=== PATIENT | female | born 1995 | race Hispanic/Latino ===

== ENCOUNTER 2019-11-06 07:25 | Outpatient (CLI) | payer MEDICAID, SELFPAY ==
[2016-07-11 04:05] VITALS: BMI 31.0
[2019-11-06 07:37] VITALS: BMI 28.8
--- NOTE | 2019-11-06 08:10 | PCM.HP.OB ---
- Problem List (1) 37 weeks gestation of Status: Acute (2) Multiparous Status: Acute History Date of Admission: 11/06/19 Final APURVA: 11/27/19 Final APURVA Source: US <20 weeks Gestational age: 37 Weeks and 0 Days History of this : This is a 24 year-old, who presents at 37 wks for scheduled version. Baby was breech and then transverse on prior ultrasounds. No ctx, vb, lof. Good FM. Medical History: Medical History (Last Updated 11/06/19 @ 08:13 by Mercedez Wall DO) History of drug use Z87.898 History of hepatitis C Z86.19 History of depression Z87.59, Z86.59 Tobacco use Z72.0 Allergies No Known Allergies Allergy (Verified 07/11/16 04:12) Home Medications: Home Medications Vits [Prenatabs FA ] 1 tablet PO DAILY 06/20/14 Oxycodone HCl/Acetaminophen [Percocet 5-325] 1 - 2 tablet PO Q4H PRN PRN #20 tablet 06/21/14 Naproxen [Naprosyn] 250 - 500 mg PO Q8H PRN PRN #30 tablet 07/11/16 Oxycodone HCl/Acetaminophen [Percocet 5-325] 2 tablet PO Q4H PRN PRN #10 tablet 07/13/16 Smoking Status: Former smoker Number of Fetus(es): 1 NST - FHR Rate Baby A Baseline: 130 Variability:: Moderate Accelerations:: 15 x 15 Decelerations:: None NST Reactive:: Yes Uterine Activity:: Irritability History Past Pregnancies: Past Pregnancies Delivery Date Name GA/ Weeks Outcome Route Wt Sex Labor Length Anesthesia Delivery Location Provider FOB Physical Exam General: Alert, No apparent distress HEENT: Atraumatic Abdomen: Soft, Non Tender, Gravid Extremities:: No edema Neurological: Neuro grossly intact Estimated gestational size: Appropriate for gestational size Assessment/Plan All Active Problems 37 weeks gestation of (Acute) Multiparous (Acute) This is a 24 year-old, who presents at 37 wks for scheduled version. - NST reactive - TAUS performed and baby is now vertex presentation - No version needed at this time - RTO this week for weekly OB visit in the office
== END 2019-11-06 08:30 | disposition home or self-care (01) ==
LOC: WPOUT 07:35 → WP 07:36
PROVIDERS: Referring Provider Obstetrics & Gynecology; Visit Provider Obstetrics & Gynecology
DX: Z34.83 Encounter for supervision of other normal pregnancy, third trimester (principal)
CPT/HCPCS: 36415; 59025; 76815

== ENCOUNTER 2019-12-04 07:10 | Inpatient (IN) | payer MEDICAID, SELFPAY ==
[2019-12-04 07:38] VITALS: BMI 28.8
[2019-12-04] MEDS: Lactated Ringers 1,000 ML 50 ML IV (07:50)
[2019-12-04] MEDS: Oxytocin 30 units/NS 500 ml 30 UNITS/500 ML IV.SOLN IV (08:00)
[2019-12-04 08:11] LABS: Absolute Lymphocyte Count 2.04 X10^3/uL (0.83-4.51); Absolute Neutrophil Count 4.6 X10^3/uL (2.0-7.7); Basophil# 0.03 X10^3/uL; Basophil% 0.4 % (0-1); Eosinophil# 0.11 X10^3/uL; Eosinophils% 1.5 % (0-5); Hematocrit 36.6 % (37-47); Hemoglobin 12.6 g/dL (12.0-15.0); Lymphocyte # 2.04 X10^3/ul (4.0); Lymphocyte % 27.3 % (19-41); Mean Corp Hgb Conc 34.4 g/dL (32-36); Mean Corpuscular Hgb 30.9 pg (27.0-32.0); Mean Corpuscular Volume 89.7 fL (81-99); Mean Platelet Vol. 8.9 fl (6.2-12.0); NRBC Flagged by Analyzer 0 % (0-5); Neutrophil % 61.5 % (47-70); Platelet Count 236 K/mm3 (150-450); RBC Distribution Width SD 42.4 fl (35.1-43.9); Red Blood Count 4.08 M/mm3 (4.2-5.4); White Blood Count 7.5 K/mm3 (4.4-11.0)
[2019-12-04 08:25] LABS: Amphetamine Urine VISTA NEGATIVE (<1000 ng/mL); Barbiturate Urine VISTA NEGATIVE (< 200 ng/mL); Benzodiazepine Urine VISTA NEGATIVE (< 200 ng/mL); Cocaine Urine VISTA NEGATIVE (< 300 ng/mL); Ecstacy Urine VISTA NEGATIVE (< 500 ng/mL); Methadone Urine VISTA NEGATIVE (< 300 ng/mL); PCP Urine VISTA NEGATIVE (< 25 ng/mL); THC Urine VISTA POSITIVE (< 50 ng/mL); Vista UDS pH Range 6
--- NOTE | 2019-12-04 13:08 | PCM.HP.OB ---
History Date of Admission: 12/04/19 Final APURVA: 11/27/19 Final APURVA Source: US <20 weeks Gestational age: 41 Weeks and 0 Days History of this : This is a 24 year-old, G [], P [], at 41 weeks gestational age. Medical History: Medical History (Last Updated 11/06/19 @ 08:13 by Mercedez Wall DO) History of drug use Z87.898 History of hepatitis C Z86.19 History of depression Z87.59, Z86.59 Tobacco use Z72.0 Allergies No Known Allergies Allergy (Verified 12/04/19 07:39) Smoking Status: Former smoker Alcohol: None Substance Use Type: Marijuana Number of Fetus(es): 1 NST - FHR Rate Baby A Baseline: normal Variability:: Moderate Accelerations:: 15 x 15 Decelerations:: None NST Reactive:: Appropriate for gestational age FHR Category:: Category I Uterine Activity:: irreg ctxs History Past Pregnancies: Past Pregnancies Delivery Date Name GA/ Weeks Outcome Route Wt Sex Labor Length Anesthesia Delivery Location Provider FOB Expected Infant Delivery Method: Spontaneous Vaginal Review of Systems Constitutional: Denies: Chills, Fever Eyes: Denies: Blurred vision Cardiovascular: Denies: Chest Pain Respiratory: Denies: Cough, Shortness of Breath Gastrointestinal: Denies: Abdominal Pain, Nausea, Vomiting Genitourinary: Denies: Dysuria Gynecological: Denies: Vaginal discharge, Vaginal itching Skin: Denies: Rash Neurological: Denies: Blurred vision, Change in Speech, Slurred speech Physical Exam General: Alert, Cooperative, No apparent distress Cardiovascular: Regular rate Lungs: Normal air movement Abdomen: Soft, Non-Distended, Gravid, Appropriate for Gestational Age Extremities:: No edema Neurological: Cranial nerves II-XII grossly intact. 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 Risk benefits alternatives to induction been discussed with the patient. Her questions were answered to her satisfaction she desires to proceed. We will proceed with Pitocin artificial rupture membranes for induction. May have epidural or IV pain meds or nitrous oxide as needed for pain control. Estimated weight is less than 4000 g and pelvis clinically adequate to expect vaginal delivery.
[2019-12-04] MEDS: Oxytocin 30 units/NS 500 ml 30 UNITS/500 ML IV.SOLN 334 UNITS IV (17:10)
--- NOTE | 2019-12-04 17:40 | PCM.OPRPT ---
Report of Operation Date of Procedure: 12/04/19 Pre-Operative Diagnosis: labor Post-Operative Diagnosis: same Vaginal Delivery Maternal Presentation: Medically Indicated Induction Method of Induction: Pitocin, Amniotomy Medical Reason for Induction: - - 41 weeks Amniotic Membrane Rupture Type: Artificial Amniotic Fluid Description: Clear Final APURVA: 11/27/19 Final APURVA Source: US <20 weeks Gestational age: 41 Weeks and 0 Days Date of Procedure: 12/04/19 Pre-Operative Diagnosis: labor Post-Operative Diagnosis: same Surgery/ Procedure Performed: Spontaneous Vaginal Delivery Type of Anesthesia: None Description of Procedure: A vigorous female infant was delivered TAYLOR over intact perineum. The remainder the infant was delivered with maternal pushing and gentle traction only in less than 15 seconds. The Pitocin infusion was initiated for active management of the third stage. The cord was clamped and cut after 1 minute. The was attended to by the waiting nursing staff. The placenta was delivered spontaneously and intact. The placenta somewhat ragged but appeared intact. A brief ultrasound was done that confirmed the endometrial stripe and no evidence of retained products was noted. The cervix and vagina were intact. Sponge and needle counts were correct. A vaginal sweep was completed by me. Presentation: TAYLOR Placental Delivery Description: Spontaneous Placenta Disposition: [facility] Cord Vessel Description: 3 Vessels Cord Entanglement: None Drain: - - none Estimated Blood Loss: 300 Infant A gender: Female (1 minute): 8 (5 minute): 9 Episiotomy Description: None Laceration: None Medications given after delivery: IV Pitocin Complications: None
[2019-12-04] MEDS: Naproxen 250 MG Tablet 500 MG PO (19:18)
[2019-12-04] MEDS: Acetaminophen 500 MG Tablet 1000 MG PO (21:36)
[2019-12-04 23:49] VITALS: BP 115/75; PULSE 68; RESP 17; TEMP 36.3
[2019-12-05 04:29] VITALS: BP 94/55; PULSE 78; RESP 17; TEMP 36.4
[2019-12-05 08:00] VITALS: BP 119/83; PULSE 61; RESP 16; TEMP 36.3
[2019-12-05] MEDS: Naproxen 250 MG Tablet 500 MG PO (08:08)
--- NOTE | 2019-12-05 08:33 | PN.OBGYN_ITS ---
Subjective: Pt doing well. Pain controlled. Lochia normal. Denies lightheadedness, dizziness, CP, SOB, leg pain. Tolerating reg diet w/o N/V. Urinating w/o diff iculty. Ambulating w/o difficulty. - Physical Exam Vitals/I&O's: Vital Signs Temp Pulse Resp BP 97.3 F L 61 16 119/83 H 12/05/19 08:00 12/05/19 08:00 12/05/19 08:00 12/05/19 08:00 Oxygen Delivery Method Room Air Weight: 173 lb 4.533 oz Body Mass Index (BMI) 28.8 Intake and Output for Last 24 Hours 12/03/19 12/04/19 12/05/19 23:59 23:59 23:59 Intake Total 1514.23 / 1514.23 Output Total 2350 / 2350 Balance -835.77 / -835.77 General: Alert, No apparent distress HEENT: Atraumatic Abdomen: Soft, Non Tender, - - FF@U-1 Extremities: No edema, No Calf Tenderness Skin: No rashes Neurological: Neuro grossly intact Psych/Mental Status: Normal Affect, Appropriate Laboratory Results 12/04/19 07:50: Blood Type A POSITIVE, Antibody Screen NEGATIVE Current Medications Acetaminophen (Tylenol) 1,000 mg PO Q8H PRN PRN PRN Reason: Pain Score 1-3/10 Last Admin: 12/04/19 21:36 Dose: 1,000 mg Documented by: Bisacodyl (Dulcolax) 10 mg RECTAL UD PRN PRN Reason: If no BM Dibucaine (Dibucaine) 1 applic TOPICAL TID PRN PRN; Protocol PRN Reason: Discomfort Hydrocortisone (Hytone) 1 applic TOPICAL TID PRN PRN; Protocol PRN Reason: Discomfort Methylergonovine Maleate (Methergine) 0.2 mg IM X1 PRN PRN Reason: Excess bleeding/uterine atony Naproxen (Naprosyn) 500 mg PO Q8H PRN PRN PRN Reason: Pain Score 1-3/10 Last Admin: 12/05/19 08:08 Dose: 500 mg Documented by: Ondansetron HCl (Zofran) 4 mg IV Q4H PRN PRN PRN Reason: Nausea Senna/Docusate Sodium (Senokot-S, Sada-Colace) 1 - 2 tablet PO DAILY PRN PRN PRN Reason: Constipation Simethicone (Mylicon) 80 mg PO PCHS PRN PRN Reason: Indigestion/Stomach pain Sodium Chloride () 5 - 15 ml IV UD PRN PRN Reason: SALINE FLUSH Medical Necessity - Tobacco Use Smoking Status: Former smoker Assessment/Plan All Active Problems (Last Updated 11/06/19 @ 08:13 by Mercedez Wall DO) 37 weeks gestation of (Acute) Multiparous (Acute) PPD#1 s/p - Doing well - - PPBC: Desires [place] at 6 wks - UDS positive for marijuana on admission. To meet with social work today - Dispo: Pt desires to go home today. Discharge instructions reviewed. Discussed may d/c home at least 24 hrs after delivery and after meeting with social work, if baby is okay for discharge
--- NOTE | 2019-12-05 08:37 | DCINST_ITS ---
Discharge Diet: No Restrictions Discharge Activity: May Shower, May Take a Tub Bath May resume sexual activity in: 6 weeks Weight Bearing Status: Weight bearing as tolerated Lifting Restrictions: None Call your doctor if you observe: Fever of 101 or Higher, Inability to urinate, Inability to have a bowel movement, Using more than one pad per hour, Shortness of breath, Dizziness, Chest pain, Increased palpitations (irregular heartbeat), Calf discomfort, Uncontrolled pain Cleanse incision/area with: Soap & Water Instructions: After a Vaginal Additional Instructions: If you experience any of the following, contact your healthcare provider. * Bleeding that soaks a pad every hour for 2 hours * Fever 100.4 or higher * Unrelieved incision or abdominal pain * Swelling, redness, discharge or bleeding from your incision or episiotomy site * Your incision begins to separate * Problems urinating (including inability to urinate or burning while urinating). * Visual changes * Severe headache * Flu-like symptoms * Pain or redness in one of both of your breasts * Pain, warmth, tenderness or swelling in your legs, especially the calf area * Frequent nausea and vomiting * Symptoms of depression or anxiety If you experience any of the following, call 911 or go to the nearest Emergency Room. * Chest pain * Problems breathing * Seizure activity * Partial or complete paralysis of a body part, slurred speech, weakness or drooping of the face, or a sudden inability to walk or hold your balance Allergies/Adverse Reactions: Allergies No Known Allergies Allergy (Verified 12/04/19 07:39) Please Follow Up With: Tena Rooney MD When: 1 week and 6 weeks. Primary Care Physician: Care Physician,No Primary [Primary Care Provider] - Test Results: Test results from this visit will be discussed in further detail at your follow- up appointment, if applicable. Proposed Discharge Date: 12/05/19
--- NOTE | 2019-12-05 08:37 | PCM.DCVAG ---
Discharge Diet: No Restrictions Discharge Activity: May Shower, May Take a Tub Bath May resume sexual activity in: 6 weeks Weight Bearing Status: Weight bearing as tolerated Lifting Restrictions: None Call your doctor if you observe: Fever of 101 or Higher, Inability to urinate, Inability to have a bowel movement, Using more than one pad per hour, Shortness of breath, Dizziness, Chest pain, Increased palpitations (irregular heartbeat), Calf discomfort, Uncontrolled pain Cleanse incision/area with: Soap & Water Instructions: After a Vaginal Additional Instructions: If you experience any of the following, contact your healthcare provider. Bleeding that soaks a pad every hour for 2 hours Fever 100.4 or higher Unrelieved incision or abdominal pain Swelling, redness, discharge or bleeding from your incision or episiotomy site Your incision begins to separate Problems urinating (including inability to urinate or burning while urinating). Visual changes Severe headache Flu-like symptoms Pain or redness in one of both of your breasts Pain, warmth, tenderness or swelling in your legs, especially the calf area Frequent nausea and vomiting Symptoms of depression or anxiety If you experience any of the following, call 911 or go to the nearest Emergency Room. Chest pain Problems breathing Seizure activity Partial or complete paralysis of a body part, slurred speech, weakness or drooping of the face, or a sudden inability to walk or hold your balance Allergies/Adverse Reactions: Allergies No Known Allergies Allergy (Verified 12/04/19 07:39) Please Follow Up With: Tena Rooney MD When: 1 week and 6 weeks. Primary Care Physician: Care Physician,No Primary [Primary Care Provider] - Test Results: Test results from this visit will be discussed in further detail at your follow-up appointment, if applicable. Proposed Discharge Date: 12/05/19
[2019-12-05 12:00] VITALS: BP 124/81; PULSE 76; RESP 16; TEMP 36.4
[2019-12-05 15:54] VITALS: BP 129/82; PULSE 70; RESP 15; TEMP 36.6
== END 2019-12-05 19:30 | disposition home or self-care (01) | DRG 560 ==
PROVIDERS: Admitting Provider Obstetrics & Gynecology; Referring Provider Obstetrics & Gynecology; Visit Provider Obstetrics & Gynecology
DX: O48.0 Post-term pregnancy (principal); Z3A.41 41 weeks gestation of pregnancy; Z37.0 Single live birth; Z87.891 Personal history of nicotine dependence; Z86.19 Personal history of other infectious and parasitic diseases; Z87.59 Personal history of other complications of pregnancy, childbirth and the puerperium; Z86.59 Personal history of other mental and behavioral disorders
CPT/HCPCS: 59025; 59050; 76815; 80307; 85025; 86850; 86900; 86901; 99218; J7120; G0378

== ENCOUNTER → 2022-07-22 | Outpatient (CLI) | payer MEDICAID, SELFPAY ==
[2022-07-22 16:00] LABS: Absolute Lymphocyte Count 1.52 X10^3/uL (0.83-4.51); Absolute Neutrophil Count 3.7 X10^3/uL (2.0-7.7); Basophil# 0.04 X10^3/uL; Basophil% 0.7 % (0-1); Eosinophil# 0.12 X10^3/uL; Hematocrit 40.7 % (37-47); Lymphocyte # 1.52 X10^3/ul (0.83-4.51); Lymphocyte % 25.9 % (19-41); Mean Corp Hgb Conc 34.4 g/dL (32-36); Mean Corpuscular Hgb 32.2 pg (27.0-32.0); Mean Corpuscular Volume 93.6 fL (81-99); Mean Platelet Vol. 8.5 fl (6.2-12.0); Monocyte# 0.44 X10^3/uL; Monocyte% 7.5 % (0-10); NRBC Flagged by Analyzer 0 % (0-5); Neutrophil # 3.72 X10^3/uL (2.7-7.7); Neutrophil % 63.4 % (47-70); Platelet Count 303 K/mm3 (150-450); RBC Distribution Width CV 12.6 % (11.6-14.6); RBC Distribution Width SD 43.5 fl (35.1-43.9); Red Blood Count 4.35 M/mm3 (4.2-5.4); White Blood Count 5.9 K/mm3 (4.4-11.0)
[2022-07-22 16:10] LABS: Prothrombin Time (Protime)PT. 12.3 SECONDS (11.7-14.9)
[2022-07-22 16:17] LABS: Erythrocyte Sedimentation Rate 10 mm/hr (0-30)
[2022-07-22 16:48] LABS: Hemoglobin A1c 4.9 % (3.8-5.6)
[2022-07-22 16:50] LABS: ALB/GLOB Ratio 0.9 RATIO (0.9-2.4); AST(SGOT) 46 U/L (15-37); Alanine Aminotransfer ALT/SGPT 98 U/L (13-56); Alkaline Phosphatase 51 U/L (45-117); Anion Gap 5 (5-15); BUN 15 mg/dL (7-18); BUN/Creat Ratio 27.8 RATIO (10-20); CRP < 2.90 mg/L (0.0-3.0); Calcium,Total 9.1 mg/dL (8.5-10.1); Chloride 101 mmol/L (98-107); Creatinine, Serum 0.54 mg/dL (0.55-1.02); EST Glomerular Filtration Rate 143 mL/min (>60); Est Glom Filt Rate - Afr Amer 173 mL/min (>60); Ferritin 43 ng/mL (8-252); Globulin 4.6 g/dL (2.2-4.2); Glucose 93 mg/dL (74-106); LDH 246 U/L (84-246); Potassium 3.6 mmol/L (3.5-5.1); Protein, Total 8.6 g/dL (6.4-8.2); Sodium Level 138 mmol/L (136-145)
[2022-07-26 13:07] LABS: Anti-Centromere B Ab <0.2 AI (0.0-0.9); Anti-Chromatin <0.2 AI (0.0-0.9); Anti-Jo <0.2 AI (0.0-0.9); Anti-Scleroderma-70 AB <0.2 AI (0.0-0.9); RNP Ab 0.3 AI (0.0-0.9); SJOGREN'S Anti-SS-A test 0.2 AI (0.0-0.9); SJOGREN'S Anti-SS-B test < 0.2 AI (0.0-0.9); Smith Ab <0.2 AI (0.0-0.9)
[2022-07-27 15:23] LABS: Anti-Mitochondrial AB <20.0 Units (0.0-20.0); Anti-dsDNA Ab 1 IU/mL (0-9)
== END | disposition home or self-care (01) ==
LOC: LAB 14:53
PROVIDERS: Visit Provider Nurse Practitioner Adult Health
DX: R74.8 Abnormal levels of other serum enzymes (principal); B19.20 Unspecified viral hepatitis C without hepatic coma
CPT/HCPCS: 36415; 80053; 82105; 82140; 82164; 82390; 82525; 82728; 83010; 83036; 83516; 83615; 85025; 85610; 85652; 86140; 86225; 86235; 86256; 87522; 87902

== ENCOUNTER → 2022-07-29 | Outpatient (CLI) | payer MEDICAID, SELFPAY ==
--- NOTE | 2022-07-29 08:37 | CT_ITS ---
STUDY: CT ABDOMEN AND PELVIS WITH CONTRAST REASON FOR EXAM: Female, 27 years old. Hepatitis C RADIATION DOSAGE (If Supplied By Facility): CTDIvol = ( 7.03 ) mGy, DLP = ( 565.45 ) mGycm TECHNIQUE: Transaxial images were obtained from the dome of the diaphragm to the symphysis pubis with oral contrast. Oral and amp; IV Readi-CAT and amp; 100mL Isovue-300 was administered. Sagittal and coronal images were reconstructed. Individualized dose optimization techniques were used for this CT. COMPARISON: None. FINDINGS: The visualized lung bases are unremarkable. The visualized portions of the heart are within normal limits. Normal liver. Normal gallbladder and extrahepatic biliary system. Normal spleen. Normal pancreas. Normal bilateral adrenal glands. Normal right kidney. Normal left kidney. Normal visualized stomach. Normal small intestine. There are scattered colonic diverticula consistent with diverticulosis. Moderate amount of fecal material is seen in the colon. The appendix is visualized and appears normal. Normal abdominal aorta. Normal inferior vena cava. Normal retroperitoneum. Normal urinary bladder. IUD is seen within the uterus. Normal abdominal wall. Normal osseous structures. CT/Abdomen/Pelvis WITH Contrast IMPRESSION: Normal enhanced CT of the abdomen and pelvis. Electronically Signed: Domingo Crowley MD at 10:42 EDT ,
== END | disposition home or self-care (01) ==
LOC: CT 08:36
PROVIDERS: Referring Provider Nurse Practitioner Adult Health; Visit Provider Nurse Practitioner Adult Health
DX: B19.20 Unspecified viral hepatitis C without hepatic coma (principal)
CPT/HCPCS: 74177; Q9967

== ENCOUNTER 2023-05-31 18:49 | Inpatient (IN) | payer MEDICAID, SELFPAY ==
[2023-05-31 18:51] VITALS: BP 146/101; PULSE 128; RESP 18; TEMP 36.7; O2SAT 93; BMI 27.1
--- NOTE | 2023-05-31 19:04 | EX.ED.DYSGE1 ---
HPI History of Present Illness Chief Complaint: Flank Pain Detail of Chief Complaint: Flank pain, dysuria, desire for detox Informant: patient Narrative Narrative: Patient presents with 4-day history of left-sided flank pain and dysuria. She had subjective fevers at home. She reports some nausea. She denies history of kidney stone but does report a history of kidney infections. Patient also is requesting help with alcohol detox. She has been drinking 2 bottles of gas station vodka every night. She states she does not want to drink anymore and is interested in inpatient treatment for detox. She denies ever having a seizure from alcohol withdrawal in the past. She denies any other drug use. [facility] Medical History History of drug use History of hepatitis C History of depression Multiparous Tobacco use Home Medications buprenorphine 8 mg-naloxone 2 mg sublingual film 1 film buccal DAILY 06/11/22 [History Last Taken Unknown] Allergy/AdvReac Type Severity Reaction Status Date / Time No Known Allergies Allergy Verified 05/31/23 18:50 Family History Mother Diabetes Hypertension Thyroid disorder Social History Smoking Status: Current every day smoker tobacco type: cigarettes alcohol intake: current alcohol intake frequency: a few times a week substance use type: marijuana ROS ROS ED Constitutional Constitutional ED: Reports fever(s) and subjective Eyes Eyes: Denies change in vision or discharge from eye(s) ENT ENT ED: Denies discharge from eye(s), rhinorrhea or sore throat Cardiovascular Cardiovascular: Denies chest pain or palpitations Respiratory/Chest Respiratory/Chest: Denies cough or dyspnea Gastrointestinal Gastrointestinal: Reports abdominal pain and nausea; Denies diarrhea or vomiting Genitourinary Genitourinary ED: Reports dysuria and urinary frequency Musculoskeletal Musculoskeletal: Reports back pain; Denies extremity pain Integumentary Denies Abrasions or rash Neurologic Neurologic: Denies headache(s) or weakness Psychiatric Psychiatric: Denies anxiety or depression Allergic/Immunologic Allergic/Immunologic ED: Denies lip swelling or urticaria EXAM Physical Exam Const Vital Signs: 05/31/23 18:51 05/31/23 19:26 Temperature 98.1 F Temperature Source Temporal Pulse Rate 128 H Respiratory Rate 18 Respiratory Effort Normal Non-Labored Respiratory Pattern Normal Blood Pressure 146/101 H Blood Pressure Mean 116 Pulse Ox 93 Oxygen Delivery Method Room Air Positive well nourished and well developed General Appearance ED: well developed HEENT Reports normocephalic and head/scalp atraumatic Eyes PERRL and EOMs intact bilaterally Neck supple Chest Wall inspection of chest normal and palpation of chest normal Resp normal respiratory effort and clear to auscultation bilaterally Cardio regular rhythm Rate: tachycardic GI non-tender Palpation: soft Back/Spine General Back: CVA tenderness left Extremity normal to inspection Neuro oriented x3 and no sensory deficits noted Sensorium / Orientation: alert Motor Exam: strength 5/5 throughout Psych mental status grossly normal Skin no rashes or lesions noted MDM MDM MDM Narrative Medical decision making narrative: Lab work for the detox program is obtained. Urinalysis obtained due to concern for UTI/pyelonephritis and urine culture is sent. Patient is given IV fluids. Requirements of the detox program are reviewed with the patient and she has signed the form. Lab Data Attestation: I reviewed the patient's lab results. Labs: Laboratory Results - last 24 hr 05/31/23 05/31/23 19:15 19:20 WBC 11.5 H RBC 4.06 L Hgb 13.3 Hct 37.3 MCV 91.9 MCH 32.8 H MCHC 35.7 RDW Std Deviation 42.2 RDW Coeff of [place] 12.5 Plt Count 104 L MPV 9.1 Immature Gran % (Auto) 1.100 H Neut % (Auto) 84.1 H Lymph % (Auto) 3.5 L [place] % (Auto) 11.0 H Eos % (Auto) 0.1 Baso % (Auto) 0.2 Absolute Neuts (auto) 9.7 H Absolute Lymphs (auto) 0.40 L Nucleated RBC % 0 Differential Comment SEE COMMENT Platelet Estimate MOD DEC RBC Morphology N CHROM Anisocytosis RARE Macrocytosis RARE Sodium 131 L Potassium 3.0 L Chloride 95 L Carbon Dioxide 28.0 Anion Gap 8 BUN 11 Creatinine 0.92 Estim Creat Clear Calc 81.92 Est GFR (MDRD) Af Amer 93 Est GFR (MDRD) Non-Af 77 BUN/Creatinine Ratio 12.0 Glucose 122 H Calcium 8.6 Total Bilirubin 1.10 H AST 65 H ALT 101 H Alkaline Phosphatase 79 Total Protein 7.9 Albumin 2.8 L Globulin 5.1 H Albumin/Globulin Ratio 0.5 L Serum , Qual NEGATIVE Urine Color Yellow Urine Clarity Clear Urine pH 7.0 Ur Specific [place] 1.010 Urine Protein 100 H Urine Glucose (UA) Normal Urine Ketones Negative Urine Occult Blood 250 H Urine Nitrite Negative Urine Bilirubin Negative Urine Urobilinogen 4 H Ur Leukocyte Esterase 500 H Urine RBC 0-5 SEEN Urine WBC 0-5 SEEN Ur Squamous Epith Cells 0-5 SEEN Urine Bacteria 1+ Urine Mucus 0 SEEN Urine Opiates Screen NEGATIVE Urine Methadone Screen NEGATIVE Ur Barbiturates Screen NEGATIVE Ur Phencyclidine Scrn NEGATIVE Ur Amphetamines Screen NEGATIVE MDMA (Ecstasy) Screen NEGATIVE U Benzodiazepines Scrn NEGATIVE Urine Cocaine Screen NEGATIVE U Cannabinoids Screen POSITIVE H Ur Drug Screen Comment Ethyl Alcohol < 3.0 Additional Tests and Interventions Additional Tests or Interventions: CBC was a white count 11.5 with 84% neutrophils. Hemoglobin normal at 13.3. Chemistry studies reveal a sodium of 133 and a potassium of 3.0. This is replaced orally. IV fluids are being given. Renal function is normal. LFTs reveal a total bili of 1.1, AST of 65, ALT of 101. test is negative. Urinalysis does reveal signs of infection with 1+ bacteria, 500 leukocyte esterase. Urine tox screen is positive for cannabinoids. EtOH is less than 3. On repeat evaluation patient's reporting some nausea and cramping. She also feels anxious. She will be given Toradol and Zofran at this time. I will speak with hospitalist regarding admission. Discharge Plan Triage Chief Complaint: Flank Pain ED Provider: Carmen Lee Dx/Rx/DC Orders Clinical Impression: UTI (urinary tract infection), Desire for detoxification, ETOH abuse Prescriptions: No Action buprenorphine-naloxone 8-2 mg film 1 film buccal DAILY Primary Care Provider: Care Physician,No Primary Referrals: Care Physician,No Primary [Primary Care Provider] - Disposition Disposition: Acute Care Hospital [facility]
[2023-05-31] MEDS: 0.9% Normal Saline 1,000 ML 150 ML IV (19:21)
[2023-05-31 19:27] LABS: Mucous, Urine 0 SEEN /hpf (<or=2+)
[2023-05-31 19:29] LABS: Absolute Neutrophil Count 9.7 X10^3/uL (2.0-7.7); Basophil# 0.02 X10^3/uL; Basophil% 0.2 % (0-1); Eosinophil# 0.01 X10^3/uL; Eosinophils% 0.1 % (0-5); Hematocrit 37.3 % (37-47); Hemoglobin 13.3 g/dL (12.0-15.0); Lymphocyte % 3.5 % (19-41); Mean Corp Hgb Conc 35.7 g/dL (32-36); Mean Corpuscular Hgb 32.8 pg (27.0-32.0); Mean Corpuscular Volume 91.9 fL (81-99); Mean Platelet Vol. 9.1 fl (6.2-12.0); Monocyte# 1.27 X10^3/uL; NRBC Flagged by Analyzer 0 % (0-5); Neutrophil % 84.1 % (47-70); POSITIVE DIFFERENTIAL YES; POSITIVE MORPHOLOGY YES; Platelet Count 104 K/mm3 (150-450); RBC Distribution Width CV 12.5 % (11.6-14.6); RBC Distribution Width SD 42.2 fl (35.1-43.9); Red Blood Count 4.06 M/mm3 (4.2-5.4); White Blood Count 11.5 K/mm3 (4.4-11.0)
[2023-05-31 19:43] LABS: Internal QC Validated? YES +Cl - CLEAR BKGD; Pregnancy, Serum, hCG Quali. NEGATIVE Negative
[2023-05-31 19:43] LABS: Amphetamine Urine VISTA NEGATIVE (<1000 ng/mL); Barbiturate Urine VISTA NEGATIVE (< 200 ng/mL); Benzodiazepine Urine VISTA NEGATIVE (< 200 ng/mL); Cocaine Urine VISTA NEGATIVE (< 300 ng/mL); Ecstacy Urine VISTA NEGATIVE (< 500 ng/mL); Methadone Urine VISTA NEGATIVE (< 300 ng/mL); PCP Urine VISTA NEGATIVE (< 25 ng/mL); THC Urine VISTA POSITIVE (< 50 ng/mL); Vista UDS pH Range 7
[2023-05-31 19:46] LABS: Color, Urine Yellow (Yellow); Glucose, Dipstick Normal (Normal); Ketone-Dipstick Negative (Negative); Leukocyte Esterase-Dipstick 500 /ul (Negative); Nitrite-Dipstick Negative (Negative); Occult Blood-Urine 250 /ul (Negative); Protein-Dipstick 100 mg/dl (Negative); Urine Bilirubin Dipstick Negative (Negative); Urine Clarity Clear (Clear); Urine Urobilinogen 4 mg/dl (Normal)
[2023-05-31 19:46] LABS: ALB/GLOB Ratio 0.5 RATIO (0.9-2.4); AST(SGOT) 65 U/L (15-37); Alanine Aminotransfer ALT/SGPT 101 U/L (13-56); Albumin, Serum 2.8 g/dL (3.2-5.0); Alkaline Phosphatase 79 U/L (45-117); Anion Gap 8 (5-15); BUN 11 mg/dL (7-18); Calcium,Total 8.6 mg/dL (8.5-10.1); Chloride 95 mmol/L (98-107); Creatinine, Serum 0.92 mg/dL (0.55-1.02); EST Glomerular Filtration Rate 77 mL/min (>60); Est Glom Filt Rate - Afr Amer 93 mL/min (>60); Estimated Creatinine Clearance 81.92 ml/min; Globulin 5.1 g/dL (2.2-4.2); Glucose 122 mg/dL (74-106); Protein, Total 7.9 g/dL (6.4-8.2); Sodium Level 131 mmol/L (136-145)
[2023-05-31 19:48] LABS: Alcohol, Blood (Medical)-Serum < 3.0 mg/dL
[2023-05-31 19:54] LABS: Differential Indicated SCAN CRITERIA MET
[2023-05-31 20:09] LABS: Squamous Epithelial Cells - UA 0-5 SEEN /hpf (5-10); White Blood Cells 0-5 SEEN /hpf (0-5)
[2023-05-31 20:10] LABS: Bacteria 1+ /hpf (None Seen); Red Blood Cells-Urine 0-5 SEEN /hpf (0-5)
[2023-05-31] MEDS: Potassium Chloride Oral Tablet 20 MEQ 40 MEQ PO (20:30)
[2023-05-31] MEDS: Ceftriaxone 1 GM/50 ML BAG IV (20:31)
[2023-05-31 20:34] LABS: Platelet Estimate MOD DEC (ADEQ)
[2023-05-31 20:35] LABS: Anisocytosis RARE; Macrocytosis RARE; Red Cell Morphology N CHROM NORMAL (NORM C&C)
[2023-05-31 20:41] VITALS: BP 121/63; PULSE 109; RESP 18; O2SAT 95
[2023-05-31] MEDS: Ketorolac 30 MG/ML Syringe IV (20:46)
[2023-05-31] MEDS: Ondansetron 4 MG/2 ML Vial IV (20:47)
--- NOTE | 2023-05-31 21:18 | PCM.HP.STD ---
[facility] - General General Date of Admission: 05/31/23 Date of Service: 05/31/23 Chief Complaint: left side abdominal pain; desire to detox from alcohol HPI Narrative TRES MERIDA, is a 27 F with a significant history of hepatitis C who presents to the emergency department with abdominal pain and a desire for alcohol detoxification. Abdominal pain: She reports pain at the left lumbar area. She rated pain as 8-9 on a scale of 1-10. The pain is sharp. The pain is persistent and it has been worsening. The pain began in the last 3 to 4 days. The pain radiates to her back. The pain increases with coughing. The pain decreases with lying on the same side. Associated with her symptoms is dysuria. Also she reports polyuria and polydipsia. Alcoholism: Patient has been drinking for about the past 2 years. For the past 2 years see has been drinking 1 bottle of vodka each day. However in the past 2 months has been drinking about 2 bottles of vodka each day. She reports nausea; and feeling hot and cold. She reports headache and back pain with coughing. She thinks that she is beginning to withdraw from alcohol. Last time she drank was a day before presentation. [facility] Medical History History of drug use History of hepatitis C History of depression Multiparous Tobacco use Home Medications buprenorphine 8 mg-naloxone 2 mg sublingual film 1 film buccal DAILY detox 06/11/22 [History Last Taken Unknown] Allergy/AdvReac Type Severity Reaction Status Date / Time No Known Allergies Allergy Verified 05/31/23 18:50 Family History Mother Diabetes Hypertension Thyroid disorder no surgical history Social History Smoking Status: Current every day smoker tobacco type: cigarettes alcohol intake: current alcohol intake frequency: a few times a week substance use type: marijuana ROS ROS Narrative Pertinent positives and pertinent negatives as noted in HPI. All other systems were reviewed and are negative Vital Signs Vital Signs Vital Signs: 05/31/23 18:51 05/31/23 19:26 05/31/23 20:41 Temperature 98.1 F Temperature Source Temporal Pulse Rate 128 H 109 H Respiratory Rate 18 18 Respiratory Effort Normal Non-Labored Respiratory Pattern Normal Blood Pressure 146/101 H 121/63 H Blood Pressure Mean 116 82 Pulse Ox 93 95 Oxygen Delivery Method Room Air Room Air Weight Weight: 74 kg Body Mass Index (BMI) 27.1 Physical Exam Narrative Physical exam: General: Well-nourished, well-developed. Head: Normocephalic, atraumatic, no tenderness Eyes: Vision is grossly intact. EOMI ENT, no trauma, moist mucous membranes, no rhinorrhea Neck: Nontender, No thyromegaly. CVS: Regular rate and rhythm. S1-S2 present. No murmur, gallop or rub. Respiratory : clear to auscultation bilaterally, chest wall nontender Abdomen: Soft, nontender, nondistended, normal bowel sounds, no masses : Deferred Back: Nontender, no CVA tenderness, no midline spinal tenderness, deformities, step-offs Extremities: Nontender full range of motion, no trauma Skin: Normal color, no trauma, abrasions Neuro: Alert, oriented, cranial nerves II through XII grossly intact. Psychiatry: Normal mood. Normal affect. Not depressed. Not anxious. Results Lab / Micro Data 05/31/23 19:20 05/31/23 19:20 Labs: Laboratory Results - last 24 hr 05/31/23 19:15: Urine Color Yellow, Urine Clarity Clear, Urine pH 7.0, Ur Specific [place] 1.010, Urine Protein 100 H, Urine Glucose (UA) Normal, Urine Ketones Negative, Urine Occult Blood 250 H, Urine Nitrite Negative, Urine Bilirubin Negative, Urine Urobilinogen 4 H, Ur Leukocyte Esterase 500 H, Urine RBC 0-5 SEEN, Urine WBC 0-5 SEEN, Ur Squamous Epith Cells 0-5 SEEN, Urine Bacteria 1+, Urine Mucus 0 SEEN, Urine Opiates Screen NEGATIVE, Urine Methadone Screen NEGATIVE, Ur Barbiturates Screen NEGATIVE, Ur Phencyclidine Scrn NEGATIVE, Ur Amphetamines Screen NEGATIVE, MDMA (Ecstasy) Screen NEGATIVE, U Benzodiazepines Scrn NEGATIVE, Urine Cocaine Screen NEGATIVE, U Cannabinoids Screen POSITIVE H, Ur Drug Screen Comment 05/31/23 19:20: WBC 11.5 H, RBC 4.06 L, Hgb 13.3, Hct 37.3, MCV 91.9, MCH 32.8 H, MCHC 35.7, RDW Std Deviation 42.2, RDW Coeff of [place] 12.5, Plt Count 104 L, MPV 9.1, Immature Gran % (Auto) 1.100 H, Neut % (Auto) 84.1 H, Lymph % (Auto) 3.5 L, [place] % (Auto) 11.0 H, Eos % (Auto) 0.1, Baso % (Auto) 0.2, Absolute Neuts (auto) 9.7 H, Absolute Lymphs (auto) 0.40 L, Nucleated RBC % 0, Differential Comment SEE COMMENT, Platelet Estimate MOD DEC, RBC Morphology N CHROM, Anisocytosis RARE, Macrocytosis RARE, Sodium 131 L, Potassium 3.0 L, Chloride 95 L, Carbon Dioxide 28.0, Anion Gap 8, BUN 11, Creatinine 0.92, Estim Creat Clear Calc 81.92, Est GFR (MDRD) Af Amer 93, Est GFR (MDRD) Non-Af 77, BUN/Creatinine Ratio 12.0, Glucose 122 H, Calcium 8.6, Total Bilirubin 1.10 H, AST 65 H, ALT 101 H, Alkaline Phosphatase 79, Total Protein 7.9, Albumin 2.8 L, Globulin 5.1 H, Albumin/Globulin Ratio 0.5 L, Serum , Qual NEGATIVE, Ethyl Alcohol < 3.0 Assessment & Plan Assessment/Plan (1) CARLA (acute kidney injury): (2) Desire for detoxification: (3) ETOH abuse: (4) UTI (urinary tract infection): QUALIFIERS: Hematuria presence: without hematuria Urinary tract infection type: acute cystitis Qualified Code(s): N30.00 - Acute cystitis without hematuria PLAN: Plan UTI Urinalysis is remarkable for leukocyte esterase; occult blood. However nitrite is negative. Urine WBC is normal 0-5 and urine bacteria is 1+. Ceftriaxone ordered. White count is mildly elevated at 11,500, trend. Noted to have bandemia of 1.1%; and neutrophilia; monocytosis but with lymphopenia. Blood culture was obtained from emergency department with results pending. CARLA Possibly mild CARLA Creatinine presentation was 0.92. Her creatinine on 07/22/2022 was 0.54. Gentle IV fluids. Trend. Hypokalemia Potassium 3.0 on presentation. Replacement ordered at the ED. Also normal saline with potassium ordered. Will trend BMP. Hyponatremia Sodium is 131. Likely secondary to alcoholism. Trend CMP. Counselled. Alcohol dependence and desire for detoxification Patient be started on phenobarbital and other adjunctive medications: Gabapentin as needed; dicyclomine as needed; Vistaril as needed; Imodium as needed; trazodone as needed; Zofran as needed; scheduled thiamine; and schedule folic acid. Monitor CIWA score Tobacco abuse Counseled Nicotine patch prescribed. DVT prophylaxis Low risk Encourage to ambulate Time spent in the patient's overall evaluation,decision-making process, review of diagnostic data, adjustment of management, discussion with other providers, nursing nursing and ancillary staff involved in patient's care documentation, 60 minutes. Charges/Coding Visit Charges Inpatient E&M: 19066 Init Hosp L3
[2023-05-31 21:41] VITALS: BP 123/76; PULSE 105; RESP 18; TEMP 37.4; O2SAT 96
[2023-05-31 21:42] VITALS: BP 123/76; PULSE 105; RESP 18; TEMP 37.4; O2SAT 96
[2023-05-31 22:25] VITALS: BMI 27.3
[2023-05-31 22:40] VITALS: BP 115/65; PULSE 94; RESP 18; TEMP 37.4; O2SAT 97
[2023-05-31] MEDS: traZODone 100 MG Tablet PO (22:55)
[2023-05-31] MEDS: Phenobarbital 32.4 MG Tablet PO (22:55)
[2023-05-31] MEDS: Gabapentin 300 MG Capsule PO (22:55)
[2023-05-31] MEDS: Potassium Chloride 40 MEQ in 0.9% Normal Saline 1,000 ML 150 MEQ IV (22:59)
[2023-06-01] MEDS: Phenobarbital 32.4 MG Tablet PO ×6 (02:50→21:49)
[2023-06-01] MEDS: Potassium Chloride 40 MEQ in 0.9% Normal Saline 1,000 ML 150 MEQ IV ×3 (05:48→21:42)
[2023-06-01 05:50] VITALS: BP 116/64; PULSE 115; RESP 18; TEMP 37.6; O2SAT 94
[2023-06-01 06:03] VITALS: TEMP 38.5
--- NOTE | 2023-06-01 06:22 | CT_ITS ---
INDICATION: Kidney stone EXAMINATION: CT ABDOMEN AND PELVIS WITHOUT CONTRAST - CT Abdomen And Pelvis W/O Contrast Injection TECHNIQUE: Helically acquired images were obtained of the abdomen and pelvis without oral or IV contrast. A radiation dose optimization technique was used for this scan. IV Contrast dosage and agent: None. Oral contrast: None. RADIATION DOSAGE (If Supplied By Facility): CTDIvol = ( 8.00 ) mGy, DLP = ( 401.67 ) mGycm COMPARISON: IV contrast enhanced CT abdomen and pelvis July 29, 2022 FINDINGS: LOWER CHEST: Lung bases are clear. No cardiomegaly or pericardial effusion. LIVER: Homogeneous but diffusely decreased attenuation of the liver parenchyma consistent with hepatic steatosis. There is an incompletely defined zone of even further decreased attenuation in the anterior left lobe of the liver lateral to the falciform ligament, consistent with a focus of more significant fatty infiltration. Right lobe of liver is 21.5 cm in height. Portal vein diameter is 15.5 mm. No focal mass. GALLBLADDER AND BILIARY TREE: No calcified gallstones. No gallbladder distension or wall edema. No intra- or extrahepatic biliary ductal dilation. PANCREAS: No focal cystic or solid mass. SPLEEN: Normal size without focal cystic or solid mass. ADRENAL GLANDS: No nodules. KIDNEYS AND URETERS: The right kidney is mildly rotated on its horizontal axis. Left kidney appears increased in size compared to the right, and there is ill-defined stranding in the perirenal soft tissues, consistent with congestive or inflammatory change. No stone is seen. No hydronephrosis. PERITONEUM: No ascites or free air. No other fluid collection. BOWEL: The appendix is not clearly visualized, but there is no evidence of acute appendicitis. No stomach or bowel distension. No focal inflammatory change. LYMPH NODES: No enlarged mesenteric or retroperitoneal lymph nodes. VESSELS: Aorta is non-dilated. URINARY BLADDER: Unremarkable. REPRODUCTIVE ORGANS: No pelvic masses. A T-shaped IUD is present in the endometrial cavity. ABDOMINAL WALL: No discrete abdominal or pelvic wall hernia. BONES: No lytic or blastic abnormality. Mild degenerative change seen at the left sacroiliac joint. CT/Abdomen/Pelvis without Cont IMPRESSION: 1. Left renal swelling with perinephric edema, suggesting pyelonephritis. No stone or hydronephrosis is seen at this time. In the right clinical setting, a stone that was causing obstruction but has recently passed might also give this appearance. 2. Hepatomegaly with steatosis. 3. IUD again noted in the endometrial cavity. Electronically Signed: Tutu Stevens MD at 8:34 EDT Reading Location ID and State: [id number] / Unknown , Service support ,
[2023-06-01 06:36] LABS: Absolute Lymphocyte Count 0.38 X10^3/uL (0.83-4.51); Absolute Neutrophil Count 6.9 X10^3/uL (2.0-7.7); Basophil# 0.08 X10^3/uL; Basophil% 0.9 % (0-1); Differential Indicated SCAN CRITERIA MET; Eosinophil# 0.02 X10^3/uL; Eosinophils% 0.2 % (0-5); Hematocrit 34.3 % (37-47); Lymphocyte # 0.38 X10^3/ul (0.83-4.51); Lymphocyte % 4.5 % (19-41); Mean Corpuscular Hgb 32.9 pg (27.0-32.0); Mean Platelet Vol. 9.1 fl (6.2-12.0); Monocyte# 1.05 X10^3/uL; Monocyte% 12.4 % (0-10); NRBC Flagged by Analyzer 0 % (0-5); Neutrophil # 6.87 X10^3/uL (2.7-7.7); Neutrophil % 81.4 % (47-70); POSITIVE COUNT YES; POSITIVE DIFFERENTIAL YES; POSITIVE MORPHOLOGY YES; Platelet Count 98 K/mm3 (150-450); RBC Distribution Width SD 44.8 fl (35.1-43.9); Red Blood Count 3.65 M/mm3 (4.2-5.4); White Blood Count 8.5 K/mm3 (4.4-11.0)
[2023-06-01] MEDS: 0.9% Saline Lock 10 ML Syringe IV ×4 (06:56→21:41)
[2023-06-01] MEDS: Ketorolac 15 MG/ML Vial IV ×3 (06:56→21:41)
[2023-06-01] MEDS: Ondansetron 8 MG Tablet PO ×2 (07:00→18:13)
[2023-06-01 07:06] LABS: ALB/GLOB Ratio 0.5 RATIO (0.9-2.4); AST(SGOT) 74 U/L (15-37); Alanine Aminotransfer ALT/SGPT 89 U/L (13-56); Albumin, Serum 2.3 g/dL (3.2-5.0); Alkaline Phosphatase 74 U/L (45-117); Anion Gap 5 (5-15); BUN 14 mg/dL (7-18); BUN/Creat Ratio 14.7 RATIO (10-20); Calcium,Total 7.7 mg/dL (8.5-10.1); Chloride 103 mmol/L (98-107); Creatinine, Serum 0.96 mg/dL (0.55-1.02); EST Glomerular Filtration Rate 74 mL/min (>60); Est Glom Filt Rate - Afr Amer 89 mL/min (>60); Estimated Creatinine Clearance 78.51 ml/min; Globulin 4.4 g/dL (2.2-4.2); Glucose 143 mg/dL (74-106); Potassium 3.5 mmol/L (3.5-5.1); Protein, Total 6.7 g/dL (6.4-8.2); Sodium Level 132 mmol/L (136-145)
[2023-06-01 07:12] LABS: Differential Comment SCANNED
[2023-06-01 07:13] LABS: Platelet Estimate SLT DEC (ADEQ)
--- NOTE | 2023-06-01 08:18 | PN.HOSP_ITS ---
Reason for Visit Reason for Visit: Diagnoses Alcohol abuse, uncomplicated (05/31/23) Acute kidney failure, unspecified (05/31/23) Acute cystitis without hematuria (05/31/23) Subjective Subjective Reports feeling better than she did yesterday, still has the sharp left-sided abdominal pain and reports it hurts when she takes deep breaths symptoms forward. Objective Data Objective Data Vital Signs: Vital Signs Temp Pulse Resp BP Pulse Ox O2 Del Method 101.3 F H 115 H 18 116/64 94 Room Air 06/01/23 06:03 06/01/23 05:50 06/01/23 05:50 06/01/23 05:50 06/01/23 05:50 06/01/23 07:48 Oxygen Delivery Method Room Air Weight: 74.6 kg Body Mass Index (BMI) 27.3 Intake & Output: Intake and Output for Last 24 Hours 05/30/23 05/31/23 06/01/23 23:59 23:59 23:59 Intake Total 585 / 585 1020 / 1020 Balance 585 / 585 1020 / 1020 Lab / Micro Data 06/01/23 06:25 06/01/23 06:25 Labs: Laboratory Results - last 24 hr 05/31/23 19:15: Urine Color Yellow, Urine Clarity Clear, Urine pH 7.0, Ur Specific [place] 1.010, Urine Protein 100 H, Urine Glucose (UA) Normal, Urine Ketones Negative, Urine Occult Blood 250 H, Urine Nitrite Negative, Urine Bilirubin Negative, Urine Urobilinogen 4 H, Ur Leukocyte Esterase 500 H, Urine RBC 0-5 SEEN, Urine WBC 0-5 SEEN, Ur Squamous Epith Cells 0-5 SEEN, Urine Bacteria 1+, Urine Mucus 0 SEEN, Urine Opiates Screen NEGATIVE, Urine Methadone Screen NEGATIVE, Ur Barbiturates Screen NEGATIVE, Ur Phencyclidine Scrn NEGATIVE, Ur Amphetamines Screen NEGATIVE, MDMA (Ecstasy) Screen NEGATIVE, U Benzodiazepines Scrn NEGATIVE, Urine Cocaine Screen NEGATIVE, U Cannabinoids Screen POSITIVE H, Ur Drug Screen Comment 05/31/23 19:20: WBC 11.5 H, RBC 4.06 L, Hgb 13.3, Hct 37.3, MCV 91.9, MCH 32.8 H , MCHC 35.7, RDW Std Deviation 42.2, RDW Coeff of [place] 12.5, Plt Count 104 L, MPV 9.1, Immature Gran % (Auto) 1.100 H, Neut % (Auto) 84.1 H, Lymph % (Auto) 3.5 L, [place] % (Auto) 11.0 H, Eos % (Auto) 0.1, Baso % (Auto) 0.2, Absolute Neuts (auto) 9.7 H, Absolute Lymphs (auto) 0.40 L, Nucleated RBC % 0, Differential Comment SEE COMMENT, Platelet Estimate MOD DEC, RBC Morphology N CHROM, Anisocytosis RARE, Macrocytosis RARE, Sodium 131 L, Potassium 3.0 L, Chloride 95 L, Carbon Dioxide 28.0, Anion Gap 8, BUN 11, Creatinine 0.92, Estim Creat Clear Calc 81.92, Est GFR (MDRD) Af Amer 93, Est GFR (MDRD) Non-Af 77, BUN/Creatinine Ratio 12.0, Glucose 122 H, Calcium 8.6, Total Bilirubin 1.10 H, AST 65 H, ALT 101 H, Alkaline Phosphatase 79, Total Protein 7.9, Albumin 2.8 L, Globulin 5.1 H, Albumin/Globulin Ratio 0.5 L, Serum , Qual NEGATIVE, Ethyl Alcohol < 3.0 06/01/23 06:25: WBC 8.5, RBC 3.65 L, Hgb 12.0, Hct 34.3 L, MCV 94.0, MCH 32.9 H, MCHC 35.0, RDW Std Deviation 44.8 H, RDW Coeff of [place] 13.0, Plt Count 98 L, MPV 9.1, Immature Gran % (Auto) 0.600, Neut % (Auto) 81.4 H, Lymph % (Auto) 4.5 L, [place] % (Auto) 12.4 H, Eos % (Auto) 0.2, Baso % (Auto) 0.9, Absolute Neuts (auto) 6.9, Absolute Lymphs (auto) 0.38 L, Nucleated RBC % 0, Differential Comment SCANNED, Platelet Estimate SLT DEC, Sodium 132 L, Potassium 3.5, Chloride 103, Carbon Dioxide 24.0, Anion Gap 5, BUN 14, Creatinine 0.96, Estim Creat Clear Calc 78.51, Est GFR (MDRD) Af Amer 89, Est GFR (MDRD) Non-Af 74, BUN/Creatinine Ratio 14.7, Glucose 143 H, Calcium 7.7 L, Total Bilirubin 1.00, AST 74 H, ALT 89 H, Alkaline Phosphatase 74, Total Protein 6.7, Albumin 2.3 L, Globulin 4.4 H, Albumin/Globulin Ratio 0.5 L Physical Exam Narrative General: Alert, oriented HEENT: Atraumatic, normocephalic Eyes: Anicteric, normal conjunctiva, extraocular movements grossly intact Neck: Supple Respiratory: Clear to auscultation bilaterally, normal respiratory effort Cardiovascular: Regular rate and rhythm GI: Soft, nondistended, somewhat tender on left side of abdomen Extremities: No edema Musculoskeletal: Moving all extremities Neuro: No overt focal neurological deficits Skin: No rashes appreciated Psych: Cooperative Assessment & Plan Assessment/Plan (1) Pyelonephritis: (2) UTI (urinary tract infection): QUALIFIERS: Hematuria presence: without hematuria Urinary tract infection type: acute cystitis Qualified Code(s): N30.00 - Acute cystitis without hematuria (3) Desire for detoxification: (4) ETOH abuse: (5) CARLA (acute kidney injury): (6) Hepatitis C: PLAN: Plan #Acute UTI with left pyelonephritis -UA with occult blood, leuk esterase, 1+ urine bacteria -White count 11.5 with bandemia and neutrophilia -On Rocephin -Did spike temperature of 101.3 -Urine culture from ED pending, blood cultures ordered -Patient had associated left-sided flank/abdominal pain, CT abdomen/pelvis ordered which showed pyelonephritis with no stone/obstruction #ETOH abuse- desire for detox -Has been drinking for 2 years and drinks about 1 bottle of vodka a day and for the past 2 months has drank upwards of 2 bottles of vodka a day -EtOH level undetectable on presentation and cannabinoids screen positive -Patient be started on phenobarbital and other adjunctive medications: Gabap entin as needed; dicyclomine as needed; Vistaril as needed; Imodium as needed; trazodone as needed; Zofran as needed; scheduled thiamine; and schedule folic acid Monitor CIWA #Elevated liver enzymes -AST 65 and ALT 101 on presentation with AST 74 and ALT 80 9 in the AM, unclear significance, continue to trend and can pursue further work-up in the future if needed though may be associated with her alcohol use -CT abd/pelvis for unrelated reason w/ hepatomegaly with steotosis #Hx opioid use -Cont home suboxone #Increased creatinine -Last creatinine in 2021 was 0.54 with creatinine on presentation 0.92 and increased to 0.96 this a.m., unclear if this is her baseline now or for CARLA, receiving gentle hydration #Hypokalemia -Replaced -A.m. potassium 3.5 #Hx hepatitis C -Outpatient follow-up #Tobacco use -Advise cessation -Patient prescribed nicotine replacement #DVT ppx: Low risk, ambulatory Maria Elena Cespedes MD Time spent in the patient's overall evaluation,decision-making process, review of diagnostic data, adjustment of management, discussion with other providers, nursing nursing and ancillary staff involved in patient's care documentation, 40 minutes Charges/Coding Visit Charges Inpatient E&M: 73478 Subs Hosp L2
[2023-06-01] MEDS: Thiamine Hydrochloride 100 MG Tablet PO (09:00)
[2023-06-01] MEDS: Folic Acid 1 MG Tablet PO (09:00)
[2023-06-01] MEDS: Acetaminophen 325 MG Tablet 650 MG PO ×2 (09:00→18:13)
[2023-06-01] MEDS: BUPRENORPHINE HCL/NALOXONE HCL 1 EACH TAB.SUBL 2 EACH SL (10:45)
[2023-06-01 11:50] VITALS: BP 119/74; PULSE 109; RESP 16; TEMP 38.1; O2SAT 95
--- NOTE | 2023-06-01 12:27 | ADDICTION ---
This principal technical writer met with PT to conduct ASAM, MSE, AUDIT assessments and to plan for d/c. PT A+Ox4 and participated actively. All assessments completed and placed in PT's chart. PT plans to f/u with [facility] for follow-up treatment services. PT did not indicate a need for transportation post d/c from [facility].
[2023-06-01 17:50] VITALS: BP 114/72; PULSE 103; RESP 16; TEMP 37.3; O2SAT 96
[2023-06-01 21:31] VITALS: BP 118/84; PULSE 103; RESP 18; TEMP 37.1; O2SAT 97
[2023-06-01] MEDS: MELATONIN 3 MG TABLET PO (21:48)
[2023-06-01] MEDS: Ceftriaxone 1 GM/50 ML BAG IV (21:51)
[2023-06-02 02:10] VITALS: BP 143/92; PULSE 107; RESP 18; TEMP 36.9; O2SAT 97
[2023-06-02] MEDS: Phenobarbital 32.4 MG Tablet PO ×6 (02:13→21:10)
[2023-06-02] MEDS: Potassium Chloride 40 MEQ in 0.9% Normal Saline 1,000 ML 150 MEQ IV (04:53)
[2023-06-02 05:38] VITALS: BP 120/69; PULSE 103; RESP 18; TEMP 37.1; O2SAT 94
[2023-06-02] MEDS: Ketorolac 15 MG/ML Vial IV ×2 (05:48→21:27)
[2023-06-02] MEDS: 0.9% Saline Lock 10 ML Syringe IV ×3 (05:51→21:27)
[2023-06-02 06:52] LABS: Absolute Neutrophil Count 6.8 X10^3/uL (2.0-7.7); Basophil# 0.07 X10^3/uL; Basophil% 0.8 % (0-1); Eosinophil# 0.09 X10^3/uL; Hematocrit 33.8 % (37-47); Hemoglobin 11.4 g/dL (12.0-15.0); Lymphocyte % 5.8 % (19-41); Mean Corp Hgb Conc 33.7 g/dL (32-36); Mean Corpuscular Hgb 32.3 pg (27.0-32.0); Mean Corpuscular Volume 95.8 fL (81-99); Mean Platelet Vol. 9.9 fl (6.2-12.0); Monocyte# 1.07 X10^3/uL; Monocyte% 12.5 % (0-10); NRBC Flagged by Analyzer 0 % (0-5); Neutrophil # 6.78 X10^3/uL (2.7-7.7); Neutrophil % 79.1 % (47-70); POSITIVE DIFFERENTIAL YES; POSITIVE MORPHOLOGY YES; Platelet Count 103 K/mm3 (150-450); RBC Distribution Width CV 13.9 % (11.6-14.6); RBC Distribution Width SD 48.8 fl (35.1-43.9); Red Blood Count 3.53 M/mm3 (4.2-5.4); White Blood Count 8.6 K/mm3 (4.4-11.0)
[2023-06-02 06:55] LABS: Differential Indicated SCAN CRITERIA MET
[2023-06-02 07:14] LABS: Differential Comment SCANNED
[2023-06-02 07:22] LABS: ALB/GLOB Ratio 0.5 RATIO (0.9-2.4); AST(SGOT) 131 U/L (15-37); Alanine Aminotransfer ALT/SGPT 132 U/L (13-56); Albumin, Serum 2.1 g/dL (3.2-5.0); Alkaline Phosphatase 89 U/L (45-117); Anion Gap 6 (5-15); BUN 11 mg/dL (7-18); BUN/Creat Ratio 15.2 RATIO (10-20); Calcium,Total 7.9 mg/dL (8.5-10.1); Chloride 105 mmol/L (98-107); Creatinine, Serum 0.73 mg/dL (0.55-1.02); EST Glomerular Filtration Rate 101 mL/min (>60); Est Glom Filt Rate - Afr Amer 122 mL/min (>60); Estimated Creatinine Clearance 103.24 ml/min; Globulin 4.2 g/dL (2.2-4.2); Glucose 108 mg/dL (74-106); Protein, Total 6.3 g/dL (6.4-8.2); Sodium Level 133 mmol/L (136-145)
--- NOTE | 2023-06-02 07:23 | PCM.PN.HOSP ---
Reason for Visit Reason for Visit: Diagnoses Unspecified viral hepatitis C without hepatic coma (05/31/23) Alcohol abuse, uncomplicated (05/31/23) Tubulo-interstitial nephritis, not specified as acute or chronic (05/31/23) Acute kidney failure, unspecified (05/31/23) Acute cystitis without hematuria (05/31/23) Subjective Subjective Patient reporting she still having abdominal pain and still feels short of breath but feels slightly better when she is up leaning over her bed. Has a slight cough with some mucus Objective Data Objective Data Vital Signs: Vital Signs Temp Pulse Resp BP Pulse Ox O2 Del Method 98.8 F 103 H 18 120/69 94 Room Air 06/02/23 05:38 06/02/23 05:38 06/02/23 05:38 06/02/23 05:38 06/02/23 05:38 06/02/23 05:38 Oxygen Delivery Method Room Air Weight: 74.6 kg Body Mass Index (BMI) 27.3 Intake & Output: Intake and Output for Last 24 Hours 05/31/23 06/01/23 06/02/23 23:59 23:59 23:59 Intake Total 585 / 585 4070 / 4070 1820 / 1820 Balance 585 / 585 4070 / 4070 1820 / 1820 Lab / Micro Data 06/02/23 06:20 06/02/23 06:20 Labs: Laboratory Results - last 24 hr 06/02/23 06:20: WBC 8.6, RBC 3.53 L, Hgb 11.4 L, Hct 33.8 L, MCV 95.8, MCH 32.3 H, MCHC 33.7, RDW Std Deviation 48.8 H, RDW Coeff of [place] 13.9, Plt Count 103 L, MPV 9.9, Immature Gran % (Auto) 0.800, Neut % (Auto) 79.1 H, Lymph % (Auto) 5.8 L, [place] % (Auto) 12.5 H, Eos % (Auto) 1.0, Baso % (Auto) 0.8, Absolute Neuts (auto) 6.8, Absolute Lymphs (auto) 0.50 L, Nucleated RBC % 0, Differential Comment SCANNED, Sodium 133 L, Potassium 4.0, Chloride 105, Carbon Dioxide 22.0, Anion Gap 6, BUN 11, Creatinine 0.73, Estim Creat Clear Calc 103.24, Est GFR (MDRD) Af Amer 122, Est GFR (MDRD) Non-Af 101, BUN/Creatinine Ratio 15.2, Glucose 108 H, Calcium 7.9 L, Total Bilirubin 1.40 H, AST 131 H, ALT 132 H, Alkaline Phosphatase 89, Total Protein 6.3 L, Albumin 2.1 L, Globulin 4.2, Albumin/Globulin Ratio 0.5 L Micro: Microbiology 05/31/23 19:20 Urine, Clean Catch Urine Culture - Final Escherichia coli Radiography Diagnostic Testing: Radiology Impression Abdomen/Pelvis CT 06/01/23 06:22 IMPRESSION: 1. Left renal swelling with perinephric edema, suggesting pyelonephritis. No stone or hydronephrosis is seen at this time. In the right clinical setting, a stone that was causing obstruction but has recently passed might also give this appearance. 2. Hepatomegaly with steatosis. 3. IUD again noted in the endometrial cavity. Electronically Signed: Tutu Stevens MD at 8:34 EDT Reading Location ID and State: [facility] / Unknown , Service support , Physical Exam Narrative General: Alert, oriented HEENT: Atraumatic, normocephalic Eyes: Anicteric, normal conjunctiva, extraocular movements grossly intact Neck: Supple Respiratory: Clear to auscultation bilaterally, normal respiratory effort Cardiovascular: Regular rate and rhythm GI: Non distended Extremities: No edema Musculoskeletal: Moving all extremities Neuro: No overt focal neurological deficits Skin: No rashes appreciated Psych: Cooperative Assessment & Plan Assessment/Plan (1) Pyelonephritis: (2) UTI (urinary tract infection): QUALIFIERS: Hematuria presence: without hematuria Urinary tract infection type: acute cystitis Qualified Code(s): N30.00 - Acute cystitis without hematuria (3) Desire for detoxification: (4) ETOH abuse: (5) CARLA (acute kidney injury): (6) Hepatitis C: PLAN: Plan #Acute UTI with left pyelonephritis -UA with occult blood, leuk esterase, 1+ urine bacteria -White count 11.5 with bandemia and neutrophilia -On Rocephin -Did spike temperature of 101.3 -Urine culture from ED pending, blood cultures ordered -Patient had associated left-sided flank/abdominal pain, CT abdomen/pelvis ordered which showed pyelonephritis with no stone/obstruction -06/02: Leukocytosis resolved. Urine culture with E. coli sensitive to all but ampicillin, awaiting blood cultures. Patient not febrile today but did have 2 temperatures yesterday and has remained somewhat tachycardic though that may in part be d/t withdrawal. We will continue with IV antibiotics at this time. #Subjective shortness of breath -Patient not hypoxic, primarily short of breath when taking deep breaths however does have cough with some mucus, will obtain chest x-ray -Further management pending results #ETOH abuse- desire for detox -Has been drinking for 2 years and drinks about 1 bottle of vodka a day and for the past 2 months has drank upwards of 2 bottles of vodka a day -EtOH level undetectable on presentation and cannabinoids screen positive -Patient be started on phenobarbital and other adjunctive medications: Gabapentin as needed; dicyclomine as needed; Vistaril as needed; Imodium as needed; trazodone as needed; Zofran as needed; scheduled thiamine; and schedule folic acid Monitor CIWA -06/02: Continue on phenobarb detox #Elevated liver enzymes -AST 65 and ALT 101 on presentation with AST 74 and ALT 80 9 in the AM, unclear significance, continue to trend and can pursue further work-up in the future if needed though may be associated with her alcohol use -CT abd/pelvis for unrelated reason w/ hepatomegaly with steotosis -06/02: Increased today with an increase in bili, may be secondary overall to illness in conjunction with her underlying liver dysfunction, continue to monitor. We will check hepatitis panel and PT/INR for the a.m. also will change Tylenol to only for fever and not pain to minimize how often patient received this #Thrombocytopenia -Likely secondary to current illness as well as liver dysfunction, will need outpatient follow-up, has been stable since admission #Hx opioid use -Cont home suboxone #Increased creatinine -Last creatinine in 2021 was 0.54 with creatinine on presentation 0.92 and increased to 0.96 this a.m., unclear if this is her baseline now or for CARLA, receiving gentle hydration -06/02: Creatinine 0.73 today, continue current management. Due to limited options for pain patient is receiving Toradol as needed, continue monitor kidney function will resume fluids #Hypokalemia -Replaced -A.m. potassium 3.5 -06/02: Resolved, will DC her scheduled IV potassium replacement, potassium 4 today. Continue to monitor #Hyponatremia -Sodium 131 on admission and has trended up to 133, this continues to improve no further work-up necessary #Hx hepatitis C -Outpatient follow-up #Tobacco use -Advise cessation -Patient prescribed nicotine replacement #DVT ppx: Low risk, ambulatory Maria Elena Cespedes MD Time spent in the patient's overall evaluation,decision-making process, review of diagnostic data, adjustment of management, discussion with other providers, nursing nursing and ancillary staff involved in patient's care documentation, 41 minutes Charges/Coding Visit Charges Inpatient E&M: 06018 Subs Hosp L2
[2023-06-02 08:09] VITALS: O2SAT 95
[2023-06-02] MEDS: Ondansetron 8 MG Tablet PO (10:18)
[2023-06-02] MEDS: BUPRENORPHINE HCL/NALOXONE HCL 1 EACH TAB.SUBL 2 EACH SL (10:18)
[2023-06-02] MEDS: Acetaminophen 325 MG Tablet 650 MG PO ×2 (10:19→16:20)
[2023-06-02] MEDS: Gabapentin 300 MG Capsule PO ×2 (10:19→18:07)
[2023-06-02] MEDS: Folic Acid 1 MG Tablet PO (10:23)
[2023-06-02] MEDS: Thiamine Hydrochloride 100 MG Tablet PO (10:23)
--- NOTE | 2023-06-02 10:28 | RAD_ITS ---
INDICATION: SOB EXAMINATION/TECHNIQUE: X-RAY - XR Chest 2 Views COMPARISON: FINDINGS: LINES/DEVICES: None. LUNGS: No consolidation, edema or effusion. No pneumothorax. MEDIASTINUM AND CARDIOVASCULAR STRUCTURES: Cardiac silhouette not enlarged. Central airways and mediastinal contour are unremarkable. BONES AND SOFT TISSUES: Unremarkable. RAD/Chest PA and Lateral IMPRESSION: No radiographic evidence of acute cardiopulmonary disease. Electronically Signed: Jamaal Hall, at 10:53 EDT ,
[2023-06-02] MEDS: 0.9% Normal Saline 1,000 ML 75 ML IV (10:54)
[2023-06-02 10:58] VITALS: BP 120/92; PULSE 111; RESP 18; TEMP 37.8; O2SAT 95
--- NOTE | 2023-06-02 12:54 | CHAPLAIN ---
Type of Pastoral Visit _x__ Initial Visit ___ Follow-up Visit ___ On-call Visit ___ General Patient Visit ___ Spiritual Assessment ___ Family Conference ___ Bereavement ___ Rapid Response ___ Code Blue ___ Other (describe below) Pastoral Care Referral From _x__ Patient ___ Family ___ Nurse ___ Physician ___ City Solicitor ___ Engineering Geologist ___ Other (describe below) Sacrament/Intervention _x__ Active listening ___ Anointing ___ Mormonism ___ Bereavement ___ Communion _x__ Kimberly exploration ___ _x__ Life review _x__ Prayer ___ Reconciliation ___ Sacrament of Sick _x__ Supportive presence ___ Wedding ___ Other (describe below) Pastoral Comments patient is welcoming and gives life review, grief issues since of father, struggles with personalizing holiness and kimberly, anxiety over recovery efforts, and importance of being a Mom to her children; prayer and presence is welcomed and spoken of with appreciation
[2023-06-02] MEDS: hydrOXYzine PAM 25 MG Capsule 50 MG PO (14:12)
[2023-06-02 17:14] VITALS: BP 108/74; PULSE 101; RESP 18; TEMP 39.1; O2SAT 95
[2023-06-02 21:05] VITALS: BP 119/87; PULSE 103; RESP 18; TEMP 37.5; O2SAT 98
[2023-06-02] MEDS: MELATONIN 3 MG TABLET PO (21:09)
[2023-06-02] MEDS: Ceftriaxone 1 GM/50 ML BAG IV (21:10)
[2023-06-03] VITALS (10 sets, daily range): BP systolic 106–136; BP diastolic 64–82; PULSE 82–120; RESP 18–20; TEMP 37–39.4; O2SAT 95–100
[2023-06-03] MEDS: 0.9% Normal Saline 1,000 ML 75 ML IV (00:45)
[2023-06-03] MEDS: Phenobarbital 32.4 MG Tablet PO ×4 (01:59→18:07)
[2023-06-03] MEDS: Acetaminophen 325 MG Tablet 650 MG PO ×3 (02:05→18:14)
[2023-06-03 06:47] LABS: Absolute Lymphocyte Count 0.61 X10^3/uL (0.83-4.51); Absolute Neutrophil Count 6.2 X10^3/uL (2.0-7.7); Basophil# 0.04 X10^3/uL; Basophil% 0.5 % (0-1); Eosinophil# 0.08 X10^3/uL; Hematocrit 31.4 % (37-47); Hemoglobin 10.7 g/dL (12.0-15.0); Lymphocyte # 0.61 X10^3/ul (0.83-4.51); Lymphocyte % 7.4 % (19-41); Mean Corp Hgb Conc 34.1 g/dL (32-36); Mean Corpuscular Hgb 32.5 pg (27.0-32.0); Mean Corpuscular Volume 95.4 fL (81-99); Mean Platelet Vol. 9.8 fl (6.2-12.0); Monocyte# 1.25 X10^3/uL; Monocyte% 15.2 % (0-10); NRBC Flagged by Analyzer 0 % (0-5); Neutrophil # 6.15 X10^3/uL (2.7-7.7); Neutrophil % 74.4 % (47-70); POSITIVE MORPHOLOGY YES; Platelet Count 142 K/mm3 (150-450); RBC Distribution Width CV 14.4 % (11.6-14.6); RBC Distribution Width SD 50.4 fl (35.1-43.9); Red Blood Count 3.29 M/mm3 (4.2-5.4); White Blood Count 8.3 K/mm3 (4.4-11.0)
[2023-06-03 06:53] LABS: Differential Indicated SCAN CRITERIA MET
[2023-06-03 07:08] LABS: International Normalized Ratio 1.1; Prothrombin Time (Protime)PT. 14.6 SECONDS (11.7-14.9)
[2023-06-03 07:12] LABS: Differential Comment SCANNED
[2023-06-03 07:21] LABS: ALB/GLOB Ratio 0.5 RATIO (0.9-2.4); AST(SGOT) 88 U/L (15-37); Alanine Aminotransfer ALT/SGPT 119 U/L (13-56); Albumin, Serum 1.9 g/dL (3.2-5.0); Alkaline Phosphatase 83 U/L (45-117); Anion Gap 6 (5-15); BUN 9 mg/dL (7-18); Bilirubin, Direct 0.47 mg/dL (0.00-0.30); Calcium,Total 7.9 mg/dL (8.5-10.1); Chloride 104 mmol/L (98-107); Creatinine, Serum 0.75 mg/dL (0.55-1.02); EST Glomerular Filtration Rate 97 mL/min (>60); Est Glom Filt Rate - Afr Amer 117 mL/min (>60); Estimated Creatinine Clearance 100.49 ml/min; Globulin 4.1 g/dL (2.2-4.2); Glucose 90 mg/dL (74-106); Potassium 3.5 mmol/L (3.5-5.1); Sodium Level 135 mmol/L (136-145)
--- NOTE | 2023-06-03 07:44 | CT_ITS ---
HISTORY: Pyelo, spiking temps again and pain, stone vs infection, hepatitis C, ETOH abuse.. TECHNIQUE: Helically acquired images were obtained of the abdomen and pelvis before and after the intravenous administration of 100mL Isovue-300. A radiation dose optimization technique was used for this scan. 533 images. COMPARISON: 06/01/2023. FINDINGS: LOWER CHEST: Lung bases clear. BOWEL: Bowel including appendix nondilated. No focal pericolonic inflammatory change. LIVER: Fatty infiltration, heterogeneous adjacent to the falciform ligament. Enlarged. No enhancing mass. GALLBLADDER/BILIARY TREE: Moderate gallbladder wall edema. SPLEEN/PANCREAS/ADRENAL GLANDS: Homogeneous and nonenlarged. KIDNEYS: Left renal enlargement with wedge-shaped regions of diminished enhancement in the upper pole. Mild left perinephric stranding and left retroperitoneal lymphadenopathy measuring up to 1.9 cm. No nephrolithiasis, hydronephrosis, or obstructing ureteral calculus on either side. Normal enhancement of the right kidney. VESSELS: No abdominal aortic aneurysm or dissection. PELVIC ORGANS: Intrauterine device in place. Trace free fluid in the pelvis. ABDOMINAL WALL: Mild subcutaneous edema. BONES: Mild osteitis ilii condensans. CT/CT Abd/Pelvis W/WO Contrast IMPRESSION: Heterogeneous enhancement of the enlarged left kidney with perinephric stranding and mild retroperitoneal lymphadenopathy, compatible with the history of pyelonephritis. No hydronephrosis or stone. Trace free fluid in the pelvis. Gallbladder wall edema likely secondary to anasarca although acute cholecystitis could have a similar appearance. Hepatic steatosis with hepatomegaly. Electronically Signed: Shasta Falcon MD at 9:25 EDT ,
--- NOTE | 2023-06-03 07:45 | PCM.PN.HOSP ---
Reason for Visit Reason for Visit: Diagnoses Unspecified viral hepatitis C without hepatic coma (05/31/23) Alcohol abuse, uncomplicated (05/31/23) Tubulo-interstitial nephritis, not specified as acute or chronic (05/31/23) Acute kidney failure, unspecified (05/31/23) Acute cystitis without hematuria (05/31/23) Subjective Subjective Patient noted that she has an ulcer on the roof of her mouth which happened 1 time several years ago, it is painful and she is avoiding certain foods because of this. Patient having sweats and high temps overnight, still has left-sided pain and reports that she does feel somewhat better than she did yesterday however still having the left-sided pain front and back with worse pain on inspiration. She does feel her urination is burning less and her urine is clearing up however. Objective Data Objective Data Vital Signs: Vital Signs Temp Pulse Resp BP Pulse Ox O2 Del Method 98.6 F 101 H 20 H 132/72 H 99 Room Air 06/03/23 06:23 06/03/23 06:23 06/03/23 06:23 06/03/23 06:23 06/03/23 06:23 06/03/23 06:23 Oxygen Delivery Method Room Air Weight: 74.6 kg Body Mass Index (BMI) 27.3 Intake & Output: Intake and Output for Last 24 Hours 06/01/23 06/02/23 06/03/23 23:59 23:59 23:59 Intake Total 4070 / 4070 3720 / 3920 1200 / 1200 Balance 4070 / 4070 3720 / 3920 1200 / 1200 Lab / Micro Data 06/03/23 06:10 06/03/23 06:10 Labs: Laboratory Results - last 24 hr 06/03/23 06:10: WBC 8.3, RBC 3.29 L, Hgb 10.7 L, Hct 31.4 L, MCV 95.4, MCH 32.5 H, MCHC 34.1, RDW Std Deviation 50.4 H, RDW Coeff of [place] 14.4, Plt Count 142 L, MPV 9.8, Immature Gran % (Auto) 1.500 H, Neut % (Auto) 74.4 H, Lymph % (Auto) 7.4 L, [place] % (Auto) 15.2 H, Eos % (Auto) 1.0, Baso % (Auto) 0.5, Absolute Neuts (auto) 6.2, Absolute Lymphs (auto) 0.61 L, Nucleated RBC % 0, Differential Comment SCANNED, PT 14.6, INR 1.1, Sodium 135 L, Potassium 3.5, Chloride 104, Carbon Dioxide 25.0, Anion Gap 6, BUN 9, Creatinine 0.75, Estim Creat Clear Calc 100.49, Est GFR (MDRD) Af Amer 117, Est GFR (MDRD) Non-Af 97, BUN/Creatinine Ratio 12.0, Glucose 90, Calcium 7.9 L, Total Bilirubin 0.80, Direct Bilirubin 0.47 H, AST 88 H, ALT 119 H, Alkaline Phosphatase 83, Total Protein 6.0 L, Albumin 1.9 L, Globulin 4.1, Albumin/Globulin Ratio 0.5 L Micro: Microbiology 05/31/23 19:20 Urine, Clean Catch Urine Culture - Final Escherichia coli Radiography Diagnostic Testing: Radiology Impression Chest X-Ray 06/02/23 10:28 IMPRESSION: No radiographic evidence of acute cardiopulmonary disease. Electronically Signed: Jamaal Hall, at 10:53 EDT Reading Location ID and State: [id number] Tel , Service support , Physical Exam Narrative General: Alert, oriented, appears less distressed today HEENT: Atraumatic, normocephalic, does have shallow ulcer 0.25 x 0.5 inches on the roof of mouth on left side Eyes: Anicteric, normal conjunctiva, extraocular movements grossly intact Neck: Supple Respiratory: Clear to auscultation bilaterally, normal respiratory effort Cardiovascular: Regular rate and rhythm GI: Soft, no rebound, guarding, rigidity, slight tenderness on the left side, no tenderness on right side Extremities: No edema Musculoskeletal: Moving all extremities Neuro: No overt focal neurological deficits Skin: Ulcer in mouth as above Psych: Cooperative Assessment & Plan Assessment/Plan (1) Pyelonephritis: (2) UTI (urinary tract infection): QUALIFIERS: Hematuria presence: without hematuria Urinary tract infection type: acute cystitis Qualified Code(s): N30.00 - Acute cystitis without hematuria (3) Desire for detoxification: (4) ETOH abuse: (5) CARLA (acute kidney injury): (6) Hepatitis C: PLAN: Plan #Fever and chills -Patient initially febrile when she presented and had urinary tract infection was found to pyelonephritis, she was placed on Rocephin and urine culture grew E. coli that was sensitive to that. Fever improved however overnight she began spiking temperatures again with Tmax of 102.7 and was tachycardic. ESR, CRP, Pro-Marco obtained and ESR 65, CRP was 170 and procalcitonin is 1.31 -Due to original improvement and then subsequent worsening with above labs as well repeat blood cultures obtained, broad-spectrum antibiotics started, and abdomen rescan to assess for perinephric abscess. -CT abdomen pelvis with heterogenous enhancement of left kidney with perinephric stranding and mild retroperitoneal adenopathy compatible with Russell with no hydronephrosis or stone. There is trace free fluid in the pelvis and gallbladder wall edema which was presumed to be secondary to anasarca but acute cholecystitis could have similar appearance. Patient did have transient increase in total bilirubin 06/02 with slight bump in AST and ALT that have all since downtrended and patient does not nor has complained of right upper quadrant pain -CT abdomen and pelvis was obtained with and without IV contrast in part for expedition of exam due to the spiking high fevers, may need oral contrast and repeat scan pending clinical progress -Also of note, may be unrelated, but patient developed a shallow ulcer on the roof of her mouth overnight -We will consult infectious disease, appreciate input #Acute UTI with left pyelonephritis -UA with occult blood, leuk esterase, 1+ urine bacteria -White count 11.5 with bandemia and neutrophilia -On Rocephin -Did spike temperature of 101.3 -Urine culture from ED pending, blood cultures ordered -Patient had associated left-sided flank/abdominal pain, CT abdomen/pelvis ordered which showed pyelonephritis with no stone/obstruction -06/02: Leukocytosis resolved. Urine culture with E. coli sensitive to all but ampicillin, awaiting blood cultures. Patient not febrile today but did have 2 temperatures yesterday and has remained somewhat tachycardic though that may in part be d/t withdrawal. We will continue with IV antibiotics at this time. -06/03: As above #Subjective shortness of breath -Patient not hypoxic, primarily short of breath when taking deep breaths however does have cough with some mucus, will obtain chest x-ray -Further management pending results -06/03: Chest x-ray unrevealing, patient reports slightly better today and improves as the pain improves #ETOH abuse- desire for detox -Has been drinking for 2 years and drinks about 1 bottle of vodka a day and for the past 2 months has drank upwards of 2 bottles of vodka a day -EtOH level undetectable on presentation and cannabinoids screen positive -Patient be started on phenobarbital and other adjunctive medications: Gabapentin as needed; dicyclomine as needed; Vistaril as needed; Imodium as needed; trazodone as needed; Zofran as needed; scheduled thiamine; and schedule folic acid Monitor CIWA -06/02: Continue on phenobarb detox #Elevated liver enzymes -AST 65 and ALT 101 on presentation with AST 74 and ALT 80 9 in the AM, unclear significance, continue to trend and can pursue further work-up in the future if needed though may be associated with her alcohol use -CT abd/pelvis for unrelated reason w/ hepatomegaly with steotosis -06/02: Increased today with an increase in bili, may be secondary overall to illness in conjunction with her underlying liver dysfunction, continue to monitor. We will check hepatitis panel and PT/INR for the a.m. also will change Tylenol to only for fever and not pain to minimize how often patient received this -06/03: LFTs and bili down trended today, gallbladder did have some edema which was nonspecific and patient has no pain in that area though given spike in temperatures with elevated inflammatory markers if this is not improving may need to explore this as a possible contributor #Thrombocytopenia -Likely secondary to current illness as well as liver dysfunction, will need outpatient follow-up, has been stable since admission -06/03: Improving #Hx opioid use -Cont home suboxone #Increased creatinine -Last creatinine in 2021 was 0.54 with creatinine on presentation 0.92 and increased to 0.96 this a.m., unclear if this is her baseline now or for CARLA, receiving gentle hydration -06/02: Creatinine 0.73 today, continue current management. Due to limited options for pain patient is receiving Toradol as needed, continue monitor kidney function will resume fluids -06/03: Creatinine stable #Hypokalemia -Replaced -A.m. potassium 3.5 -06/02: Resolved, will DC her scheduled IV potassium replacement, potassium 4 today. Continue to monitor #Hyponatremia -Sodium 131 on admission and has trended up to 133, this continues to improve no further work-up necessary -06/03: Improving #Hx hepatitis C -Outpatient follow-up #Tobacco use -Advise cessation -Patient prescribed nicotine replacement #DVT ppx: Low risk, ambulatory Maria Elena Cespedes MD Time spent in the patient's overall evaluation,decision-making process, review of diagnostic data, adjustment of management, discussion with other providers, nursing nursing and ancillary staff involved in patient's care documentation, 53 minutes Charges/Coding Visit Charges Inpatient E&M: 18076 Subs Hosp L3
[2023-06-03 07:56] LABS: Erythrocyte Sedimentation Rate 65 mm/hr (0-30)
[2023-06-03 08:19] LABS: Procalcitonin 1.31 ng/mL (0.00-0.09)
[2023-06-03 09:05] LABS: Lactic Acid 1.2 mmol/L (0.4-1.9)
[2023-06-03] MEDS: Ondansetron 8 MG Tablet PO (09:32)
[2023-06-03] MEDS: Thiamine Hydrochloride 100 MG Tablet PO (09:33)
[2023-06-03] MEDS: Folic Acid 1 MG Tablet PO (09:33)
[2023-06-03] MEDS: BUPRENORPHINE HCL/NALOXONE HCL 1 EACH TAB.SUBL 2 EACH SL (09:54)
--- NOTE | 2023-06-03 10:52 | PCM.RX.CS ---
Consult Antibiotic Management Pharmacy has been consulted to manage selected antiobiotic: Vancomycin Type of Intervention Type of Consult: New start Suspected Infection Suspected Infection: Other (UNKNOWN/PYELO/UTI) Prior Doses of Antibiotics Prior Doses of Antibiotics Received/Current Regimen: 2000 MG LOADING DOSE GIVEN 06/03/23 @ 1025 PT CURRENTLY ON ZOSYN 3.375 G Q8H WHICH STARTED TODAY, PREVIOUSLY ON CEFTRIAXONE Labs Labs: Sodium 135 mmol/L (136-145) L 06/03/23 06:10 Potassium 3.5 mmol/L (3.5-5.1) 06/03/23 06:10 Chloride 104 mmol/L (98-107) 06/03/23 06:10 Carbon Dioxide 25.0 mmol/L (21.0-32.0) 06/03/23 06:10 Anion Gap 6 (5-15) 06/03/23 06:10 BUN 9 mg/dL (7-18) 06/03/23 06:10 Creatinine 0.75 mg/dL (0.55-1.02) 06/03/23 06:10 Est GFR (MDRD) Af Amer 117 mL/min (>60) 06/03/23 06:10 Est GFR (MDRD) Non-Af 97 mL/min (>60) 06/03/23 06:10 BUN/Creatinine Ratio 12.0 RATIO (10-20) 06/03/23 06:10 Glucose 90 mg/dL (74-106) 06/03/23 06:10 Microbiology Microbiology: Microbiology 05/31/23 19:20 Urine, Clean Catch Urine Culture - Final Escherichia coli Dosing Weight Weight used for dosin.6 kg Goal Trough Goal Trough: 15-20 mcg/mL Pharmacy Plan for Drug Dosing Pharmacy Plan for Drug Dosing: LOADING DOSE OF 2000 MG GIVEN 06/03/23 SUBSEQUENT DOSING 1000 MG Q8H BASED ON WEIGHT AND RENAL FUNCTION PLAN FOR TROUGH BEFORE 4TH DOSE Pharmacy Service will continue to monitor and adjust dosing as required. Follow-Up Labs Follow-Up Labs: Trough: Vancomycin Date/Time Labs Ordered Labs to be done on [date and time ordered]: 06/04/23 @ 1030 VANCOMYCIN TROUGH
--- NOTE | 2023-06-03 13:11 | PCM.CONS.GEN ---
Assessment & Plan Assessment/Plan (1) Pyelonephritis: PLAN: Ecoli pyelonephritis - improving. Ceftriaxone was effective against her ecoli, repeat CT shows no stone/abscess/hydro, cxs are being re-sent. It is possible new fever was related to etoh withdrawal (did also have some mild increases in BP around the same time which would not be consistent with uncontrolled infection). Will stop vanc, will cont zosyn. If no new organisms seen over next few days and fever does not return, plan would be for her to complete abx course with keflex 500mg tid with stop date 06/10/23. Will need outpt followup for hep C eval/treatment. Will follow, thank you (2) ETOH abuse: HPI Consult Data Date of Consult: 06/03/23 HPI Narrative Reason for Consultation: pyelo, fever HPI Narrative: TRES MERIDA, is a 27 F with h/o etoh abuse and hep C, presented 05/31 for detox. Reports about a week prior of dysuria, progressive L flank and LLQ pain associated with fever, chills. Admitted here, put on ceftriaxone, feeling better, but developed new fever to 102.3. Cxs sent, changed to vanc/zosyn. No fever since then. Did have some shakes and mild hallucinations here. Full ROS performed and neg except as noted above. Last drink was 05/30. [facility] Medical History History of drug use History of hepatitis C History of depression Multiparous Opioid use Tobacco use Home Medications buprenorphine 8 mg-naloxone 2 mg sublingual tablet 2 tab sublingual DAILY HX OPIOID ABUSE 06/01/23 [History Last Taken 05/31/23] Allergy/AdvReac Type Severity Reaction Status Date / Time No Known Allergies Allergy Verified 05/31/23 18:50 Family History Mother Diabetes Hypertension Thyroid disorder Surgical History no surgical history Social History Smoking Status: Current every day smoker tobacco type: cigarettes alcohol intake: current alcohol intake frequency: a few times a week substance use type: marijuana Physical Exam Const alert, oriented x3 and no apparent distress General Appearance: cooperative HEENT normocephalic and head/scalp atraumatic Eyes PERRL and EOMs intact bilaterally Neck supple and No nodes Resp normal air movement and clear to auscultation bilaterally Cardio regular rate and regular rhythm GI soft to palpation, non-tender and non-distended GI Narrative: no flank pain Extremity General Extremity: Negative for edema Skin no rashes or lesions noted Neuro CN's II-XII intact bilaterally Lab / Micro Data Attestation: I reviewed the patient's lab results. 06/03/23 06:10 06/03/23 06:10 Labs: Laboratory Results - last 24 hr 06/03/23 06:10: WBC 8.3, RBC 3.29 L, Hgb 10.7 L, Hct 31.4 L, MCV 95.4, MCH 32.5 H, MCHC 34.1, RDW Std Deviation 50.4 H, RDW Coeff of [place] 14.4, Plt Count 142 L, MPV 9.8, Immature Gran % (Auto) 1.500 H, Neut % (Auto) 74.4 H, Lymph % (Auto) 7.4 L, [place] % (Auto) 15.2 H, Eos % (Auto) 1.0, Baso % (Auto) 0.5, Absolute Neuts (auto) 6.2, Absolute Lymphs (auto) 0.61 L, Nucleated RBC % 0, Differential Comment SCANNED, ESR 65 H, PT 14.6, INR 1.1, Sodium 135 L, Potassium 3.5, Chloride 104, Carbon Dioxide 25.0, Anion Gap 6, BUN 9, Creatinine 0.75, Estim Creat Clear Calc 100.49, Est GFR (MDRD) Af Amer 117, Est GFR (MDRD) Non-Af 97, BUN/Creatinine Ratio 12.0, Glucose 90, Calcium 7.9 L, Total Bilirubin 0.80, Direct Bilirubin 0.47 H, AST 88 H, ALT 119 H, Alkaline Phosphatase 83, C-React Prot Ext Range 170.00 H, Total Protein 6.0 L, Albumin 1.9 L, Globulin 4.1, Albumin/Globulin Ratio 0.5 L, Procalcitonin 1.31 H 06/03/23 08:17: Lactic Acid 1.2 Micro: Microbiology 06/01/23 09:18 Blood Culture (Wb) - Anticubital Left Blood Culture - Preliminary No growth in 48 hours. 06/01/23 09:25 Blood Culture (Wb) - Anticubital Right Blood Culture - Preliminary No growth in 48 hours. Radiology Impression Abdomen/Pelvis CT 06/03/23 07:44 IMPRESSION: Heterogeneous enhancement of the enlarged left kidney with perinephric stranding and mild retroperitoneal lymphadenopathy, compatible with the history of pyelonephritis. No hydronephrosis or stone. Trace free fluid in the pelvis. Gallbladder wall edema likely secondary to anasarca although acute cholecystitis could have a similar appearance. Hepatic steatosis with hepatomegaly. Electronically Signed: Shasta Falcon MD at 9:25 EDT ,
--- NOTE | 2023-06-03 17:23 | NURSING ---
Pt was asking if she was going to be getting to leave today ot not. Per Dr. Cespedes she will need to stay another not and see how she is in am. Pt aware and was asking if we could call her and make him aware. This RN tried to call him and got no answer and his VM was full.
[2023-06-03] MEDS: Ketorolac 15 MG/ML Vial IV (21:22)
[2023-06-03] MEDS: MELATONIN 3 MG TABLET PO (21:24)
[2023-06-04 00:53] VITALS: BP 118/82; PULSE 78; RESP 18; TEMP 36.8; O2SAT 99
[2023-06-04] MEDS: Phenobarbital 32.4 MG Tablet PO ×2 (00:55→05:00)
[2023-06-04] MEDS: 0.9% Saline Lock 10 ML Syringe IV (00:57)
[2023-06-04 04:53] VITALS: BP 136/84; PULSE 106; RESP 18; TEMP 37.3; O2SAT 96
[2023-06-04 06:53] LABS: Absolute Lymphocyte Count 0.67 X10^3/uL (0.83-4.51); Absolute Neutrophil Count 9.1 X10^3/uL (2.0-7.7); Basophil# 0.08 X10^3/uL; Basophil% 0.7 % (0-1); Eosinophils% 0.9 % (0-5); Hematocrit 35.3 % (37-47); Hemoglobin 12.3 g/dL (12.0-15.0); Lymphocyte # 0.67 X10^3/ul (0.83-4.51); Lymphocyte % 5.7 % (19-41); Mean Corp Hgb Conc 34.8 g/dL (32-36); Mean Corpuscular Hgb 32.1 pg (27.0-32.0); Mean Corpuscular Volume 92.2 fL (81-99); Mean Platelet Vol. 9.4 fl (6.2-12.0); Monocyte# 1.51 X10^3/uL; Monocyte% 12.9 % (0-10); NRBC Flagged by Analyzer 0 % (0-5); Neutrophil # 9.14 X10^3/uL (2.7-7.7); Neutrophil % 78.1 % (47-70); POSITIVE DIFFERENTIAL YES; Platelet Count 244 K/mm3 (150-450); RBC Distribution Width SD 47.6 fl (35.1-43.9); Red Blood Count 3.83 M/mm3 (4.2-5.4); White Blood Count 11.7 K/mm3 (4.4-11.0)
[2023-06-04 07:19] LABS: Differential Indicated SCAN CRITERIA MET
[2023-06-04 07:20] LABS: Differential Comment SCANNED
[2023-06-04 07:34] LABS: ALB/GLOB Ratio 0.5 RATIO (0.9-2.4); AST(SGOT) 56 U/L (15-37); Alanine Aminotransfer ALT/SGPT 112 U/L (13-56); Albumin, Serum 2.4 g/dL (3.2-5.0); Alkaline Phosphatase 95 U/L (45-117); Anion Gap 6 (5-15); BUN 8 mg/dL (7-18); BUN/Creat Ratio 10.7 RATIO (10-20); Calcium,Total 8.4 mg/dL (8.5-10.1); Chloride 98 mmol/L (98-107); Creatinine, Serum 0.75 mg/dL (0.55-1.02); EST Glomerular Filtration Rate 97 mL/min (>60); Est Glom Filt Rate - Afr Amer 118 mL/min (>60); Estimated Creatinine Clearance 100.49 ml/min; Globulin 4.7 g/dL (2.2-4.2); Glucose 106 mg/dL (74-106); Protein, Total 7.1 g/dL (6.4-8.2); Sodium Level 133 mmol/L (136-145)
--- NOTE | 2023-06-04 07:39 | NURSING ---
Called and left message for to give update at patient's request. did not answer the phone. Main [facility] number given for him to return call.
--- NOTE | 2023-06-04 07:54 | PCM.PN.HOSP ---
Reason for Visit Reason for Visit: Diagnoses Unspecified viral hepatitis C without hepatic coma (05/31/23) Alcohol abuse, uncomplicated (05/31/23) Tubulo-interstitial nephritis, not specified as acute or chronic (05/31/23) Acute kidney failure, unspecified (05/31/23) Acute cystitis without hematuria (05/31/23) Objective Data Objective Data Vital Signs: Vital Signs Temp Pulse Resp BP Pulse Ox O2 Del Method 99.2 F H 106 H 18 136/84 H 96 Room Air 06/04/23 04:53 06/04/23 04:53 06/04/23 04:53 06/04/23 04:53 06/04/23 04:53 06/04/23 04:53 Oxygen Delivery Method Room Air Weight: 74.6 kg Body Mass Index (BMI) 27.3 Intake & Output: Intake and Output for Last 24 Hours 06/02/23 06/03/23 06/04/23 23:59 23:59 23:59 Intake Total 3720 / 3920 2477.5 / 2477.5 550 / 550 Balance 3720 / 3920 2477.5 / 2477.5 550 / 550 Lab / Micro Data 06/04/23 06:15 06/04/23 06:15 Labs: Laboratory Results - last 24 hr 06/03/23 06:10: ESR 65 H, C-React Prot Ext Range 170.00 H, Procalcitonin 1.31 H 06/03/23 08:17: Lactic Acid 1.2 06/04/23 06:15: WBC 11.7 H, RBC 3.83 L, Hgb 12.3, Hct 35.3 L, MCV 92.2, MCH 32.1 H, MCHC 34.8, RDW Std Deviation 47.6 H, RDW Coeff of [place] 14.0, Plt Count 244, MPV 9.4, Immature Gran % (Auto) 1.700 H, Neut % (Auto) 78.1 H, Lymph % (Auto) 5.7 L, [place] % (Auto) 12.9 H, Eos % (Auto) 0.9, Baso % (Auto) 0.7, Absolute Neuts (auto) 9.1 H, Absolute Lymphs (auto) 0.67 L, Nucleated RBC % 0, Differential Comment SCANNED, Diff Path Review May foll, Sodium 133 L, Potassium 3.0 L, Chloride 98, Carbon Dioxide 29.0, Anion Gap 6, BUN 8, Creatinine 0.75, Estim Creat Clear Calc 100.49, Est GFR (MDRD) Af Amer 118, Est GFR (MDRD) Non-Af 97, BUN/Creatinine Ratio 10.7, Glucose 106, Calcium 8.4 L, Total Bilirubin 0.90, AST 56 H, ALT 112 H, Alkaline Phosphatase 95, C-React Prot Ext Range 210.00 H, Total Protein 7.1, Albumin 2.4 L, Globulin 4.7 H, Albumin/Globulin Ratio 0.5 L Micro: Microbiology 06/01/23 09:18 Blood Culture (Wb) - Anticubital Left Blood Culture - Preliminary No growth in 48 hours. 06/01/23 09:25 Blood Culture (Wb) - Anticubital Right Blood Culture - Preliminary No growth in 48 hours. 05/31/23 19:20 Urine, Clean Catch Urine Culture - Final Escherichia coli Radiography Diagnostic Testing: Radiology Impression Abdomen/Pelvis CT 06/03/23 07:44 IMPRESSION: Heterogeneous enhancement of the enlarged left kidney with perinephric stranding and mild retroperitoneal lymphadenopathy, compatible with the history of pyelonephritis. No hydronephrosis or stone. Trace free fluid in the pelvis. Gallbladder wall edema likely secondary to anasarca although acute cholecystitis could have a similar appearance. Hepatic steatosis with hepatomegaly. Electronically Signed: Shasta Falcon MD at 9:25 EDT Reading Location ID and State: [address] [place] [address] Tel , Service support , Assessment & Plan Assessment/Plan (1) Pyelonephritis: (2) UTI (urinary tract infection): QUALIFIERS: Hematuria presence: without hematuria Urinary tract infection type: acute cystitis Qualified Code(s): N30.00 - Acute cystitis without hematuria (3) Desire for detoxification: (4) ETOH abuse: (5) CARLA (acute kidney injury): (6) Hepatitis C: PLAN: Plan #Fever and chills -Patient initially febrile when she presented and had urinary tract infection was found to pyelonephritis, she was placed on Rocephin and urine culture grew E. coli that was sensitive to that. Fever improved however overnight she began spiking temperatures again with Tmax of 102.7 and was tachycardic. ESR, CRP, Pro-Marco obtained and ESR 65, CRP was 170 and procalcitonin is 1.31 -Due to original improvement and then subsequent worsening with above labs as well repeat blood cultures obtained, broad-spectrum antibiotics started, and abdomen rescan to assess for perinephric abscess. -CT abdomen pelvis with heterogenous enhancement of left kidney with perinephric stranding and mild retroperitoneal adenopathy compatible with Russell with no hydronephrosis or stone. There is trace free fluid in the pelvis and gallbladder wall edema which was presumed to be secondary to anasarca but acute cholecystitis could have similar appearance. Patient did have transient increase in total bilirubin 06/02 with slight bump in AST and ALT that have all since downtrended and patient does not nor has complained of right upper quadrant pain -CT abdomen and pelvis was obtained with and without IV contrast in part for expedition of exam due to the spiking high fevers, may need oral contrast and repeat scan pending clinical progress -Also of note, may be unrelated, but patient developed a shallow ulcer on the roof of her mouth overnight -We will consult infectious disease, appreciate input -06/04: Infectious disease consulted, they felt no fever was possibly related to EtOH withdrawal so vancomycin was stopped and Zosyn was continued. If cultures no growth over next several days and fever does not return plan would be to complete a course of Keflex with stop date 06/10/2023 and advise she follow-up outpatient for hep C eval/treatment. CRP went up today as did white blood cell count and left shift and patient febrile yesterday evening. Awaiting cultures, will see vitally and symptomatically how patient is doing throughout the day and also check HIV and syphilis as well as awaiting hepatitis panel. CT did not show any new perinephric or abdominal abscesses, there was some gallbladder wall edema however patient has no pain whatsoever in that area and liver functions improving. No stone seen on CT scan and yesterday patient was symptomatically improving. Continue to monitor #Acute UTI with left pyelonephritis -UA with occult blood, leuk esterase, 1+ urine bacteria -White count 11.5 with bandemia and neutrophilia -On Rocephin -Did spike temperature of 101.3 -Urine culture from ED pending, blood cultures ordered -Patient had associated left-sided flank/abdominal pain, CT abdomen/pelvis ordered which showed pyelonephritis with no stone/obstruction -06/02: Leukocytosis resolved. Urine culture with E. coli sensitive to all but ampicillin, awaiting blood cultures. Patient not febrile today but did have 2 temperatures yesterday and has remained somewhat tachycardic though that may in part be d/t withdrawal. We will continue with IV antibiotics at this time. -06/03: As above -06/04: Repeat cultures pending, patient on Zosyn #Subjective shortness of breath -Patient not hypoxic, primarily short of breath when taking deep breaths however does have cough with some mucus, will obtain chest x-ray -Further management pending results -06/03: Chest x-ray unrevealing, patient reports slightly better today and improves as the pain improves -06/04: Has improved with improvement in abdominal pain #ETOH abuse- desire for detox -Has been drinking for 2 years and drinks about 1 bottle of vodka a day and for the past 2 months has drank upwards of 2 bottles of vodka a day -EtOH level undetectable on presentation and cannabinoids screen positive -Patient be started on phenobarbital and other adjunctive medications: Gabapentin as needed; dicyclomine as needed; Vistaril as needed; Imodium as needed; trazodone as needed; Zofran as needed; scheduled thiamine; and schedule folic acid Monitor CIWA -06/02: Continue on phenobarb detox -06/04: Phenobarb detox will be finished tomorrow, pending how patient is doing medically will depend to DC versus continued need for hospitalization #Elevated liver enzymes -AST 65 and ALT 101 on presentation with AST 74 and ALT 80 9 in the AM, unclear significance, continue to trend and can pursue further work-up in the future if needed though may be associated with her alcohol use -CT abd/pelvis for unrelated reason w/ hepatomegaly with steotosis -06/02: Increased today with an increase in bili, may be secondary overall to illness in conjunction with her underlying liver dysfunction, continue to monitor. We will check hepatitis panel and PT/INR for the a.m. also will change Tylenol to only for fever and not pain to minimize how often patient received this -06/03: LFTs and bili down trended today, gallbladder did have some edema which was nonspecific and patient has no pain in that area though given spike in temperatures with elevated inflammatory markers if this is not improving may need to explore this as a possible contributor date downtrending, hepatitis panel pending #Thrombocytopenia -Likely secondary to current illness as well as liver dysfunction, will need outpatient follow-up, has been stable since admission -06/03: Improving -06/04: Resolved #Hx opioid use -Cont home suboxone #Increased creatinine -Last creatinine in 2021 was 0.54 with creatinine on presentation 0.92 and increased to 0.96 this a.m., unclear if this is her baseline now or for CARLA, receiving gentle hydration -06/02: Creatinine 0.73 today, continue current management. Due to limited options for pain patient is receiving Toradol as needed, continue monitor kidney function will resume fluids -06/03: Creatinine stable -06/04: Creatinine is remained stable over several days #Hypokalemia -Replaced -A.m. potassium 3.5 -06/02: Resolved, will DC her scheduled IV potassium replacement, potassium 4 today. Continue to monitor -06/04: Was low again today, will replace #Hyponatremia -Sodium 131 on admission and has trended up to 133, this continues to improve no further work-up necessary -06/03: Improving -06/04: Stable with slight decrease to 1 35-1 33 however within the margin of error, continue present management #Hx hepatitis C -Outpatient follow-up -06/04: Hepatitis panel pending #Tobacco use -Advise cessation -Patient prescribed nicotine replacement #DVT ppx: Low risk, ambulatory Maria Elena Cespedes MD Time spent in the patient's overall evaluation,decision-making process, review of diagnostic data, adjustment of management, discussion with other providers, nursing nursing and ancillary staff involved in patient's care documentation, 53 minutes Charges/Coding Visit Charges Inpatient E&M: 77666 Subs Hosp L3
[2023-06-04 08:35] VITALS: BP 130/82; PULSE 97; RESP 18; TEMP 37.1; O2SAT 99
[2023-06-04] MEDS: Potassium Chloride Oral Tablet 20 MEQ 60 MEQ PO (08:37)
[2023-06-04] MEDS: Folic Acid 1 MG Tablet PO (08:37)
[2023-06-04] MEDS: Thiamine Hydrochloride 100 MG Tablet PO (08:37)
[2023-06-04] MEDS: BUPRENORPHINE HCL/NALOXONE HCL 1 EACH TAB.SUBL 2 EACH SL (08:37)
[2023-06-04 09:13] LABS: HIV - WCH Non-Reactive (Nonreactive); Syphilis Antibodies Non-reactive
--- NOTE | 2023-06-04 11:15 | ADDICTION ---
This television writer met with client re: outreach. Client has completed d/c plans with [facility] staff. Client reports she plans to continue treatment at [facility] in [place]. Client reports DOC is ETOH with a h/o Opioid Dependency (she is currently prescribed Buprenorphine). This television writer provided information re: MAT program at [facility]. Education provided re: Sublocade medication. Additional resources provided to client.
--- NOTE | 2023-06-04 11:20 | CASEMGMT ---
Provided pt with a local healthcare directory pamphlet. Pt appreciative and denies further needs.
--- NOTE | 2023-06-04 11:35 | DS.PCM_ITS ---
Providers Date of Admission: 05/31/23 Date of Discharge: 06/04/23 Primary Care Physician: Rosa Primary Care Phys Consultations 06/03/23 10:42 Consult: Infectious Disease Routine Consulting Provider: Michel Hodge Reason for Consult: pansensitive ecoli w/ pyelo, spiking high temps despite treatment, CRP 170 EMERGENT Consult: No MD Notified: Yes Date Notified: 06/03/23 Time Notified: 10:42 Method of Notification: Answering Service Comments:: mouth ulcer as well, hx hep c Reason For Visit: DESIRE FOR ALCOHOL DETOXIFICATION Diagnosis Discharge Diagnosis (1) Pyelonephritis: Status: Acute Code(s): N12 - Tubulo-interstitial nephritis, not specified as acute or chronic (2) UTI (urinary tract infection): Status: Acute Code(s): N39.0 - Urinary tract infection, site not specified Qualifiers: Urinary tract infection type: acute cystitis Hematuria presence: without hematuria Qualified Code(s): N30.00 - Acute cystitis without hematuria (3) Desire for detoxification: Status: Acute (4) ETOH abuse: Status: Acute Code(s): F10.10 - Alcohol abuse, uncomplicated (5) Hepatitis C: Status: Acute Code(s): B19.20 - Unspecified viral hepatitis C without hepatic coma Plan #Acute UTI with left pyelonephritis 2/2 ecoli #ETOH abuse s/p detox #Elevated liver enzymes- improving #Thrombocytopenia- resolved #Hx opioid use- on MAT #Hypokalemia #Hyponatremia #Hx hepatitis C #Tobacco use Medications at Discharge Home Medications buprenorphine 8 mg-naloxone 2 mg sublingual tablet 2 tab sublingual DAILY HX OPIOID ABUSE 06/01/23 cephalexin 500 mg capsule 500 mg PO TID 7 days #21 caps 06/04/23 Hospital Course Summary of Care Provided Minutes Spent on Discharge: 45 Hospital Course: Patient is a 27-year-old female with history of hepatitis C, opioid use on MAT, alcohol use who presented to [facility] 06/04/2023 for left-sided abdominal pain and also desire for detox from alcohol. She had been drinking roughly 1 bottle of vodka daily for the past 2 years and reported she would like to stop so she was started on phenobarbital detox and did well on this with plans for outpatient follow-up. In regards to her abdominal pain she was febrile with leukocytosis and also reported pain on urination and was found to have a UTI, she had a CT scan of her abdomen which showed pyelonephritis with no stone or obstruction. However urine culture grew E. coli sensitive to Rocephin but she continued to report significant left-sided abdominal pain. She spiked more temperatures overnight on 06/02 and had elevated ESR and CRP so she had r epeat blood cultures (initial blood cultures no growth to date) and antibiotics broadened to Zosyn and vancomycin and ID consulted after CT repeat with contrast redemonstrated pyelonephritis with no perinephric abscess or abdominal abscesses. There was some gallbladder wall edema but no pain whatsoever in that area and liver function was improving so cholecystitis was not pursued. Infectious disease felt fever may be from alcohol detox and given her UA with E. coli sensitive to Rocephin and CT with no stone/abscess/hydro was recommended to DC vancomycin, follow cultures, and if doing well with no new organisms or fever plan for completing course of Keflex 500 mg 3 times a day with stop date 06/10/2023. Patient had 1 more fever around 5 PM on 06/03 and then had no further febrile episodes and symptoms completely resolved by morning and patient was no longer tachycardic and had no episodes of hypotension. Did have bump in CRP and discussed this with patient and recommended staying for culture results tomorrow given the inflammatory markers. Patient very tearful and would like to go home, understands the risks of going home and warning signs and symptoms. Given that she has not had fever since yesterday and clinically is doing very well with no complaints and completely benign exam do not feel it is unreasonable to discharge patient home with antibiotics, advised that I would call her with culture results at [phone] if cultures were positive and patient adamant that she will return to the ED if any symptoms or fever recurs. She has no complaints on day of discharge aside from being homesick. Discussed that with her phenobarb taper approaching its end we can take her out of the detox protocol the patient refused and said she needed to go home and see her family. Again with her being clinically significantly improved with no fever and strong desire to go home with willingness to come back if any problems and also good support system at home feel it is reasonable to discharge her and notify her tomorrow if culture results positive/any medication adjustments need to be made. Discharge instructions as follows: DISCHARGE INSTRUCTIONS PLEASE READ *Please take this with you to your next doctors appointment* -You will be discharged on Keflex 500 mg 3 times a day through 06/10/2023, you will take a dose this afternoon and at bedtime and then 3 times daily thereafter. It is recommended that you have repeat CBC, CMP, CRP to check the inflammation in your body through a physician's office in 2 to 3 days after disc harge. You can call the office of any physician or establish with to obtain order for blood work. -Your prescription was sent to the [facility] in [place] per your preference -If you have any return of left-sided pain, burning on urination, any fevers, any other concerning signs or symptoms at all please proceed immediately to the emergency department. -Please follow-up with Dr. Hodge with infectious disease upon discharge for hepatitis C. Please call their office to schedule hospital follow-up appointment upon discharge. Alternatively you can follow with the physician you have previously seen if applicable. - It is strongly advised that you refrain from any alcohol use. Please call [facility] located at [address] [place] [phone] (ph [phone]) if you are interested in further resources -Please call your primary care provider's office upon discharge to schedule [facility]. -If you do not have a primary care physician of list of local primary care physicians can be provided for you upon discharge. Please ask for this list prior to discharge -For any concerning signs or symptoms please call 911 or proceed to the nearest emergency department Physical Exam Narrative General: Alert, oriented, no apparent distress HEENT: Atraumatic, normocephalic Eyes: Anicteric, normal conjunctiva, extraocular movements grossly intact Neck: Supple Respiratory: Clear to auscultation bilaterally, normal respiratory effort Cardiovascular: Regular rate and rhythm GI: Soft, nontender, nondistended Extremities: No edema Musculoskeletal: Moving all extremities Neuro: No overt focal neurological deficits Skin: No rashes appreciated Psych: Cooperative Weight / BMI Weight Weight: 74.6 kg Body Mass Index (BMI) 27.3 ABG / Lab / Microbiology Data 06/04/23 06:15 06/04/23 06:15 Laboratory: Laboratory Results - last 24 hr 06/03/23 06:10: Syphilis Total Ab Non-reactive, HIV 1&2 Antibody Non-Reactive 06/04/23 06:15: WBC 11.7 H, RBC 3.83 L, Hgb 12.3, Hct 35.3 L, MCV 92.2, MCH 32.1 H, MCHC 34.8, RDW Std Deviation 47.6 H, RDW Coeff of [place] 14.0, Plt Count 244, MPV 9.4, Immature Gran % (Auto) 1.700 H, Neut % (Auto) 78.1 H, Lymph % (Auto) 5.7 L, [place] % (Auto) 12.9 H, Eos % (Auto) 0.9, Baso % (Auto) 0.7, Absolute Neuts (auto) 9.1 H, Absolute Lymphs (auto) 0.67 L, Nucleated RBC % 0, Differential Comment SCANNED, Diff Path Review March, Sodium 133 L, Potassium 3.0 L, Chloride 98, Carbon Dioxide 29.0, Anion Gap 6, BUN 8, Creatinine 0.75, Estim Creat Clear Calc 100.49, Est GFR (MDRD) Af Amer 118, Est GFR (MDRD) Non-Af 97, BUN/Creatinine Ratio 10.7, Glucose 106, Calcium 8.4 L, Total Bilirubin 0.90, AST 56 H, ALT 112 H, Alkaline Phosphatase 95, C-React Prot Ext Range 210.00 H, Total Protein 7.1, Albumin 2.4 L, Globulin 4.7 H, Albumin/Globulin Ratio 0.5 L Microbiology: Microbiology 06/01/23 09:18 Blood Culture (Wb) - Anticubital Left Blood Culture - Preliminary No growth in 48 hours. 06/01/23 09:25 Blood Culture (Wb) - Anticubital Right Blood Culture - Preliminary No growth in 48 hours. 05/31/23 19:20 Urine, Clean Catch Urine Culture - Final Escherichia coli D/C Instructions Discharge Diet: No restrictions Meaningful Use Info Meaningful Use Diagnoses (Choose all that apply): None applicable Discharge Plan Admission Admit Date/Time: 05/31/23 20:59 Primary Reason for Your Visit: Burning on urination and flank pain Attending Provider: Maria Elena Cespedes Primary Care Provider: Care Physician,No Primary Consulting Providers: Joseph Agudelo; Michel Hodge Instructions Patient Instructions: ED Pyelonephritis, Female (Adult) Additional Instructions / Restrictions: DISCHARGE INSTRUCTIONS PLEASE READ *Please take this with you to your next doctors appointment* -You will be discharged on Keflex 500 mg 3 times a day through 06/10/2023, you will take a dose this afternoon and at bedtime and then 3 times daily thereafter. It is recommended that you have repeat CBC, CMP, CRP to check the inflammation in your body through a physician's office in 2 to 3 days after discharge. You can call the office of any physician or establish with to obtain order for blood work. -Your prescription was sent to the [facility] in [place] per your preference -If you have any return of left-sided pain, burning on urination, any fevers, any other concerning signs or symptoms at all please proceed immediately to the emergency department. -Please follow-up with Dr. Hodge with infectious disease upon discharge for hepatitis C. Please call their office to schedule hospital follow-up appointmen t upon discharge. Alternatively you can follow with the physician you have previously seen if applicable. - It is strongly advised that you refrain from any alcohol use. Please call [facility] located at [address] [place], [place] [phone] (ph [phone]) if you are interested in further resources -Please call your primary care provider's office upon discharge to schedule a hospital follow up within 1 week. -If you do not have a primary care physician of list of local primary care physicians can be provided for you upon discharge. Please ask for this list prior to discharge -For any concerning signs or symptoms please call 911 or proceed to the nearest emergency department Discharge Orders/Prescriptions Prescriptions: New cephalexin 500 mg capsule 500 mg PO TID 7 Days Qty: 21 0RF Continued buprenorphine-naloxone 8-2 mg tablet, sublingual 2 tab SUBLINGUAL DAILY Referrals / Follow Up: Michel Hogde MD [Med Staff - Active Staff] - ( -Please follow-up with infectious disease upon discharge for treatment of your hepatitis C. Please call their office to schedule hospital follow-up appointment upon discharge.) Care Physician,No Primary [Primary Care Provider] - ( -If you do not have a primary care physician of list of local primary care physicians can be provided for you upon discharge. Please ask for this list prior to discharge) Disposition Disposition (needs filled in before D/C Order can be placed): Home, Self Care Charges/Coding Visit Charges Inpatient E&M: 42146 Disch Hosp >30min
--- NOTE | 2023-06-04 22:42 | NURSING ---
Pt called into unit stating she missed two calls from the hospital today and wondered what they were regarding. Pt also stated that she left the hospital earlier today and may have left her rings in her bedside table. Rings found in specimen cup with pt's name label on cup. Pt made aware that rings are here locked in med room-she can come pick them up between visiting hours anytime. Pt states she will come in in a couple days to get rings.
[2023-06-07 09:49] LABS: Pathologist Review Reviewed
== END 2023-06-04 13:09 | disposition home or self-care (01) | DRG 463 ==
LOC: ED 20:42 → MS3 21:48
PROVIDERS: Admitting Provider Hospitalist; Emergency Provider Emergency Medicine; Visit Provider Internal Medicine
DX: N12 Tubulo-interstitial nephritis, not specified as acute or chronic (principal); B19.20 Unspecified viral hepatitis C without hepatic coma; K76.89 Other specified diseases of liver; F10.10 Alcohol abuse, uncomplicated; E87.6 Hypokalemia; F12.90 Cannabis use, unspecified, uncomplicated; F17.210 Nicotine dependence, cigarettes, uncomplicated; D72.810 Lymphocytopenia; K82.8 Other specified diseases of gallbladder; N30.00 Acute cystitis without hematuria; B96.20 Unspecified Escherichia coli [E. coli] as the cause of diseases classified elsewhere; Z79.2 Long term (current) use of antibiotics; Y90.9 Presence of alcohol in blood, level not specified
CPT/HCPCS: 36415; 71046; 74176; 74178; 80053; 80074; 80307; 80320; 81001; 82248; 83605; 84145; 84703; 85025; 85610; 85652; 86140; 86703; 86780; 87040; 87077; 87086; 87088; 87186; 97802; 99284; J7030; J7040; Q9967; A4216; G0480; J2405

== ENCOUNTER 2024-03-14 14:33 | Inpatient (IN) | payer SELFPAY ==
[2024-03-14 14:34] VITALS: BP 137/95; PULSE 110; RESP 18; TEMP 36.6; O2SAT 97; BMI 28.3
[2024-03-14 15:32] LABS: Absolute Lymphocyte Count 2.37 X10^3/uL (0.83-4.51); Absolute Neutrophil Count 3.8 X10^3/uL (2.0-7.7); Basophil# 0.05 X10^3/uL; Basophil% 0.7 % (0-1); Eosinophil# 0.04 X10^3/uL; Eosinophils% 0.6 % (0-5); Hematocrit 42.4 % (37-47); Hemoglobin 14.9 g/dL (12.0-15.0); Lymphocyte # 2.37 X10^3/ul (0.83-4.51); Lymphocyte % 35.3 % (19-41); Mean Corp Hgb Conc 35.1 g/dL (32-36); Mean Corpuscular Hgb 31.9 pg (27.0-32.0); Mean Corpuscular Volume 90.8 fL (81-99); Mean Platelet Vol. 7.8 fl (6.2-12.0); Monocyte# 0.44 X10^3/uL; Monocyte% 6.6 % (0-10); NRBC Flagged by Analyzer 0 % (0-5); Neutrophil # 3.77 X10^3/uL (2.7-7.7); Neutrophil % 56.2 % (47-70); Platelet Count 318 K/mm3 (150-450); Red Blood Count 4.67 M/mm3 (4.2-5.4); White Blood Count 6.7 K/mm3 (4.4-11.0)
[2024-03-14 15:44] LABS: Amphetamine Urine VISTA POSITIVE (<1000 ng/mL); Barbiturate Urine VISTA NEGATIVE (< 200 ng/mL); Benzodiazepine Urine VISTA NEGATIVE (< 200 ng/mL); Cocaine Urine VISTA NEGATIVE (< 300 ng/mL); Ecstacy Urine VISTA POSITIVE (< 500 ng/mL); Methadone Urine VISTA NEGATIVE (< 300 ng/mL); PCP Urine VISTA NEGATIVE (< 25 ng/mL); THC Urine VISTA POSITIVE (< 50 ng/mL); Vista UDS pH Range 6
[2024-03-14 15:55] LABS: Anion Gap 9 (5-15); BUN 14 mg/dL (7-18); BUN/Creat Ratio 16.1 RATIO (10-20); Calcium,Total 8.9 mg/dL (8.5-10.1); Chloride 101 mmol/L (98-107); Creatinine, Serum 0.87 mg/dL (0.55-1.02); EST Glomerular Filtration Rate 82 mL/min (>60); Est Glom Filt Rate - Afr Amer 99 mL/min (>60); Estimated Creatinine Clearance 98.08 ml/min; Glucose 141 mg/dL (74-106); Potassium 3.8 mmol/L (3.5-5.1); Sodium Level 137 mmol/L (136-145)
[2024-03-14 16:03] LABS: Internal QC Validated? YES +Cl - CLEAR BKGD; Pregnancy, Serum, hCG Quali. NEGATIVE Negative; Record Kit Lot#, Serum Preg. 718089
[2024-03-14 16:34] VITALS: BP 136/86; PULSE 110; RESP 18; O2SAT 98
--- NOTE | 2024-03-14 16:48 | EX.ED.SAOD ---
HPI History of Present Illness Chief Complaint: Substance Abuse Narrative Narrative: 28-year-old female with history of alcohol abuse presenting with desire for detox. Patient states she drinks about 1/5 bottles of vodka a day. She states she drank at least 1 today. She is feeling a little nauseous and that she started to withdrawal. She does withdrawal severely. She states he never had a seizure. Has detoxed here before at [place]. [facility] Medical History Desire for detoxification ETOH abuse History of drug use History of hepatitis C History of depression Multiparous Opioid use Tobacco use Home Medications buprenorphine 8 mg-naloxone 2 mg sublingual tablet 2 tab sublingual DAILY HX OPIOID ABUSE 06/01/23 [History Last Taken 05/31/23] cephalexin 500 mg capsule 500 mg PO TID 7 days #21 caps 06/04/23 [Rx Last Taken Unknown] Allergy/AdvReac Type Severity Reaction Status Date / Time No Known Allergies Allergy Verified 05/31/23 18:50 Family History Mother Diabetes Hypertension Thyroid disorder Social History Smoking Status: Current every day smoker tobacco type: cigarettes alcohol intake: current alcohol intake frequency: a few times a week substance use type: marijuana ROS ROS ED Constitutional Constitutional ED: Denies chills, fever(s) or sweats Eyes Eyes: Denies blurry vision or change in vision ENT ENT ED: Denies ear pain or sore throat Cardiovascular Cardiovascular: Denies chest pain, palpitations or racing heartbeat Respiratory/Chest Respiratory/Chest: Denies cough, dyspnea or sputum Gastrointestinal Gastrointestinal: Reports nausea; Denies abdominal pain, constipation, diarrhea or vomiting Genitourinary Genitourinary ED: Denies dysuria, hematuria or urinary frequency Musculoskeletal Musculoskeletal: Denies arthralgias, myalgias or neck pain Integumentary Denies abscess, Abrasions or rash Neurologic Neurologic: Denies headache(s), paresthesias or weakness Psychiatric Psychiatric: Denies anxiety, depression, suicidal ideation or suicidal thoughts Endocrine Endocrinology: Denies polydipsia or polyuria EXAM Physical Exam Const Vital Signs: 03/14/24 14:34 03/14/24 16:34 Temperature 97.8 F Temperature Source Temporal Pulse Rate 110 H 110 H Respiratory Rate 18 18 Blood Pressure 137/95 H 136/86 H Blood Pressure Mean 109 102 Pulse Ox 97 98 Oxygen Delivery Method Room Air Room Air Positive well nourished General Appearance ED: NAD; Negative for pallor HEENT Reports moist mucous membranes Eyes PERRL and EOMs intact bilaterally Lymph Lymphatic: no lymphadenopathy noted Resp normal respiratory effort Cardio regular rate Rate: tachycardic GI soft to palpation Neuro oriented x3 and CN's II-XII intact bilaterally Sensorium / Orientation: alert Motor Exam: strength 5/5 throughout Psych mental status grossly normal Skin General Skin Exam: Negative for jaundice or pallor MDM MDM MDM Narrative Medical decision making narrative: Patient was given a dose of Ativan and Zofran because she states he was nauseous. CBC shows normal white blood cell count, hemoglobin and platelets. BMP normal renal function electrolytes. Glucose 141 without anion gap. Urine drug screen positive for amphetamines, MDMA, cannabinoids. EtOH 279. hCG negative. Discussed with hospitalist for admission. Impression: 1. EtOH abuse 2. EtOH intoxication 3. Presentation for EtOH detox. Lab Data Labs: Laboratory Results - last 24 hr 03/14/24 03/14/24 03/14/24 15:06 15:20 16:47 WBC 6.7 RBC 4.67 Hgb 14.9 Hct 42.4 MCV 90.8 MCH 31.9 MCHC 35.1 RDW Std Deviation 40.0 RDW Coeff of [place] 12.0 Plt Count 318 MPV 7.8 Immature Gran % (Auto) 0.600 Neut % (Auto) 56.2 Lymph % (Auto) 35.3 [place] % (Auto) 6.6 Eos % (Auto) 0.6 Baso % (Auto) 0.7 Absolute Neuts (auto) 3.8 Absolute Lymphs (auto) 2.37 Nucleated RBC % 0 Sodium 137 Potassium 3.8 Chloride 101 Carbon Dioxide 27.0 Anion Gap 9 BUN 14 Creatinine 0.87 Estim Creat Clear Calc 98.08 Est GFR (MDRD) Af Amer 99 Est GFR (MDRD) Non-Af 82 BUN/Creatinine Ratio 16.1 Glucose 141 H Calcium 8.9 Serum , Qual NEGATIVE Urine Opiates Screen NEGATIVE Urine Methadone Screen NEGATIVE Ur Barbiturates Screen NEGATIVE Ur Phencyclidine Scrn NEGATIVE Ur Amphetamines Screen POSITIVE H MDMA (Ecstasy) Screen POSITIVE H U Benzodiazepines Scrn NEGATIVE Urine Cocaine Screen NEGATIVE U Cannabinoids Screen POSITIVE H Ur Drug Screen Comment Ethyl Alcohol 279.0 Discharge Plan Triage Chief Complaint: Substance Abuse ED Provider: Doug Arboleda Dx/Rx/DC Orders Primary Care Provider: Care Physician,No Primary
--- NOTE | 2024-03-14 17:14 | PCM.HP.STD ---
HPI - General General Date of Admission: 03/14/24 Date of Service: 03/14/24 Chief Complaint: Wants Help with EtOH Detox. HPI Narrative TRES MERIDA, is a 28 F with a past medical history of UTI, pyelonephritis, history of depression, Hepatitis C, history of opiate abuse; on Suboxone and chronic EtOH abuse who presents to [facility] ER complaining of wanting help with EtOH detoxification. Ms. Merida reports her symptoms she typically drinks 1/5 bottle of vodka per day including one earlier today. She then began to feel little nauseous and started to have some tremoring suggestive of early withdrawals but she denies seizure or history of DTs. She states she has underwent a detox program here in the past. She denies associated fever, chills, vomiting, diarrhea or constipation. In the ER she was diagnosed with impending alcohol withdrawal in the setting of chronic alcohol abuse with her urine drug screen positive for amphetamines, MDMA and cannabis with a blood alcohol concentration of 279 mg/dL and she was then admitted to the general medical floor for ongoing care for stay that expected to be greater than 48 hours. [facility] Medical History Desire for detoxification ETOH abuse History of drug use History of hepatitis C History of depression Multiparous Opioid use Tobacco use Home Medications buprenorphine 8 mg-naloxone 2 mg sublingual tablet 2 tab sublingual DAILY HX OPIOID ABUSE 06/01/23 [History Last Taken 05/31/23] cephalexin 500 mg capsule 500 mg PO TID 7 days #21 caps 06/04/23 [Rx Last Taken Unknown] Allergy/AdvReac Type Severity Reaction Status Date / Time No Known Allergies Allergy Verified 05/31/23 18:50 Family History Mother Diabetes Hypertension Thyroid disorder Social History Smoking Status: Current every day smoker tobacco type: cigarettes alcohol intake: current alcohol intake frequency: a few times a week substance use type: marijuana ROS ROS Narrative Review of systems: General: Patient denies fever or chills. HENT: Denies headache, denies stuffy nose, denies sore throat EYES: Denies changes in vision or discharge from eyes. Resp: Denies cough, denies shortness of breath Cardiac: Denies chest pain, palpitations or heart racing. GI: Denies abdominal pain, denies changes in bowel, had some nausea but denies vomiting. : Denies changes in urination Extremity: Denies swelling Musculoskeletal: Feels somewhat generally weak and unwell but denies arthralgias or myalgias Neuro: Patient denies headache, paresthesias or focal neurologic weakness but she does admit to mild generalized tremor. Heme: Denies any bleeding or bruising Skin: Denies rashes Psychiatric: Patient admits to being depressed due to being unable to control her addiction having to continually use not to get sick. She denies suicidal or homicidal ideation. Endocrine: No polyuria, polyphagia or polydipsia. The rest of the 14 point ROS was negative except for positives in HPI. Vital Signs Vital Signs Vital Signs: 03/14/24 14:34 Temperature 97.8 F Temperature Source Temporal Pulse Rate 110 H Respiratory Rate 18 Blood Pressure 137/95 H Blood Pressure Mean 109 Pulse Ox 97 Oxygen Delivery Method Room Air Weight Weight: 170 lb 6.4 oz Body Mass Index (BMI) 28.3 Physical Exam Const alert, oriented x3, no apparent distress, average body habitus and healthy appearing General Appearance: cooperative HEENT normocephalic, head/scalp atraumatic, hearing grossly normal bilaterally and moist oral mucous membranes Eyes PERRL and EOMs intact bilaterally Eyes Narrative: Conjunctivae are injected. Neck no lymphadenopathy and supple Resp normal respiratory effort, no retractions, no use of accessory muscles and clear to auscultation bilaterally Cardio regular rate and regular rhythm GI normal to inspection, nondistended, normoactive bowel sounds, soft to palpation, non-tender and non-distended Extremity normal to inspection and full ROM Skin Skin Narrative: Patient has no evidence of jaundice, abscess or rash. Neuro oriented x3, CN's II-XII intact bilaterally, moves all extremities and no focal motor deficits Sensorium / Orientation: awake, alert, oriented to person, oriented to place and oriented to time Speech: speech normal Motor Exam: strength 5/5 throughout Psych affect normal Results Medical Records Data Attestation: I reviewed the patient's medical records Lab / Micro Data Attestation: I reviewed the patient's lab results. 03/14/24 15:20 03/14/24 15:20 Labs: Laboratory Results - last 24 hr 03/14/24 15:06: Urine Opiates Screen NEGATIVE, Urine Methadone Screen NEGATIVE, Ur Barbiturates Screen NEGATIVE, Ur Phencyclidine Scrn NEGATIVE, Ur Amphetamines Screen POSITIVE H, MDMA (Ecstasy) Screen POSITIVE H, U Benzodiazepines Scrn NEGATIVE, Urine Cocaine Screen NEGATIVE, U Cannabinoids Screen POSITIVE H, Ur Drug Screen Comment 03/14/24 15:20: WBC 6.7, RBC 4.67, Hgb 14.9, Hct 42.4, MCV 90.8, MCH 31.9, MCHC 35.1, RDW Std Deviation 40.0, RDW Coeff of [place] 12.0, Plt Count 318, MPV 7.8, Immature Gran % (Auto) 0.600, Neut % (Auto) 56.2, Lymph % (Auto) 35.3, [place] % (Auto) 6.6, Eos % (Auto) 0.6, Baso % (Auto) 0.7, Absolute Neuts (auto) 3.8, Absolute Lymphs (auto) 2.37, Nucleated RBC % 0, Sodium 137, Potassium 3.8, Chloride 101, Carbon Dioxide 27.0, Anion Gap 9, BUN 14, Creatinine 0.87, Estim Creat Clear Calc 98.08, Est GFR (MDRD) Af Amer 99, Est GFR (MDRD) Non-Af 82, BUN/Creatinine Ratio 16.1, Glucose 141 H, Calcium 8.9, Serum , Qual NEGATIVE Assessment & Plan Assessment/Plan (1) Alcohol withdrawal: QUALIFIERS: Complication of substance-induced condition: uncomplicated Qualified Code(s): F10.930 - Alcohol use, unspecified with withdrawal, uncomplicated (2) Chronic alcohol abuse: (3) Polysubstance abuse: (4) Hepatitis C: QUALIFIERS: Viral hepatitis chronicity: unspecified Hepatic coma status: without hepatic coma Qualified Code(s): B19.20 - Unspecified viral hepatitis C without hepatic coma PLAN: Plan 1. Impending alcohol withdrawal in the setting of chronic polysubstance abuse and chronic alcohol abuse with her urine drug screen positive for amphetamines, MDMA and cannabis with a blood alcohol concentration of 279 mg/dL present on admission - Admit to general medical floor for treatment under the alcohol detoxification protocol. We will continue her Suboxone as previous. Polysubstance abuse and alcohol abuse will be strongly discouraged. 2. Chronic hepatitis C - Noted. Patient was very strongly encouraged not to drink with chronic hepatitis C. 3. History of UTI and pyelonephritis - Check UA this admission. 4. DVT prophylaxis - Lovenox 40 mg sq daily. Total time: Approximately 55 minutes. Charges/Coding Visit Charges Inpatient E&M: 39421 Init Hosp L2
[2024-03-14] MEDS: Ondansetron 4 MG/2 ML Vial IV (17:26)
[2024-03-14] MEDS: LORazepam 2 MG/ML Syringe 1 MG IV (17:27)
[2024-03-14 17:46] LABS: Mucous, Urine 0 SEEN /hpf (<or=2+); Red Blood Cells-Urine 0 SEEN /hpf (0-5); White Blood Cells 0 SEEN /hpf (0-5)
[2024-03-14 17:55] VITALS: BP 136/86; PULSE 110; RESP 18; TEMP 36.7; O2SAT 98
[2024-03-14 18:10] LABS: Color, Urine Yellow (Yellow); Glucose, Dipstick Normal (Normal); Ketone-Dipstick Negative (Negative); Leukocyte Esterase-Dipstick Negative /ul (Negative); Nitrite-Dipstick Positive (Negative); Occult Blood-Urine 10 /ul (Negative); Protein-Dipstick 30 mg/dl (Negative); Specific Gravity, Urine 1.015 (1.002-1.030); Urine Bilirubin Dipstick Negative (Negative); Urine Clarity Clear (Clear); Urine Urobilinogen Normal (Normal)
[2024-03-14 18:24] VITALS: BMI 28.3
[2024-03-14 18:34] LABS: Amorphous Sediment 1+; Bacteria 2+ /hpf (None Seen); Squamous Epithelial Cells - UA 0-5 SEEN /hpf (5-10)
[2024-03-14] MEDS: hydrOXYzine PAM 25 MG Capsule 50 MG PO (18:52)
[2024-03-14] MEDS: Dicyclomine 10 MG Capsule 20 MG PO (18:53)
[2024-03-14] MEDS: Gabapentin 300 MG Capsule PO (18:53)
[2024-03-14] MEDS: Phenobarbital 32.4 MG Tablet PO ×2 (18:53→23:27)
[2024-03-14 19:24] VITALS: BP 136/97; PULSE 102; RESP 18; TEMP 36.7; O2SAT 99
[2024-03-14 20:40] LABS: Magnesium 2.1 mg/dL (1.6-2.6); Phosphorus 3.3 mg/dL (2.5-4.9)
[2024-03-14] MEDS: Ondansetron 8 MG Tablet PO (20:50)
[2024-03-14] MEDS: Lactated Ringers 1,000 ML 125 ML IV (20:52)
[2024-03-14] MEDS: traZODone 100 MG Tablet PO (23:28)
[2024-03-15 03:00] VITALS: BP 124/82; PULSE 86; RESP 18; TEMP 36.8; O2SAT 97
[2024-03-15] MEDS: Phenobarbital 32.4 MG Tablet PO ×6 (03:56→22:55)
[2024-03-15] MEDS: hydrOXYzine PAM 25 MG Capsule 50 MG PO ×4 (03:57→22:55)
[2024-03-15 06:00] VITALS: BP 125/82; PULSE 82; RESP 18; TEMP 36.8; O2SAT 97
[2024-03-15] MEDS: Ondansetron 8 MG Tablet PO ×2 (06:10→14:51)
[2024-03-15 08:36] VITALS: O2SAT 95
--- NOTE | 2024-03-15 08:47 | PN.HOSP_ITS ---
Reason for Visit Reason for Visit: Diagnoses Unspecified viral hepatitis C without hepatic coma (03/14/24) Alcohol abuse, uncomplicated (03/14/24) Alcohol use, unspecified with withdrawal, uncomplicated (03/14/24) Other psychoactive substance abuse, uncomplicated (03/14/24) Subjective Subjective Patient is a 58-year-old lady with history of chronic alcohol dependence admitted with desire to undergo medical stabiliza Objective Data Objective Data Vital Signs: Vital Signs Temp Pulse Resp BP Pulse Ox O2 Del Method 98.2 F 82 18 125/82 H 95 Room Air 03/15/24 06:00 03/15/24 06:00 03/15/24 06:00 03/15/24 06:00 03/15/24 08:36 03/15/24 08:36 Oxygen Delivery Method Room Air Weight: 77.292 kg Body Mass Index (BMI) 28.3 Intake & Output: Intake and Output for Last 24 Hours 03/13/24 03/14/24 03/15/24 23:59 23:59 23:59 Intake Total 1000 / 1000 Balance 1000 / 1000 Lab / Micro Data 03/14/24 15:20 03/14/24 15:20 Labs: Laboratory Results - last 24 hr 03/14/24 15:06: Urine Color Yellow, Urine Clarity Clear, Urine pH 6.0, Ur Specific [place] 1.015, Urine Protein 30 H, Urine Glucose (UA) Normal, Urine Ketones Negative, Urine Occult Blood 10 H, Urine Nitrite Positive H, Urine Bilirubin Negative, Urine Urobilinogen Normal, Ur Leukocyte Esterase Negative, Urine RBC 0 SEEN, Urine WBC 0 SEEN, Ur Squamous Epith Cells 0-5 SEEN, Amorphous Sediment 1+, Urine Bacteria 2+, Urine Mucus 0 SEEN, Urine Opiates Screen NEGATIVE, Urine Methadone Screen NEGATIVE, Ur Barbiturates Screen NEGATIVE, Ur Phencyclidine Scrn NEGATIVE, Ur Amphetamines Screen POSITIVE H, MDMA (Ecstasy) S creen POSITIVE H, U Benzodiazepines Scrn NEGATIVE, Urine Cocaine Screen NEGATIVE, U Cannabinoids Screen POSITIVE H, Ur Drug Screen Comment 03/14/24 15:20: WBC 6.7, RBC 4.67, Hgb 14.9, Hct 42.4, MCV 90.8, MCH 31.9, MCHC 35.1, RDW Std Deviation 40.0, RDW Coeff of [place] 12.0, Plt Count 318, MPV 7.8, Immature Gran % (Auto) 0.600, Neut % (Auto) 56.2, Lymph % (Auto) 35.3, [place] % (Auto) 6.6, Eos % (Auto) 0.6, Baso % (Auto) 0.7, Absolute Neuts (auto) 3.8, Absolute Lymphs (auto) 2.37, Nucleated RBC % 0, Sodium 137, Potassium 3.8, Chloride 101, Carbon Dioxide 27.0, Anion Gap 9, BUN 14, Creatinine 0.87, Estim Creat Clear Calc 98.08, Est GFR (MDRD) Af Amer 99, Est GFR (MDRD) Non-Af 82, BUN/Creatinine Ratio 16.1, Glucose 141 H, Calcium 8.9, Phosphorus 3.3, Magnesium 2.1, Serum , Qual NEGATIVE 03/14/24 16:47: Ethyl Alcohol 279.0 Physical Exam Narrative GENERAL: cooperative HEENT: Atraumatic; normocephalic EYES; Anicteric, Normal Conjunctiva NECK; supple, normal thyroid, RESPIRATORY: Diminished to auscultation CARDIOVASCULAR: Regular S1 S2, GI: soft, normoactive bowel sounds, : No Renal angle tenderness; EXTREMITIES: No edema, no clubbing, MUSCULOSKELETAL: no muscle wasting NEURO: Awake; no lateralizing signs. SKIN: No Rash PSYCH; Flat affect Assessment & Plan Assessment/Plan (1) Alcohol withdrawal: QUALIFIERS: Complication of substance-induced condition: uncomp licated Qualified Code(s): F10.930 - Alcohol use, unspecified with withdrawal, uncomplicated (2) Chronic alcohol abuse: (3) Polysubstance abuse: (4) Hepatitis C: QUALIFIERS: Viral hepatitis chronicity: unspecified Hepatic coma status: without hepatic coma Qualified Code(s): B19.20 - Unspecified viral hepatitis C without hepatic coma PLAN: Plan Patient is a 58-year-old lady with history of chronic alcohol dependence admitted with desire to undergo medical stabilization 1. Chronic alcohol dependence at risk for withdrawal ? Patient has been admitted to regular nursing fl. Treatment initiated with phenobarb taper 2. Polysubstance abuse ? Urine drug screen was positive for amphetamines MDMA and cannabis. Counseled on cessation 3. Chronic hep C ? Patient to follow-up with PCP 4. Tobacco dependence - Counseled on cessation, offered nicotine patch for tobacco cravings 5. DVT prophylaxis ? Low risk early ambulation encouraged Time spent in the patient's overall evaluation,decision-making process, review of diagnostic data, adjustment of management, discussion with other providers, nursing nursing and ancillary staff involved in patient's care documentation, 36 minutes Charges/Coding Visit Charges Inpatient E&M: 04582 Subs Hosp L2
[2024-03-15] MEDS: Dicyclomine 10 MG Capsule 20 MG PO (10:10)
[2024-03-15] MEDS: Acetaminophen 500 MG Tablet PO (10:10)
[2024-03-15] MEDS: buprenorphine HCL 8 MG TAB.SUBL 16 MG SL (10:10)
[2024-03-15] MEDS: Thiamine Hydrochloride 100 MG Tablet PO (10:11)
[2024-03-15] MEDS: Folic Acid 1 MG Tablet PO (10:11)
[2024-03-15] MEDS: Enoxaparin 40 MG/0.4 ML Syringe SC (10:11)
[2024-03-15 10:15] VITALS: BP 124/82; PULSE 90; RESP 16; TEMP 36.6; O2SAT 98
--- NOTE | 2024-03-15 10:27 | CASEMGMT ---
Social Work SW spoke w/pt as she is listed as self pay. Pt already met w/[facility] from [employer] and completed the Medicaid application. SW gave pt additional resources including [employer], [employer], [facility] assist, Prescription assistance programs and [facility]. No further needs anticipated at this time. HARLEY Walters
--- NOTE | 2024-03-15 10:54 | ADDICTION ---
Client is a 28 year old female who presented to the ER 03/14/24 for ETOH detox. This song writer met with client-she reports she started drinking at the age of [age] years old, became problematic around age [age] years old. Usual daily intake is 2-3 bottles of Vodka daily. Denies legal issues. Reports h/o DUI x2, most recent DUI was a few years ago. She is currently on Suboxone for h/o Opioid use-reports 7 years sober from Opioids/Heroin. Client reports she completed inpatient detox about 1 year ago. Denies attempting residential treatment in the past. Client is employed outside the home, she has 3 children. She resides with her Aunt who is a positive sober support. She reports she has spoken with Kevin HUNTER ([facility]) and has a bed secured, she plans to admit after completing detox. Charge nurse, RAMP coordinator, ELSA notified of admission.
[2024-03-15 14:45] VITALS: BP 121/80; PULSE 79; RESP 16; TEMP 36.8; O2SAT 99
[2024-03-15] MEDS: traZODone 100 MG Tablet PO (22:55)
[2024-03-16] MEDS: Phenobarbital 32.4 MG Tablet PO ×6 (03:31→23:16)
[2024-03-16] MEDS: Ibuprofen 600 MG Tablet PO ×2 (03:34→23:20)
[2024-03-16 03:36] VITALS: BP 111/78; PULSE 72; RESP 18; TEMP 36.6; O2SAT 98
--- NOTE | 2024-03-16 07:13 | PCM.PN.HOSP ---
Reason for Visit Reason for Visit: Diagnoses Unspecified viral hepatitis C without hepatic coma (03/14/24) Alcohol abuse, uncomplicated (03/14/24) Alcohol use, unspecified with withdrawal, uncomplicated (03/14/24) Other psychoactive substance abuse, uncomplicated (03/14/24) Subjective Subjective Patient seen complaining of allergy symptoms started on Claritin Objective Data Objective Data Vital Signs: Vital Signs Temp Pulse Resp BP Pulse Ox O2 Del Method 97.9 F 72 18 111/78 98 Room Air 03/16/24 03:36 03/16/24 03:36 03/16/24 03:36 03/16/24 03:36 03/16/24 03:36 03/16/24 03:36 Oxygen Delivery Method Room Air Weight: 77.292 kg Body Mass Index (BMI) 28.3 Intake & Output: Intake and Output for Last 24 Hours 03/14/24 03/15/24 03/16/24 23:59 23:59 23:59 Intake Total 1000 / 1000 Balance 1000 / 1000 Lab / Micro Data 03/14/24 15:20 03/14/24 15:20 Physical Exam Narrative GENERAL: cooperative HEENT: Atraumatic; normocephalic EYES; Anicteric, Normal Conjunctiva NECK; supple, normal thyroid, RESPIRATORY: Diminished to auscultation CARDIOVASCULAR: Regular S1 S2, GI: soft, normoactive bowel sounds, : No Renal angle tenderness; EXTREMITIES: No edema, no clubbing, MUSCULOSKELETAL: no muscle wasting NEURO: Awake; no lateralizing signs. SKIN: No Rash PSYCH; Flat affect Assessment & Plan Assessment/Plan (1) Alcohol withdrawal: QUALIFIERS: Complication of substance-induced condition: uncomplicated Qualified Code(s): F10.930 - Alcohol use, unspecified with withdrawal, uncomplicated (2) Chronic alcohol abuse: (3) Polysubstance abuse: (4) Hepatitis C: QUALIFIERS: Hepatic coma status: without hepatic coma Viral hepatitis chronicity: unspecified Qualified Code(s): B19.20 - Unspecified viral hepatitis C without hepatic coma PLAN: Plan Patient is a 58-year-old lady with history of chronic alcohol dependence admitted with desire to undergo medical stabilization 1. Chronic alcohol dependence at risk for withdrawal ? Patient has been admitted to regular nursing fl. Treatment initiated with phenobarb taper 2. Polysubstance abuse ? Urine drug screen was positive for amphetamines MDMA and cannabis. Counseled on cessation 3. Chronic hep C ? Patient to follow-up with PCP 4. Tobacco dependence - Counseled on cessation, offered nicotine patch for tobacco cravings 5. DVT prophylaxis ? Low risk early ambulation encouraged 6. Allergic rhinitis ? Patient started on Claritin Time spent in the patient's overall evaluation,decision-making process, review of diagnostic data, adjustment of management, discussion with other providers, nursing nursing and ancillary staff involved in patient's care documentation, 35 minutes Charges/Coding Visit Charges Inpatient E&M: 46107 Subs Hosp L2
[2024-03-16] MEDS: Thiamine Hydrochloride 100 MG Tablet PO (07:52)
[2024-03-16] MEDS: Folic Acid 1 MG Tablet PO (07:52)
[2024-03-16 07:55] VITALS: BP 110/56; PULSE 75; RESP 18; TEMP 36.2; O2SAT 99
[2024-03-16] MEDS: hydrOXYzine PAM 25 MG Capsule 50 MG PO ×2 (07:56→20:37)
[2024-03-16] MEDS: Ondansetron 8 MG Tablet PO ×2 (07:56→20:37)
[2024-03-16] MEDS: Loratadine 10 MG Tablet PO (10:31)
[2024-03-16] MEDS: buprenorphine HCL 8 MG TAB.SUBL 16 MG SL (10:31)
--- NOTE | 2024-03-16 14:07 | ADDICTION ---
Pt has been approved for residential treatment at [facility]. Patient will be transported there Tuesday.
[2024-03-16 14:40] VITALS: BP 115/76; PULSE 105; RESP 18; TEMP 36.1; O2SAT 96
[2024-03-16] MEDS: Dicyclomine 10 MG Capsule 20 MG PO (20:37)
[2024-03-16 20:42] VITALS: BP 125/82; PULSE 77; RESP 14; TEMP 36.5; O2SAT 99
[2024-03-17] VITALS (7 sets, daily range): BP systolic 95–106; BP diastolic 57–64; PULSE 65–75; RESP 14–18; TEMP 36.4–36.6; O2SAT 95–98
[2024-03-17] MEDS: Acetaminophen 500 MG Tablet PO ×2 (03:31→18:59)
[2024-03-17] MEDS: Phenobarbital 32.4 MG Tablet PO ×4 (03:31→20:41)
[2024-03-17] MEDS: hydrOXYzine PAM 25 MG Capsule 50 MG PO ×4 (03:31→20:41)
--- NOTE | 2024-03-17 07:14 | PCM.DC.SUM ---
Providers Date of Admission: 03/14/24 Date of Discharge: 03/17/24 Primary Care Physician: No Primary Care Phys Reason For Visit: ACUTE ALCOHOL WITHDRAWAL IN THE SETTING OF Diagnosis Discharge Diagnosis (1) Alcohol withdrawal: Status: Acute Code(s): F10.939 - Alcohol use, unspecified with withdrawal, unspecified Qualifiers: Complication of substance-induced condition: uncomplicated Qualified Code(s): F10.930 - Alcohol use, unspecified with withdrawal, uncomplicated (2) Chronic alcohol abuse: Status: Chronic Code(s): F10.10 - Alcohol abuse, uncomplicated (3) Polysubstance abuse: Status: Acute Code(s): F19.10 - Other psychoactive substance abuse, uncomplicated (4) Hepatitis C: Status: Acute Code(s): B19.20 - Unspecified viral hepatitis C without hepatic coma Qualifiers: Viral hepatitis chronicity: unspecified Hepatic coma status: without hepatic coma Qualified Code(s): B19.20 - Unspecified viral hepatitis C without hepatic coma Plan Patient is a 58-year-old lady with history of chronic alcohol dependence admitted with desire to undergo medical stabilization 1. Chronic alcohol dependence at risk for withdrawal ? Patient has been admitted to regular nursing fl. Treatment initiated with phenobarb taper 2. Polysubstance abuse ? Urine drug screen was positive for amphetamines MDMA and cannabis. Counseled on cessation 3. Chronic hep C ? Patient to follow-up with PCP 4. Tobacco dependence - Counseled on cessation, offered nicotine patch for tobacco cravings 5. DVT prophylaxis ? Low risk early ambulation encouraged 6. Allergic rhinitis ? Patient started on Claritin Time spent in the patient's overall evaluation,decision-making process, review of diagnostic data, adjustment of management, discussion with other providers, nursing nursing and ancillary staff involved in patient's care documentation, 35 minutes Medications at Discharge Home Medications buprenorphine 8 mg-naloxone 2 mg sublingual tablet 2 tab sublingual DAILY HX OPIOID ABUSE 06/01/23 Physical Exam Narrative GENERAL: cooperative HEENT: Atraumatic; normocephalic EYES; Anicteric, Normal Conjunctiva NECK; supple, normal thyroid, RESPIRATORY: Diminished to auscultation CARDIOVASCULAR: Regular S1 S2, GI: soft, normoactive bowel sounds, : No Renal angle tenderness; EXTREMITIES: No edema, no clubbing, MUSCULOSKELETAL: no muscle wasting NEURO: Awake; no lateralizing signs. SKIN: No Rash PSYCH; Flat affect Weight / BMI Weight Weight: 77.292 kg Body Mass Index (BMI) 28.3 ABG / Lab / Microbiology Data 03/14/24 15:20 03/14/24 15:20 D/C Instructions Discharge Diet: No restrictions Discharge Activity: Return to Normal Activity Call your doctor if you observe: Fever of 101 or Higher, Shortness of breath, Fainting spells and Chest pain Meaningful Use Info Meaningful Use Meaningful Use Diagnoses (Choose all that apply): None applicable Ischemic Stroke Statin Dosing Therapy Reference: STATIN DOSE THERAPY REFERENCE: * Patients > 75 years receive moderate or high dose statin therapy. * Patients 75 years or YOUNGER should receive HIGH intensity statin dose unless contraindicated. You will be required to document reason for non-treatment if statin daily dose does not meet guidelines. HIGH DOSE STATIN THERAPY DAILY Atorvastatin > than or = to 40 mg Rosuvastatin > than or = to 20 mg Amlodipine + Atorvastatin > than or = to 2.5/40 mg Ezetimibe + Simvastatin 10/80 mg Simvastatin 80mg Discharge Plan Admission Admit Date/Time: 03/14/24 17:30 Attending Provider: Rosales Guo Primary Care Provider: Care Physician,No Primary Consulting Providers: Rosales Abarca Discharge Orders/Prescriptions Prescriptions: Continued buprenorphine-naloxone 8-2 mg tablet, sublingual 2 tab SUBLINGUAL DAILY Discontinued cephalexin 500 mg capsule 500 mg PO TID 7 Days Qty: 21 0RF Referrals / Follow Up: Care Physician,No Primary [Primary Care Provider] - Disposition Disposition (needs filled in before D/C Order can be placed): Home, Self Care Charges/Coding Visit Charges Inpatient E&M: 49919 Disch Hosp >30min
[2024-03-17] MEDS: Thiamine Hydrochloride 100 MG Tablet PO (08:15)
[2024-03-17] MEDS: Folic Acid 1 MG Tablet PO (08:15)
--- NOTE | 2024-03-17 09:48 | PCM.PN.HOSP ---
Reason for Visit Reason for Visit: Diagnoses Unspecified viral hepatitis C without hepatic coma (03/14/24) Alcohol abuse, uncomplicated (03/14/24) Alcohol use, unspecified with withdrawal, uncomplicated (03/14/24) Other psychoactive substance abuse, uncomplicated (03/14/24) Subjective Subjective Patient seen continues to improve clinically. Objective Data Objective Data Vital Signs: Vital Signs Temp Pulse Resp BP Pulse Ox O2 Del Method 97.8 F 70 18 98/58 L 97 Room Air 03/17/24 03:28 03/17/24 08:17 03/17/24 08:17 03/17/24 03:28 03/17/24 08:17 03/17/24 08:17 Oxygen Delivery Method Room Air Weight: 77.292 kg Body Mass Index (BMI) 28.3 Intake & Output: Intake and Output for Last 24 Hours 03/15/24 03/16/24 03/17/24 23:59 23:59 23:59 Intake Total 1000 / 1000 940 / 940 Balance 1000 / 1000 940 / 940 Lab / Micro Data 03/14/24 15:20 03/14/24 15:20 Physical Exam Narrative GENERAL: cooperative HEENT: Atraumatic; normocephalic EYES; Anicteric, Normal Conjunctiva NECK; supple, normal thyroid, RESPIRATORY: Diminished to auscultation CARDIOVASCULAR: Regular S1 S2, GI: soft, normoactive bowel sounds, : No Renal angle tenderness; EXTREMITIES: No edema, no clubbing, MUSCULOSKELETAL: no muscle wasting NEURO: Awake; no lateralizing signs. SKIN: No Rash PSYCH; Flat affect Assessment & Plan Assessment/Plan (1) Chronic alcohol abuse: PLAN: Plan Patient is a 58-year-old lady with history of chronic alcohol dependence admitted with desire to undergo medical stabilization 1. Chronic alcohol dependence at risk for withdrawal ? Patient has been admitted to regular nursing floor. Treatment initiated with phenobarb taper ? 03/17/2024. Patient has tolerated the phenobarb taper well so far. Plan is for patient to be discharged to an inpatient rehab facility on 03/19/2024 2. Polysubstance abuse ? Urine drug screen was positive for amphetamines MDMA and cannabis. Counseled on cessation 3. Chronic hep C ? Patient to follow-up with PCP 4. Tobacco dependence - Counseled on cessation, offered nicotine patch for tobacco cravings 5. DVT prophylaxis ? Low risk early ambulation encouraged 6. Allergic rhinitis ? Patient started on Claritin ? 03/17/2024; symptoms improved Time spent in the patient's overall evaluation,decision-making process, review of diagnostic data, adjustment of management, discussion with other providers, nursing nursing and ancillary staff involved in patient's care documentation, 35 minutes Charges/Coding Visit Charges Inpatient E&M: 16159 Subs Hosp L2
[2024-03-17] MEDS: Ondansetron 8 MG Tablet PO ×2 (10:01→18:52)
[2024-03-17] MEDS: buprenorphine HCL 8 MG TAB.SUBL 16 MG SL (10:14)
[2024-03-17] MEDS: Loratadine 10 MG Tablet PO (10:14)
[2024-03-17] MEDS: Dicyclomine 10 MG Capsule 20 MG PO ×2 (10:15→18:52)
[2024-03-17] MEDS: Ibuprofen 600 MG Tablet PO ×2 (14:07→23:17)
[2024-03-17] MEDS: Gabapentin 300 MG Capsule PO (23:17)
[2024-03-18 02:31] VITALS: BP 95/63; PULSE 66; RESP 14; TEMP 36.4; O2SAT 99
[2024-03-18] MEDS: Phenobarbital 32.4 MG Tablet PO ×4 (02:33→20:04)
[2024-03-18] MEDS: hydrOXYzine PAM 25 MG Capsule 50 MG PO ×3 (02:34→20:05)
[2024-03-18] MEDS: Dicyclomine 10 MG Capsule 20 MG PO ×3 (02:34→20:04)
--- NOTE | 2024-03-18 07:34 | PCM.PN.HOSP ---
Reason for Visit Reason for Visit: Diagnoses Unspecified viral hepatitis C without hepatic coma (03/14/24) Alcohol abuse, uncomplicated (03/14/24) Alcohol use, unspecified with withdrawal, uncomplicated (03/14/24) Other psychoactive substance abuse, uncomplicated (03/14/24) Subjective Subjective No change in clinical condition. Plan is for patient to be discharged to inpatient rehab unit to continue with her recuperation on 03/19/2024 Objective Data Objective Data Vital Signs: Vital Signs Temp Pulse Resp BP Pulse Ox O2 Del Method 97.6 F L 66 14 95/63 99 Room Air 03/18/24 02:31 03/18/24 02:31 03/18/24 02:31 03/18/24 02:31 03/18/24 02:31 03/18/24 02:31 Oxygen Delivery Method Room Air Weight: 77.292 kg Body Mass Index (BMI) 28.3 Intake & Output: Intake and Output for Last 24 Hours 03/16/24 03/17/24 03/18/24 23:59 23:59 23:59 Intake Total 2089 440 / 440 Balance 2089 440 / 440 Lab / Micro Data 03/14/24 15:20 03/14/24 15:20 Physical Exam Narrative GENERAL: cooperative HEENT: Atraumatic; normocephalic EYES; Anicteric, Normal Conjunctiva NECK; supple, normal thyroid, RESPIRATORY: Diminished to auscultation CARDIOVASCULAR: Regular S1 S2, GI: soft, normoactive bowel sounds, : No Renal angle tenderness; EXTREMITIES: No edema, no clubbing, MUSCULOSKELETAL: no muscle wasting NEURO: Awake; no lateralizing signs. SKIN: No Rash PSYCH; Flat affect Assessment & Plan Assessment/Plan (1) Chronic alcohol abuse: PLAN: Plan Patient is a 58-year-old lady with history of chronic alcohol dependence admitted with desire to undergo medical stabilization 1. Chronic alcohol dependence at risk for withdrawal ? Patient has been admitted to regular nursing floor. Treatment initiated with phenobarb taper ? 03/17/2024. Patient has tolerated the phenobarb taper well so far. Plan is for patient to be discharged to an inpatient rehab facility on 03/19/2024 ? 03/18/2024; No change in clinical condition. Plan is for patient to be discharged to inpatient rehab unit to continue with her recuperation on 03/19/2024 2. Polysubstance abuse ? Urine drug screen was positive for amphetamines MDMA and cannabis. Counseled on cessation 3. Chronic hep C ? Patient to follow-up with PCP 4. Tobacco dependence - Counseled on cessation, offered nicotine patch for tobacco cravings 5. DVT prophylaxis ? Low risk early ambulation encouraged 6. Allergic rhinitis ? Patient started on Claritin ? 03/17/2024; symptoms improved T Charges/Coding Visit Charges Inpatient E&M: 59771 Subs Hosp L1
[2024-03-18 09:00] VITALS: BP 114/72; PULSE 71; RESP 14; TEMP 36.6; O2SAT 99
[2024-03-18] MEDS: Loratadine 10 MG Tablet PO (09:13)
[2024-03-18] MEDS: Thiamine Hydrochloride 100 MG Tablet PO (09:13)
[2024-03-18] MEDS: Folic Acid 1 MG Tablet PO (09:14)
[2024-03-18] MEDS: buprenorphine HCL 8 MG TAB.SUBL 16 MG SL (10:49)
[2024-03-18] MEDS: Ibuprofen 600 MG Tablet PO (10:54)
[2024-03-18] MEDS: Ondansetron 8 MG Tablet PO ×2 (10:54→20:05)
[2024-03-18] MEDS: Gabapentin 300 MG Capsule PO (16:05)
[2024-03-18 16:14] VITALS: BP 117/68; PULSE 68; RESP 14; TEMP 36.6; O2SAT 98
[2024-03-18 20:04] VITALS: BP 129/97; PULSE 84; RESP 14; TEMP 36.6; O2SAT 99
[2024-03-18] MEDS: traZODone 100 MG Tablet PO (22:57)
[2024-03-19 04:00] VITALS: BP 107/60; PULSE 63; RESP 14; TEMP 36.6; O2SAT 96
[2024-03-19] MEDS: Ondansetron 8 MG Tablet PO (04:30)
[2024-03-19] MEDS: Dicyclomine 10 MG Capsule 20 MG PO (04:30)
[2024-03-19] MEDS: hydrOXYzine PAM 25 MG Capsule 50 MG PO (04:30)
[2024-03-19] MEDS: Gabapentin 300 MG Capsule PO (07:20)
[2024-03-19 07:59] VITALS: BP 124/84; PULSE 69; RESP 16; TEMP 36.6; O2SAT 100
[2024-03-19] MEDS: Folic Acid 1 MG Tablet PO (08:11)
[2024-03-19] MEDS: Thiamine Hydrochloride 100 MG Tablet PO (08:11)
[2024-03-19] MEDS: LORazepam 1 MG Tablet 2 MG PO (08:15)
--- NOTE | 2024-03-19 09:36 | DCINST_ITS ---
Discharge Instructions Diet Discharge Diet: No restrictions Activity Discharge Activity: Return to Normal Activity Dressing / Incision Call your doctor if you observe: Fever of 101 or Higher, Shortness of breath, Dizziness, Fainting spells, Swelling in the ankles, Chest pain and Increased palpitations (irregular heartbeat) Follow Up Care Test Results: Test results from this visit will be discussed in further detail at your follow- up appointment, if applicable. Discharge Plan Admission Admit Date/Time: 03/14/24 17:30 Attending Provider: Noe Cordova Primary Care Provider: Care Physician,No Primary Consulting Providers: Rosales Abarca; Rsoales Guo Discharge Orders/Prescriptions Prescriptions: Continued buprenorphine-naloxone 8-2 mg tablet, sublingual 2 tab SUBLINGUAL DAILY Discontinued cephalexin 500 mg capsule 500 mg PO TID 7 Days Qty: 21 0RF Referrals / Follow Up: Care Physician,No Primary [Primary Care Provider] - Disposition Disposition (needs filled in before D/C Order can be placed): Inpatient Rehab Unit/Facility
[2024-03-19] MEDS: Loratadine 10 MG Tablet PO (09:47)
[2024-03-19] MEDS: buprenorphine HCL 8 MG TAB.SUBL 16 MG SL (09:47)
--- NOTE | 2024-03-19 10:21 | PHA.DC.MR.R ---
Pharmacy PR Med Reconciliation Pharmacy Service has performed discharge medication reconciliation for this patient. The patient's discharge medication list was reviewed for discrepancies and discrepancies were resolved. Medications at Discharge Home Medications buprenorphine 8 mg-naloxone 2 mg sublingual tablet 2 tab sublingual DAILY HX OPIOID ABUSE 06/01/23
--- NOTE | 2024-03-19 15:16 | PCM.DC.SUM ---
Providers Date of Admission: 03/14/24 Primary Care Physician: No Primary Care Phys Reason For Visit: ACUTE ALCOHOL WITHDRAWAL IN THE SETTING OF Diagnosis Discharge Diagnosis (1) Chronic alcohol abuse: Status: Chronic Code(s): F10.10 - Alcohol abuse, uncomplicated Medications at Discharge Home Medications buprenorphine 8 mg-naloxone 2 mg sublingual tablet 2 tab sublingual DAILY HX OPIOID ABUSE 06/01/23 Hospital Course Operations None Procedures None Summary of Care Provided Minutes Spent on Discharge: 32 Hospital Course: Per HPI: TRES MERIDA, is a 28 F with a past medical history of UTI, pyelonephritis, history of depression, Hepatitis C, history of opiate abuse; on Suboxone and chronic EtOH abuse who presents to [facility] ER complaining of wanting help with EtOH detoxification. Ms. Merida reports her symptoms she typically drinks 1/5 bottle of vodka per day including one earlier today. She then began to feel little nauseous and started to have some tremoring suggestive of early withdrawals but she denies seizure or history of DTs. She states she has underwent a detox program here in the past. She denies associated fever, chills, vomiting, diarrhea or constipation. In the ER she was diagnosed with impending alcohol withdrawal in the setting of chronic alcohol abuse with her urine drug screen positive for amphetamines, MDMA and cannabis with a blood alcohol concentration of 279 mg/dL and she was then admitted to the general medical floor for ongoing care for stay that expected to be greater than 48 hours. Hospital Course: 1. Acute alcohol withdrawal/polysubstance abuse/chronic hepatitis C/tobacco dependence?28-year-old female presented to the hospital on Suboxone with a history of chronic alcohol abuse requesting detox. She tolerated the alcohol withdrawal protocol very well and met with 180 and requested inpatient rehab after discharge for detox. Because of this she was kept through the weekend and today she was able to discharge to inpatient rehab. She had no complaints or issues this morning and states that she is doing fairly well. On her admission lab work her urine drug screen was positive for amphetamines, MDMA, cannabis and she was counseled on cessation. As for her chronic hep C she will need to follow-up with a PCP as an outpatient once she clears rehab. I discussed with her the plan for discharge today and she expressed understanding of the risk benefits of going to the rehab facility and would like to go today. Physical Exam Narrative General: Alert, Oriented x3, Cooperative, No apparent distress HEENT: Atraumatic, PERRLA, EOMI, Normocephalic Oral: Moist Mucosa Neck: Supple, No JVD Lungs: Clear to auscultation, Normal air movement, No rhonchi, No wheeze, No rales Cardiovascular: Regular rate, Regular Rhythm, Normal S1, Normal S2, No murmurs Abdomen: Soft, Non Tender, Non-Distended, No Hepato-splenomegaly Extremities: No edema, Capillary Refill Less than 3 Seconds Skin: No rashes, No breakdown Musculoskeletal: No Tenderness to Palpation of Joints or Extremities Neurological: No focal neurological deficits, Motor Exam 5/5 strength throughout, Sensory exam intact to light touch and pain Psych/Mental Status: Normal Affect, Appropriate Weight / BMI Weight Weight: 170 lb 6.4 oz Body Mass Index (BMI) 28.3 ABG / Lab / Microbiology Data 03/14/24 15:20 03/14/24 15:20 D/C Instructions Discharge Diet: No restrictions Call your doctor if you observe: Fever of 101 or Higher, Shortness of breath, Dizziness, Fainting spells, Swelling in the ankles, Chest pain and Increased palpitations (irregular heartbeat) Meaningful Use Info Meaningful Use Meaningful Use Diagnoses (Choose all that apply): None applicable Ischemic Stroke Statin Dosing Therapy Reference: STATIN DOSE THERAPY REFERENCE: * Patients > 75 years receive moderate or high dose statin therapy. * Patients 75 years or YOUNGER should receive HIGH intensity statin dose unless contraindicated. You will be required to document reason for non-treatment if statin daily dose does not meet guidelines. HIGH DOSE STATIN THERAPY DAILY Atorvastatin > than or = to 40 mg Rosuvastatin > than or = to 20 mg Amlodipine + Atorvastatin > than or = to 2.5/40 mg Ezetimibe + Simvastatin 10/80 mg Simvastatin 80mg Discharge Plan Admission Admit Date/Time: 03/14/24 17:30 Attending Provider: Noe Cordova Primary Care Provider: Care Physician,No Primary Consulting Providers: Rosales Abarca; Rosales Guo Discharge Orders/Prescriptions Prescriptions: Continued buprenorphine-naloxone 8-2 mg tablet, sublingual 2 tab SUBLINGUAL DAILY Discontinued cephalexin 500 mg capsule 500 mg PO TID 7 Days Qty: 21 0RF Referrals / Follow Up: Care Physician,No Primary [Primary Care Provider] - Disposition Disposition (needs filled in before D/C Order can be placed): Home, Self Care Charges/Coding Visit Charges Inpatient E&M: 70532 Disch Hosp >30min
== END 2024-03-19 10:58 | disposition home or self-care (01) | DRG 897 ==
LOC: ED 16:29 → MS3 17:50
PROVIDERS: Family Medicine; Admitting Provider Internal Medicine; Emergency Provider Student in an Organized Health Care Education/Training Program; Referring Provider Internal Medicine; Visit Provider Family Medicine
DX: F10.239 Alcohol dependence with withdrawal, unspecified (principal); B18.2 Chronic viral hepatitis C; F17.210 Nicotine dependence, cigarettes, uncomplicated; F12.90 Cannabis use, unspecified, uncomplicated; J30.9 Allergic rhinitis, unspecified; Y90.8 Blood alcohol level of 240 mg/100 ml or more
CPT/HCPCS: 80048; 80307; 80320; 81001; 83735; 84100; 84703; 85025; 99283; J7120; A4216; G0480; J2405

== ENCOUNTER 2024-03-20 17:56 | Emergency (ER) | payer MEDICAID, SELFPAY ==
[2024-03-20 17:57] VITALS: BP 148/99; PULSE 83; RESP 17; TEMP 35.9; O2SAT 98; BMI 27.6
--- NOTE | 2024-03-20 19:08 | EDS_ITS ---
HPI History of Present Illness Chief Complaint: Headache Informant: patient Onset/Context/Timing Onset: Yesterday Context: Gradual Onset Timing: Continuous Quality: Sharp, burning Location: Bilateral eyes and frontal area Worsened by: Light Relieved by: Nothing Narrative Narrative: Patient presents with headache and eye pain that began yesterday. Patient states her pain is sharp and burning. Patient states it is in both eyes and frontal scalp area. Patient states her pain is worse with light. Patient states she has had some cloudy vision in her right eye. Patient is unsure if she got something in her eye yesterday while she was doing yard work and gardening. Patient admits to some nausea but denies any vomiting. Patient denies any chest pain or shortness of breath. Patient states she has a history of migraine headaches but states this was somewhat different and that the light makes her headache worse today and it usually does not affect her migraine headaches. PFSH PFS Medical History Desire for detoxification ETOH abuse History of drug use History of hepatitis C History of depression Multiparous Opioid use Tobacco use Home Medications buprenorphine 8 mg-naloxone 2 mg sublingual tablet 2 tab sublingual DAILY HX OPIOID ABUSE 06/01/23 [History Last Taken 05/31/23] Allergy/AdvReac Type Severity Reaction Status Date / Time No Known Allergies Allergy Verified 05/31/23 18:50 Family History Mother Diabetes Hypertension Thyroid disorder Social History Smoking Status: Current every day smoker tobacco type: cigarettes alcohol intake: current alcohol intake frequency: a few times a week substance use type: marijuana ROS ROS ED Constitutional Constitutional ED: Denies chills or fever(s) Eyes Eyes: Reports blurry vision; Denies change in vision ENT ENT ED: Denies rhinorrhea or sore throat Cardiovascular Cardiovascular: Denies chest pain or palpitations Respiratory/Chest Respiratory/Chest: Denies cough or dyspnea Gastrointestinal Gastrointestinal: Reports nausea; Denies vomiting Genitourinary Genitourinary ED: Denies dysuria or hematuria Musculoskeletal Musculoskeletal: Denies back pain or neck pain Integumentary Denies abscess or rash Neurologic Neurologic: Reports headache(s); Denies weakness Allergic/Immunologic Allergic/Immunologic ED: Denies mouth swelling or urticaria EXAM Physical Exam Const Vital Signs: 03/20/24 17:57 03/20/24 19:56 03/20/24 21:00 Temperature 96.7 F L 96.8 F L Temperature Source Temporal Temporal Pulse Rate 83 73 Respiratory Rate 17 16 18 Blood Pressure 148/99 H 138/76 H Blood Pressure Mean 115 96 Pulse Ox 98 97 Oxygen Delivery Method Room Air Room Air Positive well nourished and well developed General Appearance ED: well developed and NAD HEENT Reports moist mucous membranes Eyes PERRL and EOMs intact bilaterally Eyes Narrative: Conjunctival was injected on the right. Funduscopic examination was limited secondary to patient's photophobia. Neck supple and no JVD Resp normal respiratory effort and clear to auscultation bilaterally Cardio regular rate and regular rhythm GI non-tender and non-distended Palpation: soft Neuro oriented x3, CN's II-XII intact bilaterally and no sensory deficits noted Sensorium / Orientation: alert Motor Exam: strength 5/5 throughout Psych mental status grossly normal MDM MDM MDM Narrative Medical decision making narrative: Differential diagnosis includes corneal abrasion, foreign body, iritis, migraine headache, temporal arteritis, and cluster headache. CBC will be obtained to assess for leukocytosis and anemia. Basic metabolic profile will be obtained to assess for electrolyte abnormality renal function. Sed rate will be obtained to assess for temporal arteritis. Lab Data Attestation: I reviewed the patient's lab results. Lab results narrative: CBC was reviewed and was within normal limits. Sed rate was reviewed and was normal at 12. Basic metabolic profile was reviewed and was within normal limits. Labs: Laboratory Results - last 24 hr 03/20/24 20:30 WBC 6.0 RBC 4.22 Hgb 13.3 Hct 38.8 MCV 91.9 MCH 31.5 MCHC 34.3 RDW Std Deviation 39.2 RDW Coeff of [place] 11.6 Plt Count 202 MPV 8.3 Immature Gran % (Auto) 0.500 Neut % (Auto) 65.6 Lymph % (Auto) 22.4 [place] % (Auto) 9.2 Eos % (Auto) 1.8 Baso % (Auto) 0.5 Absolute Neuts (auto) 3.9 Absolute Lymphs (auto) 1.34 Nucleated RBC % 0 ESR 12 Sodium 136 Potassium 4.0 Chloride 102 Carbon Dioxide 30.0 Anion Gap 4 L BUN 13 Creatinine 0.89 Estim Creat Clear Calc 94.62 Est GFR (MDRD) Af Amer 96 Est GFR (MDRD) Non-Af 79 BUN/Creatinine Ratio 14.6 Glucose 103 Calcium 9.0 Treatment and Re-Evaluation :: Patient was given IV fluids, Reglan, and Benadryl. Patient had minimal i mprovement of her headache. Tetracaine and fluorescein dye was applied. There is a small corneal abrasion over the inferior lateral aspect of the left cornea. There are no foreign bodies noted. Anterior chamber was clear. There is no hyphema. Patient was given Ciloxan ophthalmic drops. Patient was instructed to use them in both eyes. Patient was given a dose of Imitrex and a dose of [place] l. Visual acuity was obtained. It was 20/200 in the right eye, 20/200 in the left eye, and 20/200 in both eyes. Intraocular pressures were obtained. Right eye was 20 and left eye was 19. Patient states she normally wears contacts and does not have them in at this time. Patient was instructed to rest in a dark quiet room. Patient was instructed to follow-up with her primary care physician in 2-3 days. Patient was instructed return if worse in any way. Patient understood and was agreeable with the plan. All questions were answered. Discharge Plan Triage Chief Complaint: Headache Other Complaint: Eye Problem ED Provider: Porfirio Prasad Dx/Rx/DC Orders Clinical Impression: Headache, migraine, Corneal abrasion, left Instructions: ED Corneal Abrasion, ED Headache Unspecified Prescriptions: No Action buprenorphine-naloxone 8-2 mg tablet, sublingual 2 tab SUBLINGUAL DAILY Primary Care Provider: Jaylene Moore Referrals: Jaylene Moore MD [Primary Care Provider] - 2 Days Care Physician,No Primary [Non-Staff] - Disposition Disposition: Home, Self Care
[2024-03-20 19:56] VITALS: RESP 16
[2024-03-20] MEDS: Metoclopramide 10 MG/2 ML Vial IV (20:08)
[2024-03-20] MEDS: DiphenhydrAMINE 50 MG/ML Syringe 25 MG IV (20:08)
[2024-03-20] MEDS: 0.9% Normal Saline (1000mL) 1,000 ML 999 ML IV (20:08)
[2024-03-20] MEDS: Fluorescein 1 MG STRIP 1 STRIP OPHTHALMIC (20:08)
[2024-03-20] MEDS: Tetracaine 0.5% Ophthalmic Bottle 1 DRP OPHTHALMIC (20:09)
[2024-03-20 20:54] LABS: Absolute Lymphocyte Count 1.34 X10^3/uL (0.83-4.51); Absolute Neutrophil Count 3.9 X10^3/uL (2.0-7.7); Basophil# 0.03 X10^3/uL; Basophil% 0.5 % (0-1); Eosinophil# 0.11 X10^3/uL; Eosinophils% 1.8 % (0-5); Hematocrit 38.8 % (37-47); Hemoglobin 13.3 g/dL (12.0-15.0); Lymphocyte # 1.34 X10^3/ul (0.83-4.51); Lymphocyte % 22.4 % (19-41); Mean Corp Hgb Conc 34.3 g/dL (32-36); Mean Corpuscular Hgb 31.5 pg (27.0-32.0); Mean Corpuscular Volume 91.9 fL (81-99); Mean Platelet Vol. 8.3 fl (6.2-12.0); Monocyte# 0.55 X10^3/uL; Monocyte% 9.2 % (0-10); NRBC Flagged by Analyzer 0 % (0-5); Neutrophil # 3.93 X10^3/uL (2.7-7.7); Neutrophil % 65.6 % (47-70); Platelet Count 202 K/mm3 (150-450); RBC Distribution Width CV 11.6 % (11.6-14.6); RBC Distribution Width SD 39.2 fl (35.1-43.9); Red Blood Count 4.22 M/mm3 (4.2-5.4)
[2024-03-20 21:00] VITALS: BP 138/76; PULSE 73; RESP 18; TEMP 36; O2SAT 97
[2024-03-20 21:00] LABS: Anion Gap 4 (5-15); BUN 13 mg/dL (7-18); BUN/Creat Ratio 14.6 RATIO (10-20); Chloride 102 mmol/L (98-107); Creatinine, Serum 0.89 mg/dL (0.55-1.02); EST Glomerular Filtration Rate 79 mL/min (>60); Est Glom Filt Rate - Afr Amer 96 mL/min (>60); Estimated Creatinine Clearance 94.62 ml/min; Glucose 103 mg/dL (74-106); Sodium Level 136 mmol/L (136-145)
[2024-03-20 21:06] LABS: Erythrocyte Sedimentation Rate 12 mm/hr (0-30)
[2024-03-20] MEDS: Ketorolac 30 MG/ML Syringe IV (23:17)
[2024-03-20] MEDS: Ciprofloxacin 0.3% 2.5ml Bottle EACH EYE (23:18)
[2024-03-20] MEDS: SUMAtriptan 6 MG/0.5 ML Vial SC (23:18)
[2024-03-20 23:58] VITALS: BP 127/66; PULSE 73; RESP 15; TEMP 36.4; O2SAT 99
== END 2024-03-20 23:59 | disposition home or self-care (01) ==
PROVIDERS: Emergency Provider Emergency Medicine; PCP Family Medicine; Visit Provider Emergency Medicine
DX: G43.909 Migraine, unspecified, not intractable, without status migrainosus (principal); Y93.H2 Activity, gardening and landscaping; S05.02XA Injury of conjunctiva and corneal abrasion without foreign body, left eye, initial encounter; F17.210 Nicotine dependence, cigarettes, uncomplicated; X58.XXXA Exposure to other specified factors, initial encounter; Y92.096 Garden or yard of other non-institutional residence as the place of occurrence of the external cause
CPT/HCPCS: 80048; 85025; 85652; 96361; 96372; 96374; 96375; 99285; J7030; A4216; J3030

== ENCOUNTER 2024-06-15 03:25 | Emergency (ER) | payer MEDICAID, SELFPAY ==
[2024-06-15 03:28] VITALS: BP 153/69; PULSE 95; RESP 16; TEMP 36.7; O2SAT 98; BMI 26.4
[2024-06-15 03:32] VITALS: BP 153/69; PULSE 91; RESP 16; TEMP 36.7; O2SAT 97
--- NOTE | 2024-06-15 04:19 | RAD_ITS ---
INDICATION: infection -- r/o FB EXAMINATION/TECHNIQUE: X-RAY - LEFT XR Forearm 2 Views 2 VIEWS COMPARISON: No relevant prior comparison study available FINDINGS: BONES: No fracture demonstrated. JOINTS: No dislocation. SOFT TISSUES: Unremarkable. No radiopaque foreign body identified. RAD/Forearm 2 Views IMPRESSION: No evidence of fracture. No radiopaque foreign body identified. Electronically Signed: Ebony Khan MD at 5:13 EDT ,
--- NOTE | 2024-06-15 04:24 | EX.ED.UPPERE ---
HPI History of Present Illness Chief Complaint: Upper Extremity Injury Informant: patient and friend Narrative Narrative: Presents for concern foreign body infection left forearm. Relapse IV drug use last 5 days. Uses meth and heroin. She checked her multiple arms. However she thinks something broke out from her left forearm. She been using tweezers to pick at her skin. She is been scratching at it. There is abrasion on her forearm. States she feels warm however no fevers. No chills. Prior similar symptoms: Yes PFSH PFSH Medical History Opioid use ETOH abuse Desire for detoxification History of depression Tobacco use History of drug use History of hepatitis C Multiparous Home Medications ?Medication ?Instructions ?Recorded ?Last Taken ?Type buprenorphine 8 mg-naloxone 2 mg 2 tab sublingual DAILY HX OPIOID 06/01/23 05/31/23 History sublingual tablet ABUSE bupropion HCl 150 mg 24 hr tablet, 150 mg PO QHS 06/15/24 Unknown History extended release cephalexin 500 mg capsule 500 mg PO Q6 #20 CAPSULES 06/15/24 Unknown Rx cetirizine 10 mg tablet (Zyrtec) 10 mg PO DAILY 06/15/24 Unknown History hydroxyzine pamoate 25 mg capsule 25 mg PO QHS 06/15/24 Unknown History Allergy/AdvReac Type Severity Reaction Status Date / Time No Known Allergies Allergy Verified 06/15/24 03:27 Family History Mother Diabetes Hypertension Thyroid disorder Social History Smoking Status: Current every day smoker tobacco type: cigarettes alcohol intake: current alcohol intake frequency: a few times a week substance use type: marijuana ROS ROS ED Constitutional Constitutional ED: Denies chills, fever(s) or sweats Eyes Eyes: Denies change in vision ENT ENT ED: Denies dysphagia or sore throat Cardiovascular Cardiovascular: Denies chest pain, leg edema, palpitations or racing heartbeat Respiratory/Chest Respiratory/Chest: Denies cough, dyspnea or dyspnea on exertion Gastrointestinal Gastrointestinal: Denies abdominal pain, diarrhea, nausea or vomiting Genitourinary Genitourinary ED: Denies dysuria, hematuria or urinary frequency Musculoskeletal Musculoskeletal: Denies back pain, extremity pain or neck pain Integumentary Reports wounds; Denies rash Neurologic Neurologic: Denies headache(s), paresthesias or weakness EXAM Physical Exam Const Vital Signs: 06/15/24 03:28 06/15/24 03:32 Temperature 98.1 F 98.1 F Temperature Source Oral Oral Pulse Rate 95 91 Respiratory Rate 16 16 Blood Pressure 153/69 H 153/69 H Blood Pressure Mean 97 97 Pulse Ox 98 97 Oxygen Delivery Method Room Air Room Air Positive well nourished and well developed Constitutional Narrative: Nontoxic General Appearance ED: well developed and NAD HEENT Reports moist mucous membranes normocephalic and atraumatic Eyes EOMs intact bilaterally and conjunctivae normal General Eye ED: Yes normal appearance of both eyes Neck no lymphadenopathy and supple General: Negative for tenderness Chest Wall Chest: Negative for tenderness Resp normal respiratory effort and normal air movement Effort and Inspection: symmetric chest movement; Negative for respiratory distress Cardio regular rate, regular rhythm and no murmurs Peripheral Pulses: pulses 2+ throughout GI normal to inspection, nondistended, normoactive bowel sounds and non-tender Palpation: Negative for guarding or rebound tenderness present Back/Spine no CVA tenderness and no thoracic nor lumbar tenderness Extremity normal to inspection General Extremety ED: Negative for edema or tenderness General Extremity: Negative for edema Neuro oriented x3 and no sensory deficits noted Sensorium / Orientation: awake and alert Skin Skin Narrative: Left upper extremity: There are puncture horn antecubital ecchymosis. Proximal forearm noted puncture horn along with abrasion skin down to the mid forearm. There is no surrounding indurations or erythema no fluctuance. No active drainage. Right upper extremity: Puncture horn antecubital ecchymosis swelling noted. Nontender. No drainage. MDM MDM MDM Narrative Medical decision making narrative: Interventions / MDM: Differential diagnosis: Cellulitis, IV drug abuse, polysubstance abuse Diagnosis considered but do not suspect: Foreign body however x-ray negative My EKG interpretation: N/A Imaging independently reviewed and interpreted by myself: 2 view left forearm: No radiopaque foreign body. External documents reviewed: N/A Test considered but not ordered:N/A ED course: Patient concerns for foreign body to left forearm. X-ray left forearm ordered. Punctures noted with ecchymosis, right upper arm noted area of erythema without any fluctuance that is slightly warm. X-ray negative for any radiopaque foreign bodies. Patient reassured on findings. However slight cellulitis on her right upper arm with history of IV drug use. Will start antibiotics. Outpatient follow-up. Return precautions. All questions were answered. Re-evaluation: stable Disposition discussed with patient/family/significant other: Patient and friend Case discussed with consulting clinician: N/A This note was generated with [employer] dictation software. It may contain incorrect words, spelling, and punctuation that were not noted in checking the note before signing. Discharge Plan Triage Chief Complaint: Upper Extremity Injury ED Provider: Hi Mark Dx/Rx/DC Orders Clinical Impression: Cellulitis of arm, left, Polysubstance abuse, Intravenous drug abuse Instructions: Substance Abuse Rehab Program, ED Cellulitis Prescriptions: New cephalexin 500 mg capsule 500 mg PO Q6 Qty: 20 0RF No Action buprenorphine-naloxone 8-2 mg tablet, sublingual 2 tab SUBLINGUAL DAILY hydroxyzine pamoate 25 mg capsule 25 mg PO QHS cetirizine [Zyrtec] 10 mg tablet 10 mg PO DAILY bupropion HCl 150 mg tablet extended release 24 hr 150 mg PO QHS Primary Care Provider: Jaylene Moore Referrals: Jaylene Moore MD [Primary Care Provider] - 3-5 Days Print Language: Italian Disposition Disposition: Home, Self Care Discharge Date/Time: 06/15/24 05:15
[2024-06-15 04:32] VITALS: BP 130/94; PULSE 77; RESP 18; TEMP 36.8; O2SAT 97
[2024-06-15 05:00] VITALS: BP 131/104; PULSE 92; RESP 18; TEMP 36.7; O2SAT 97
[2024-06-15] MEDS: Cephalexin 250 MG Capsule 500 MG PO (05:12)
[2024-06-15 05:13] VITALS: BP 131/104; PULSE 92; RESP 18; TEMP 36.7; O2SAT 98
== END 2024-06-15 05:15 | disposition home or self-care (01) ==
PROVIDERS: Emergency Provider Emergency Medicine; PCP Family Medicine; Visit Provider Emergency Medicine
DX: L03.114 Cellulitis of left upper limb (principal); F15.90 Other stimulant use, unspecified, uncomplicated; L03.113 Cellulitis of right upper limb; F12.90 Cannabis use, unspecified, uncomplicated; Z86.19 Personal history of other infectious and parasitic diseases; F17.210 Nicotine dependence, cigarettes, uncomplicated
CPT/HCPCS: 73090; 99282

== ENCOUNTER 2024-06-25 15:15 | Emergency (ER) | payer MEDICAID, SELFPAY ==
[2024-06-25 15:15] VITALS: BP 153/109; PULSE 104; RESP 22; TEMP 36.2; O2SAT 98; BMI 25.0
[2024-06-25 17:15] VITALS: PULSE 99; RESP 17; O2SAT 98
--- NOTE | 2024-06-25 17:32 | CT_ITS ---
EXAM: CT HEAD WITHOUT INTRAVENOUS CONTRAST CLINICAL INDICATION: Change in Mental Status TECHNIQUE: Multiple axial images were obtained of the head without intravenous contrast. This CT exam was performed using one or more of the following dose reduction techniques: automated exposure control, adjustment of the mA and/or kV according to patient size, and/or use of iterative reconstruction technique. COMPARISON: No relevant prior studies available. FINDINGS: BRAIN AND EXTRA-AXIAL SPACES: Unremarkable. No intra- or extra-axial hemorrhage. No evidence of acute infarct. No intracranial mass or mass effect. There is preservation of the wiseman/white matter interface. Posterior fossa structures are unremarkable. Ventricles are appropriate for age. No hydrocephalus. Basal cisterns are patent. BONES/JOINTS: Unremarkable. No discrete lytic or blastic abnormalities. SINUSES: Unremarkable as visualized. Clear. MASTOID AIR CELLS: Unremarkable. Clear. ORBITS: Visualized globes, extraocular muscles, optic nerves and retrobulbar fat appear unremarkable. CT/Brain/Head without Contrast IMPRESSION: Negative head/brain CT without intravenous contrast. Electronically Signed: Donald Nolan MD at 18:44 EDT ,
--- NOTE | 2024-06-25 17:33 | EX.ED.VIS.PS ---
HPI HPI - Psych History of Present Illness Chief Complaint: Mental Health Informant: patient and spouse/S.O. Narrative Narrative: Patient is a 29 year old female with history of alcohol abuse and polysubstance abuse presenting for concerns of psychosis. Patient started using methamphetamines intravenously 3 to 4 weeks ago. Over the past few days she has been having bad episodes that she has not been sleeping has been seeing shadow people. Apparently she thought something was clean to her back last night. She ran out of the apartment because she thought there is a shot a person there. Is currently on Suboxone but states she is not abusing that. She had a person told her that she is and now she think she is . Does report a history of anxiety and depression which she takes hydroxyzine and Wellbutrin for. Denies any alcohol use recently. Denies any HI or SI. Is with her significant other at the bedside. She is not interested in psychiatric placement or detox but would is amenable to being evaluated. No other complaints or concerns at this time. [facility] Medical History Opioid use ETOH abuse Desire for detoxification History of depression Tobacco use History of drug use History of hepatitis C Multiparous Home Medications ?Medication ?Instructions ?Recorded ?Last Taken ?Type buprenorphine 8 mg-naloxone 2 mg 2 tab sublingual DAILY HX OPIOID 06/01/23 05/31/23 History sublingual tablet ABUSE bupropion HCl 150 mg 24 hr tablet, 150 mg PO QHS 06/15/24 Unknown History extended release cephalexin 500 mg capsule 500 mg PO Q6 #20 CAPSULES 06/15/24 Unknown Rx cetirizine 10 mg tablet (Zyrtec) 10 mg PO DAILY 06/15/24 Unknown History hydroxyzine pamoate 25 mg capsule 25 mg PO QHS 06/15/24 Unknown History nitrofurantoin 100 mg PO Q12H 5 days #10 caps 06/25/24 Unknown Rx monohydrate/macrocrystals 100 mg capsule (Macrobid) potassium chloride 20 mEq 20 meq PO DAILY #7 tabs 06/25/24 Unknown Rx tablet,extended release Allergy/AdvReac Type Severity Reaction Status Date / Time No Known Allergies Allergy Verified 06/15/24 03:27 Family History Mother Diabetes Hypertension Thyroid disorder Social History Smoking Status: Current every day smoker tobacco type: cigarettes alcohol intake: current alcohol intake frequency: a few times a week substance use type: marijuana ROS ROS ED Constitutional Constitutional ED: Denies chills or fever(s) Eyes Eyes: Denies change in vision Respiratory/Chest Respiratory/Chest: Denies cough Gastrointestinal Gastrointestinal: Denies abdominal pain, nausea or vomiting Genitourinary Genitourinary ED: Reports dysuria and urinary frequency Musculoskeletal Musculoskeletal: Denies arthralgias or myalgias Integumentary Denies rash Neurologic Neurologic: Denies headache(s) Psychiatric Psychiatric: Reports anxiety and other Details: Visual hallucinations, methamphetamine abuse ; Denies suicidal ideation or suicidal thoughts EXAM Physical Exam Const Vital Signs: 06/25/24 15:15 06/25/24 17:15 06/25/24 19:00 Temperature 97.2 F L Temperature Source Temporal Pulse Rate 104 H 99 101 H Respiratory Rate 22 H 17 15 Blood Pressure 153/109 H Blood Pressure Mean 123 Pulse Ox 98 98 96 Oxygen Delivery Method Room Air Room Air Room Air 06/25/24 20:08 06/25/24 21:00 Temperature 97.1 F L Temperature Source Pulse Rate 101 H 102 H Respiratory Rate 19 H 18 Blood Pressure 146/99 H Blood Pressure Mean 114 Pulse Ox 96 98 Oxygen Delivery Method Room Air Positive well nourished and well developed General Appearance ED: well developed and NAD HEENT Reports moist mucous membranes Eyes PERRL Neck supple Neck Narrative: No meningeal signs Resp normal respiratory effort and clear to auscultation bilaterally Cardio no murmurs Rate: regular rate Rhythm: regular rhythm GI non-tender and non-distended Extremity normal to inspection General Extremety ED: Negative for edema or tenderness General Extremity: Negative for edema Neuro oriented x3 Sensorium / Orientation: alert Motor Exam: muscle tone normal throughout; Negative for general weakness Psych Appearance: grossly normal and well kempt Attitude: calm Activity / Motor Behavior: appropriate eye contact Speech: rapid Mood & Affect: depressed Thought Process: normal thought process Thought Content: hallucination(s) Positive for visual (Reports seeing ghost people but is not having any hallucinations at this time) Attention / Concentration: attention grossly intact and concentration grossly impaired Memory / Cognition: memory grossly intact Insight: insight good Judgement: fair Skin Skin Narrative: Scattered track horn on the upper extremities with no signs of secondary infection MDM MDM MDM Narrative Medical decision making narrative: Patient is evaluated for increased hallucinations and insomnia in the setting of methamphetamine abuse. Patient peers nontoxic in no acute distress. She is acting relatively appropriate in the emergency room and is cooperative. Significant other is at the bedside. Vital signs significant for mild tachycardia mildly elevated blood pressure. Screening lab work is obtained as well as a CT of the brain given her new onset hallucinations. Patient mid she has hit her head a couple times. Lab work shows a mildly elevated CPK but not consistent with rhabdomyolysis. She has a very mild elevation of her AST and ALT which is nonspecific. Her potassium is low at 2.8. She is given potassium replacement. Urinalysis concerning for urinary tract infection but is also contaminated. Patient does report urinary symptoms will be started on antibiotics (Macrobid). Urine culture sent. Urine drug is consistent with amphetamine and cannabis use. Alcohol levels negative. Patient is offered evaluation by counseling center for these delusions but declines. At this time while patient is having visual hallucinations and likely is having the sequelae of amphetamine abuse she does have capacity and is not an immediate harm to herself or others. She can leave if she chooses to. Will be placed on a short course of potassium supplements and antibiotics. Is given information for the counseling center. Encouraged abstain from methamphetamine use. Patient and significant the verbalized agreement understand with this plan. History & Record Review Additional record(s) reviewed:: Prior labs (Urine culture on 05/31/2023 reviewed positive for 11-25,000 E. coli which was only resistant to ampicillin) Lab Data Attestation: I reviewed the patient's lab results. Labs: Laboratory Results - last 24 hr 06/25/24 17:48 WBC 6.3 RBC 4.26 Hgb 12.9 Hct 37.0 MCV 86.9 MCH 30.3 MCHC 34.9 RDW Std Deviation 37.2 RDW Coeff of [place] 11.8 Plt Count 378 MPV 8.1 Immature Gran % (Auto) 0.500 Neut % (Auto) 58.7 Lymph % (Auto) 29.3 [place] % (Auto) 9.7 Eos % (Auto) 1.3 Baso % (Auto) 0.5 Absolute Neuts (auto) 3.7 Absolute Lymphs (auto) 1.85 Nucleated RBC % 0 Sodium 137 Potassium 2.8 L Chloride 102 Carbon Dioxide 29.0 Anion Gap 6 BUN 14 Creatinine 0.71 Estim Creat Clear Calc 104.25 Est GFR (MDRD) Af Amer 125 Est GFR (MDRD) Non-Af 103 BUN/Creatinine Ratio 19.8 Glucose 89 Calcium 9.0 Total Bilirubin 0.60 AST 46 H ALT 74 H Alkaline Phosphatase 54 Total Creatine Kinase 399 H Total Protein 8.1 Albumin 3.8 Globulin 4.3 H Albumin/Globulin Ratio 0.9 Serum , Qual NEGATIVE Urine Color Yellow Urine Clarity Clear Urine pH 6.0 Ur Specific [place] 1.020 Urine Protein 30 H Urine Glucose (UA) Normal Urine Ketones 50 H Urine Occult Blood Negative Urine Nitrite Negative Urine Bilirubin Negative Urine Urobilinogen 1 H Ur Leukocyte Esterase 500 H Urine RBC 0 SEEN Urine WBC >100 SEEN Ur Squamous Epith Cells 50-100 SEEN Urine Bacteria 2+ Urine Mucus 3+ Urine Opiates Screen NEGATIVE Urine Methadone Screen NEGATIVE Ur Barbiturates Screen NEGATIVE Ur Phencyclidine Scrn NEGATIVE Ur Amphetamines Screen POSITIVE H MDMA (Ecstasy) Screen POSITIVE H U Benzodiazepines Scrn NEGATIVE Urine Cocaine Screen NEGATIVE U Cannabinoids Screen POSITIVE H Ur Drug Screen Comment Ethyl Alcohol < 3.0 Radiography Diagnostic Testing: Clinical Impression(s) from Imaging Studies Brain CT 06/25/24 17:32 IMPRESSION: Negative head/brain CT without intravenous contrast. Electronically Signed: Donald Nolan MD at 18:44 EDT Reading Location ID and State: [facility] / [place] Tel , Service support , Discharge Plan Triage Chief Complaint: Mental Health ED Provider: Moon Márquez Dx/Rx/DC Orders Clinical Impression: Amphetamine abuse, Hallucination, visual, Acute hypokalemia, Urinary tract bacterial infections Instructions: Urinary Tract Infections in Women, ED Drug Abuse, ED Hypokalemia Prescriptions: New nitrofurantoin monohyd/m-cryst [Macrobid] 100 mg capsule 100 mg PO Q12H 5 Days Qty: 10 0RF Rx Instructions: must administer with a meal/food potassium chloride 20 mEq tablet extended release 20 meq PO DAILY Qty: 7 0RF No Action buprenorphine-naloxone 8-2 mg tablet, sublingual 2 tab SUBLINGUAL DAILY hydroxyzine pamoate 25 mg capsule 25 mg PO QHS cetirizine [Zyrtec] 10 mg tablet 10 mg PO DAILY bupropion HCl 150 mg tablet extended release 24 hr 150 mg PO QHS cephalexin 500 mg capsule 500 mg PO Q6 Qty: 20 0RF Primary Care Provider: Jaylene Moore Referrals: Counseling,Center [Group of Physicians] - As soon as possible Jaylene Moore MD [Primary Care Provider] - [facility] [Non-Staff] - As soon as possible Activity Restrictions/Additional Instructions: I suspect you are having hallucinations and psychotic symptoms associated with amphetamine use. Please follow-up with the counseling center for further mental health evaluation and help. You have also given information for 180. You are seen in detox. Your potassium was low and your urinalysis was consistent with infection. You have been prescribed potassium supplements as well as antibiotic. Please take all medications as prescribed and follow-up with your family care doctor. If your symptoms worsen or if you change your mind would like ER psychiatric evaluation please return to the emergency room. Print Language: Lao Disposition Disposition: Home, Self Care Discharge Date/Time: 06/25/24 21:09
[2024-06-25] MEDS: OLANZapine 2.5 MG Tablet 5 MG PO (17:57)
[2024-06-25 18:11] LABS: Absolute Lymphocyte Count 1.85 X10^3/uL (0.83-4.51); Absolute Neutrophil Count 3.7 X10^3/uL (2.0-7.7); Basophil# 0.03 X10^3/uL; Basophil% 0.5 % (0-1); Eosinophil# 0.08 X10^3/uL; Eosinophils% 1.3 % (0-5); Hemoglobin 12.9 g/dL (12.0-15.0); Lymphocyte # 1.85 X10^3/ul (0.83-4.51); Lymphocyte % 29.3 % (19-41); Mean Corp Hgb Conc 34.9 g/dL (32-36); Mean Corpuscular Hgb 30.3 pg (27.0-32.0); Mean Corpuscular Volume 86.9 fL (81-99); Mean Platelet Vol. 8.1 fl (6.2-12.0); Monocyte# 0.61 X10^3/uL; Monocyte% 9.7 % (0-10); NRBC Flagged by Analyzer 0 % (0-5); Neutrophil # 3.72 X10^3/uL (2.7-7.7); Neutrophil % 58.7 % (47-70); Platelet Count 378 K/mm3 (150-450); RBC Distribution Width CV 11.8 % (11.6-14.6); RBC Distribution Width SD 37.2 fl (35.1-43.9); Red Blood Count 4.26 M/mm3 (4.2-5.4); White Blood Count 6.3 K/mm3 (4.4-11.0)
[2024-06-25 18:40] LABS: Alcohol, Blood (Medical)-Serum < 3.0 mg/dL
[2024-06-25 18:41] LABS: ALB/GLOB Ratio 0.9 RATIO (0.9-2.4); AST(SGOT) 46 U/L (15-37); Alanine Aminotransfer ALT/SGPT 74 U/L (13-56); Albumin, Serum 3.8 g/dL (3.2-5.0); Alkaline Phosphatase 54 U/L (45-117); Anion Gap 6 (5-15); BUN 14 mg/dL (7-18); BUN/Creat Ratio 19.8 RATIO (10-20); CPK Total, Creatine Kinase 399 U/L (26-192); Chloride 102 mmol/L (98-107); Creatinine, Serum 0.71 mg/dL (0.55-1.02); EST Glomerular Filtration Rate 103 mL/min (>60); Est Glom Filt Rate - Afr Amer 125 mL/min (>60); Estimated Creatinine Clearance 104.25 ml/min; Globulin 4.3 g/dL (2.2-4.2); Glucose 89 mg/dL (74-106); Potassium 2.8 mmol/L (3.5-5.1); Protein, Total 8.1 g/dL (6.4-8.2); Sodium Level 137 mmol/L (136-145)
[2024-06-25 18:55] LABS: Internal QC Validated? YES +Cl - CLEAR BKGD; Pregnancy, Serum, hCG Quali. NEGATIVE Negative
[2024-06-25 19:00] VITALS: PULSE 101; RESP 15; O2SAT 96
[2024-06-25 19:09] LABS: Red Blood Cells-Urine 0 SEEN /hpf (0-5)
[2024-06-25 19:26] LABS: Color, Urine Yellow (Yellow); Glucose, Dipstick Normal (Normal); Ketone-Dipstick 50 mg/dl (Negative); Leukocyte Esterase-Dipstick 500 /ul (Negative); Nitrite-Dipstick Negative (Negative); Occult Blood-Urine Negative /ul (Negative); Protein-Dipstick 30 mg/dl (Negative); Urine Bilirubin Dipstick Negative (Negative); Urine Clarity Clear (Clear); Urine Urobilinogen 1 mg/dl (Normal)
[2024-06-25 19:36] LABS: Bacteria 2+ /hpf (None Seen); Mucous, Urine 3+ /hpf (<or=2+); Squamous Epithelial Cells - UA 50-100 SEEN /hpf (5-10); White Blood Cells >100 SEEN /hpf (0-5)
[2024-06-25 19:43] LABS: Amphetamine Urine VISTA POSITIVE (<1000 ng/mL); Barbiturate Urine VISTA NEGATIVE (< 200 ng/mL); Benzodiazepine Urine VISTA NEGATIVE (< 200 ng/mL); Cocaine Urine VISTA NEGATIVE (< 300 ng/mL); Ecstacy Urine VISTA POSITIVE (< 500 ng/mL); Methadone Urine VISTA NEGATIVE (< 300 ng/mL); PCP Urine VISTA NEGATIVE (< 25 ng/mL); THC Urine VISTA POSITIVE (< 50 ng/mL); Vista UDS pH Range 5
[2024-06-25] MEDS: Potassium Chloride Oral Soln 20 MEQ/15 ML UDC 40 MEQ PO (19:58)
[2024-06-25] MEDS: Nitrofurantoin Macrocrystals 100 MG Capsule PO (20:04)
--- NOTE | 2024-06-25 20:05 | ED.RN ---
Pt requesting to leave because I have other things I have to do tonight. Pt admits to using meth and stated I will stop using on my own. This RN spoke to Dr Márquez and plan of care is agreeable at discharge. Pt states that she will follow up with the counseling center.
[2024-06-25 20:08] VITALS: PULSE 101; RESP 19; TEMP 36.2; O2SAT 96
[2024-06-25 21:00] VITALS: BP 146/99; PULSE 102; RESP 18; O2SAT 98
== END 2024-06-25 21:09 | disposition home or self-care (01) ==
PROVIDERS: Emergency Provider Emergency Medicine; PCP Family Medicine; Visit Provider Emergency Medicine
DX: F15.10 Other stimulant abuse, uncomplicated (principal); F19.10 Other psychoactive substance abuse, uncomplicated; E87.6 Hypokalemia; F41.9 Anxiety disorder, unspecified; F17.210 Nicotine dependence, cigarettes, uncomplicated; R44.1 Visual hallucinations; F10.10 Alcohol abuse, uncomplicated; F32.A Depression, unspecified; Z79.899 Other long term (current) drug therapy; R30.0 Dysuria; R35.0 Frequency of micturition; N39.0 Urinary tract infection, site not specified
CPT/HCPCS: 70450; 80053; 80307; 81001; 82077; 82550; 84703; 85025; 87086; 99283